=== PATIENT | male | born 1955 | race Caucasian/White ===

== ENCOUNTER 2019-09-09 10:23 | Outpatient (CLI) | payer MEDICARE, SELFPAY ==
[2019-09-09 10:41] LABS: Basophils Absolute Auto 0.05 K/mm3 (0.00-0.10); Basophils Percent Auto 0.9 % (0.0-1.0); Eosinophils Absolute Auto 0.21 K/mm3 (0.02-0.50); Eosinophils Percent Auto 3.8 % (1.0-6.0); Hematocrit 33.2 % (40.0-54.0); Hemoglobin 10.7 g/dL (14.0-18.0); Immature Granulocyte Absolute 0.02 K/mm3 (0.00-0.00); Immature Granulocyte Percent A 0.4 % (0.0-0.0); Immature Platelet Fraction Pct 6.9 % (1.0-7.0); Lymphocytes Absolute Auto 0.81 K/mm3 (1.10-4.50); Lymphocytes Percent Auto 14.7 % (18.0-42.0); Mean Corpuscular HGB Conc 32.2 g/dL (32.0-36.0); Mean Corpuscular Hemoglobin 29.6 pg (27.0-31.0); Mean Corpuscular Volume 91.7 fL (78.0-102.0); Mean Platelet Volume 11.5 fl (8.7-11.0); Monocytes Absolute Auto 0.54 K/mm3 (0.10-0.90); Monocytes Percent Auto 9.8 % (2.0-11.0); Neutrophils Absolute Auto 3.9 K/mm3 (1.7-7.2); Neutrophils Percent Auto 70.4 % (50.0-70.0); Platelet Count Result 120 K/mm3 (150-420); Red Blood Count 3.62 M/mm3 (4.70-6.10); Red Cell Distribution Width 14.1 % (11.6-14.4); White Blood Count 5.5 K/mm3 (4.8-10.8)
[2019-09-09 11:18] LABS: Alanine Aminotransferase 13 U/L (16-63); Albumin Level 4.2 g/dL (3.4-5.0); Alkaline Phosphatase 148 U/L (46-116); Anion Gap 16.8 mmol/L (7-16); Aspartate Amino Transferase 12 U/L (15-37); Bilirubin,Total 0.3 mg/dL (0.00-1.00); Blood Urea Nitrogen 14 mg/dL (7-18); Calcium 9.8 mg/dL (8.5-10.1); Carbon Dioxide 27 mmol/L (21-32); Chloride 103 mmol/L (98-108); Cholesterol 155 mg/dL (0-200); Estimated Glomerular Filt Rate 34; Glucose 95 mg/dL (70-99); HDL Direct 32 mg/dL (40-60); LDL Cholesterol Calculated 99 mg/dL (<130); Osmolality Calculated 296 mOsm/kg (285-295); Potassium 3.8 mmol/L (3.5-5.1); Sodium 143 mmol/L (136-145); Total Protein 8.2 g/dL (6.4-8.2); Triglycerides 121 mg/dL (0-150)
[2019-09-09 12:41] LABS: Thyroid Stimulating Hormone Reflex 7.29 u/IU/mL (0.36-3.74)
== END 2019-09-09 10:24 | disposition home or self-care (01) ==
LOC: CHSLAB 10:28
PROVIDERS: PCP Family Medicine; Visit Provider Family Medicine
DX: E20.9 Hypoparathyroidism, unspecified (principal); G40.909 Epilepsy, unspecified, not intractable, without status epilepticus; Z79.899 Other long term (current) drug therapy
CPT/HCPCS: 36415; 80053; 80061; 80184; 84439; 84443; 85025; 85055

== ENCOUNTER 2020-03-09 10:00 | Outpatient (CLI) | payer MEDICARE, SELFPAY ==
[2020-03-09 11:07] LABS: Alanine Aminotransferase 10 U/L (16-63); Albumin Level 3.6 g/dL (3.4-5.0); Alkaline Phosphatase 105 U/L (46-116); Anion Gap 12 mmol/L (8-16); Aspartate Amino Transferase 13 U/L (15-37); Bilirubin,Total 0.5 mg/dL (0.00-1.00); Blood Urea Nitrogen 23 mg/dL (7-18); Carbon Dioxide 26 mmol/L (21-32); Chloride 102 mmol/L (98-108); Estimated Glomerular Filt Rate 20; Glucose 93 mg/dL (70-99); Osmolality Calculated 293 mOsm/kg (285-295); Potassium 3.9 mmol/L (3.5-5.1); Sodium 140 mmol/L (136-145); Total Protein 7.7 g/dL (6.4-8.2)
[2020-03-09 11:29] LABS: Thyroid Stimulating Hormone Reflex 7.19 u/IU/mL (0.36-3.74)
[2020-03-09 12:03] LABS: Free T4 Free Thyroxine Reflex 0.99 ng/dL (0.76-1.46)
[2020-03-13 05:04] LABS: T4 Thyroxine 7.3 mcg/dL (4.9-10.5)
[2020-03-13 10:20] LABS: Total Triiodothyronine (T3) 86 ng/dL (76-181)
== END 2020-03-09 10:01 | disposition home or self-care (01) ==
PROVIDERS: PCP Family Medicine; Visit Provider Family Medicine
DX: R79.89 Other specified abnormal findings of blood chemistry (principal); E03.9 Hypothyroidism, unspecified; G40.909 Epilepsy, unspecified, not intractable, without status epilepticus
CPT/HCPCS: 36415; 80053; 80184; 84436; 84439; 84443; 84480

== ENCOUNTER 2020-04-04 14:45 | Emergency (ER) | payer MEDICARE, MEDICAID, SELFPAY ==
[2020-04-04] VITALS (11 sets, daily range): BP systolic 100–136; BP diastolic 51–68; PULSE 64–88; RESP 12–16; TEMP 35.9–36.9; O2SAT 96–100
--- NOTE | ~2020-04-04 | XR_ITS ---
EXAMINATION: XR chest 1V portable DATE: 04/04/2020 15:34 INDICATION: Syncope. TECHNIQUE: A single frontal view of the chest was obtained. COMPARISON: None. FINDINGS: The patient is rotated slightly to his right. There is mild atelectasis at left lung base. No pleural effusion or pneumothorax. The heart size is normal. There is enlargement of the superior m ediastinum. IMPRESSION: 1. Mild atelectasis at left lung base. 2. Enlargement of the superior mediastinum, which may be lymphadenopathy or a variant of vascularity. Chest CT with contrast is recommended. Reviewed, dictated and finalized at location A. IMPRESSION: 1. Mild atelectasis at left lung base. 2. Enlargement of the superior mediastinum, which may be lymphadenopathy or a v ariant of vascularity. Chest CT with contrast is recommended.
--- NOTE | ~2020-04-04 | CT_ITS ---
EXAMINATION: CT brain wo con DATE: 04/04/2020 15:33 INDICATION: Altered mental status TECHNIQUE: Computed tomography (CT) of the head was performed without intravenous contrast. Sagittal and coronal reconstructions were performed. The mA was adjusted according to patient size. Iterative reconstruction technique was employed. The dose-length product was 756.67 mGy-cm. COMPARISON: None FINDINGS: No acute intracranial hemorrhage, acute infarction or abnormal extra axial fluid collection. There is mild to moderate scattered white matter hypoattenuation consistent with chronic small vessel ischemi c disease. Dystrophic parenchymal calcifications at the bilateral basal ganglia including the lentifo rm nuclei and caudate nuclei, thalami in the bilateral frontal ring radiata and at the bilateral ce rebellar hemispheres, left greater than right. Symmetric prominence of the sulci consistent with mild age-appropriate diffuse cerebral volume loss. Ventricles are normal and symmetric. No mass/mass eff ect. Changes of bilateral intraocular lens replacement. The orbits, paranasal sinuses and mastoid air cells are normal. IMPRESSION: 1. No acute intracranial process. 2. Calcifications at the bilateral basal ganglia, thalami, ring radiata white matter and cerebellum consistent with Fahr syndrome. Differential would include primary Fahr disease or secondary calcific ation related to parathyroid hormone endocrinopathy, vasculitis, mitochondrial disorder, chronic infe ction or prior toxic insult. 3. Mild to moderate scattered white matter hypoattenuation which could be related to chronic small ve ssel ischemic disease or in etiology as the calcifications. Reviewed, dictated and finalized at location A. IMPRESSION: 1. No acute intracranial process. 2. Calcifications at the bilateral basal ganglia, thalami, ring radiata white matter and cerebellum consistent with Fahr syndrome. Differential would includ e primary Fahr disease or secondary calcification related to parathyroid hormon e endocrinopathy, vasculitis, mitochondrial disorder, chronic infection or prio r toxic insult. 3. Mild to moderate scattered white matter hypoattenuation which could be relat ed to chronic small vessel ischemic disease or in etiology as the calcification s.
--- NOTE | 2020-04-04 14:49 | ECG_ITS ---
Measurements Intervals [place] Rate: 63 P: 75 WY: 203 QRS: 60 QRSD: 119 T: 25 QT: 418 QTc: 431 Interpretive Statements SINUS RHYTHM BORDERLINE AV CONDUCTION DELAY INCOMPLETE RIGHT BUNDLE BRANCH BLOCK NONSPECIFIC ST & T-WAVE ABNORMALITY- DIFFUSE LEADS BASELINE ARTIFACT- I, II, III, AVR, AVL, AVF, V1 BORDERLINE ECG Electronically Signed On 04-04-2020 16:46:50 CDT by Mitlu May D.O.
--- NOTE | 2020-04-04 14:51 | ED.AMS ---
HPI - Altered Mental Status General Chief Complaint: Altered Mental Status Stated Complaint: AMB Time Seen by Provider: 04/04/20 14:51 Source: EMS Mode of arrival: EMS Limitations: altered mental status History of Present Illness HPI narrative: 65-year-old man brought to the emergency department by EMS after his neighbor saw him slumped over in his chair for at least a 20 minute period. EMS found him he will hemodynamically stable but nonresponsive. Blood glucose in the ambulance was 160. No seizure activity was witnessed by the bystander or EMS. Further questioning has the patient denying hematuria, black or bloody stools, vomiting and blood in vomitus. complaint: altered mental status Onset (ago): unknown Severity: severe Consistency of symptoms: constant Context: seizure disorder Treatments prior to arrival: IV fluid Related Data Home Medications Medication Instructions Recorded Confirmed ergocalciferol (vitamin D2) 1,250 mcg PO WEEKLY 04/04/20 04/04/20 [Vitamin D2] Allergies Allergy/AdvReac Type Severity Reaction Status Date / Time ciprofloxacin Allergy Intermediate Rash Verified 03/09/20 09:31 clavulanic acid [Augmentin] Allergy Intermediate Rash Verified 03/09/20 09:31 doxorubicin Allergy Intermediate Rash Verified 03/09/20 09:31 amoxicillin [Augmentin] Allergy Mild Rash Verified 03/09/20 09:31 minocycline Allergy Mild Rash Verified 03/09/20 09:31 Sulfonamides Allergy Intermediate Rash Uncoded 12/29/19 10:28 Dilantin-125 Allergy Mild Rash Uncoded 12/29/19 10:28 Review of Systems Review of Systems: ROS unobtainable: Yes unobtainable due to mental status PMFSH Past Medical History Medical History Elevated TSH GERD (gastroesophageal reflux disease) Hypoparathyroidism Seizure disorder Surgical History Surgical History History of appendectomy 2009 History of hernia repair 1977 & 1961 Social History Social History Smoking status: Former smoker Additional smoking assessment comments: 15 pack year history Gender identity (if verbalized by the patient): Male Exam Const: General: no acute distress and ill appearing Limitations: altered mental status (GCS 13) Other: oriented to self, date of HENMT: Head: normal to inspection Ears: external ears normal, TM's normal bilaterally and EAC's normal Face and sinus: normal facial exam Mouth: Yes moist mucous membranes Throat: posterior oropharynx normal Eyes: Conjunctivae: conjunctivae normal Pupils: Equal, round and reactive pupils present EOM: EOMs intact bilaterally Other: Right pupil irregularly shaped. Neck: Neck: normal visual inspection and no lymphadenopathy Resp: Effort & Inspection: normal respiratory effort and not labored Auscultation: clear to auscultation bilaterally, no rales, no rhonchi and no wheezes Cardio: Rate: regular rate Rhythm: regular rhythm Heart sounds: no murmurs GI: GI Palp: Yes Soft to palpation, No Tenderness to palpation present (GI), No Guarding due to palpation present (GI), No Rigid due to palpation and No Palpable mass present Skin: General skin exam: no jaundice and pallor Rashes: no rashes Neuro: General: moves all extremities and no focal motor deficits Cranial nerves: Yes Nystagmus not present Speech: Abnormal speech present slurred Extrem: General: normal to inspection and no clubbing, cyanosis or edema Psych: Appearance: grossly normal and well kempt Affect: normal affect Attitude: cooperative Course Course Emergency Course: 1625: patient is gradually becoming more responsive however he is still quite disoriented. Patient states that he wants to go home. I explained to the patient that he has severe renal failure as well as severe anemia and needs hospitalization for treatment. Patient reiterated that he want
[2020-04-04 14:58] LABS: Glucose Point of Care 120 (65-105)
[2020-04-04] MEDS: SODIUM CHLORIDE 0.9% IV 1,000 ML 999 ML IV CONT (15:00)
[2020-04-04 15:09] LABS: Occult Blood Negative (Negative)
[2020-04-04 15:11] LABS: Add Urine Microscopic? YES; Appearance Urine Clear (Clear); Bilirubin Urine Negative (Negative); Blood Urine 1+ (Negative); Color Urine Yellow (Yellow); Glucose Urine UA Negative (Negative); Ketones Urine Negative (Negative); Leukocyte Esterase Ur Negative (Negative); Nitrate Urine Negative (Negative); Protein Urine Negative (Negative); Specific Grav Ur 1.015 (1.010-1.020); Urobilinogen Urine 0.2 mg/dL (0.2-1.0)
[2020-04-04 15:17] LABS: Base Excess ABG -1.2 mmol/L (0-2); HCO3 ABG 22.6 mmol/L (23-29); Oxygen Content ABG 9.9 %vol (16.0-22.0); Oxygen Saturation ABG 99.1 % (95-97); Oxyhemoglobin 96.4 % (94-100); PCO2 ABG 33.7 mmHg (35-45); PO2 ABG 197.7 mmHg (80-90); Total Hemoglobin 6.9 g/dL; pH ABG 7.45 (7.35-7.45)
[2020-04-04 15:18] LABS: Basophils Absolute Auto 0.02 K/mm3 (0.00-0.10); Basophils Percent Auto 0.4 % (0.0-1.0); Eosinophils Absolute Auto 0.12 K/mm3 (0.02-0.50); Eosinophils Percent Auto 2.5 % (1.0-6.0); Immature Granulocyte Absolute 0.04 K/mm3 (0.00-0.00); Immature Granulocyte Percent A 0.8 % (0.0-0.0); Immature Platelet Fraction Pct 5.7 % (1.0-7.0); Lymphocytes Absolute Auto 0.33 K/mm3 (1.10-4.50); Lymphocytes Percent Auto 6.9 % (18.0-42.0); Mean Corpuscular HGB Conc 32.1 g/dL (32.0-36.0); Mean Corpuscular Hemoglobin 33.3 pg (27.0-31.0); Mean Corpuscular Volume 103.9 fL (78.0-102.0); Mean Platelet Volume 11.6 fl (8.7-11.0); Monocytes Absolute Auto 0.29 K/mm3 (0.10-0.90); Neutrophils Percent Auto 83.4 % (50.0-70.0); Platelet Count Result 81 K/mm3 (150-420); Red Cell Distribution Width 13.7 % (11.6-14.4); White Blood Count 4.8 K/mm3 (4.8-10.8)
[2020-04-04 15:19] LABS: WBC Urine 0-3 /hpf (0-3)
[2020-04-04 15:20] LABS: Bacteria Urine Trace /hpf; Squamous Epithelial Cell Urine Few /hpf (Few)
[2020-04-04 15:22] LABS: Hematocrit 18.7 % (40.0-54.0)
[2020-04-04 15:26] LABS: Device ROOM AIR; Modified Allen's Test Pass; Site Drawn RIGHT BRACHIAL
[2020-04-04 15:30] LABS: INR 1.2; Partial Thromboplastin Time 29.7 SEC (22.3-31.6)
[2020-04-04 15:33] LABS: Lactic Acid Reflex 1.3 mmol/L (0.4-2.0)
[2020-04-04 15:40] LABS: Acetaminophen 2 ug/mL (10-30); Alanine Aminotransferase 11 U/L (16-63); Albumin Level 3.2 g/dL (3.4-5.0); Alkaline Phosphatase 88 U/L (46-116); Ammonia 12 umol/L (11-32); Anion Gap 11 mmol/L (8-16); Aspartate Amino Transferase < 10 U/L (15-37); Bilirubin,Total 0.5 mg/dL (0.00-1.00); Blood Urea Nitrogen 29 mg/dL (7-18); Calcium 10.9 mg/dL (8.5-10.1); Carbon Dioxide 26 mmol/L (21-32); Chloride 103 mmol/L (98-108); Estimated CRCL calculation 17 ml/min; Estimated Glomerular Filt Rate 17; Ethanol 3 mg/dL (0-6); Glucose 120 mg/dL (70-99); Osmolality Calculated 296 mOsm/kg (285-295); Potassium 2.6 mmol/L (3.5-5.1); Salicylate 2.2 mg/dL (2.8-20.0); Sodium 140 mmol/L (136-145); Total Protein 6.6 g/dL (6.4-8.2)
[2020-04-04 15:41] LABS: Creatine Kinase < 7 U/L (39-308); Troponin I < 0.02 ng/mL (0.00-0.056)
[2020-04-04] MEDS: SODIUM CHLORIDE 0.9% IV 250 ML 30 ML IV CONT (16:40)
[2020-04-04 16:53] LABS: Creatine Kinase 9 U/L (39-308); Lactate Dehydrogenase 80 U/L (85-227); Phosphorus 3.7 mg/dL (2.6-4.7)
== END 2020-04-04 20:20 | disposition short-term general hospital (02) ==
PROVIDERS: Emergency Provider Emergency Medicine; PCP Family Medicine
DX: G40.909 Epilepsy, unspecified, not intractable, without status epilepticus (principal); E87.6 Hypokalemia; R41.0 Disorientation, unspecified; D64.9 Anemia, unspecified; N17.9 Acute kidney failure, unspecified; K21.9 Gastro-esophageal reflux disease without esophagitis; E20.9 Hypoparathyroidism, unspecified; Z87.891 Personal history of nicotine dependence
CPT/HCPCS: 36415; 36430; 36600; 70450; 71045; 80053; 80184; 80307; 81001; 82140; 82272; 82550; 82805; 83605; 83615; 84100; 84443; 84484; 85025; 85055; 85610; 85730; 86850; 86900; 86901; 86920; 87040; 93005; 96360; 96361; 99285; J7030; J7050; P9016

== ENCOUNTER 2020-04-04 21:16 | Inpatient (IN) | payer MEDICARE, MEDICAID, SELFPAY ==
--- NOTE | ~2020-04-04 | US_ITS ---
EXAMINATION: US renal BI DATE: 04/05/2020 15:47 INDICATION: Chronic renal failure TECHNIQUE: Multiple ultrasound grayscale images of the kidneys were obtained. COMPARISON: None. FINDINGS: The right kidney measures 9.2 x 4.3 x 5.1 cm. The left kidney measures 10.2 x 4.6 x 4.9 cm. The kidne ys demonstrate normal echogenicity. There is no hydronephrosis in either kidney. No stones identifie d. The bladder is decompressed around a Urias catheter which limits evaluation. IMPRESSION: 1. Normal kidneys without hydronephrosis. Reviewed, dictated and finalized at location A.
--- NOTE | 2020-04-04 21:42 | ADMGEN ---
This patient, Phong Lee, was admitted to Medical Room 249-01. Patient/family oriented to hospital policies and general routines including ID bracelet, bed and alarms, visiting hours, pain management, procedures, bathroom and other care routines, personal items, smoking policy, room service/diet, and visiting hours. Valuables list has been completed. Information on how to activate the Rapid Response Team has been discussed. Patient/Family are encouraged to report perceived risks to care and to ask questions if they do not understand what they are told or what they should do.
[2020-04-04 21:48] VITALS: BP 134/58; PULSE 73; RESP 16; TEMP 36.9; O2SAT 100
[2020-04-04 22:22] VITALS: BMI 25.7
[2020-04-04 22:31] LABS: Hematocrit 24.3 % (42.0-52.0); Hemoglobin 8.1 g/dL (14.0-18.0)
--- NOTE | 2020-04-04 22:42 | PM.IMHP ---
H&P: HPI History of Present Illness Date/Time: 04/04/20 22:42 Chief complaint: Severe anemia, confusion, disoriented Narrative: Phong Lee is a 65 year old male Who went to [facility] after his neighbor found him slumped over sitting along GI outside. The patient had been slumped over for at least 20 minutes. The patient had spent half the night with his mother in a skilled nursing who just recently this morning. The patient has a history of hypoparathyroidism and lives on his own. He does not have a power deputy county attorney and alexandr a his sister has been her biting some of the information. The patient is answering some questions but then the 1st me to his sister. She is not in the room with him she was not able to, because visiting hours are now over. However she said she will be here in the morning. He has a history of seizure activity and has not had any seizures in over 10 years that the sister is aware of. The patient tells me that he takes his seizure medicine and does not drink. Chest x-ray there was read as mild atelectasis at left lung base. Enlargement of the superior mediastinum which baby lymphadenopathy or very no vascularity. CT the chest is recommended. However his kidney functions are too poor to get the CT at this time. The patient was confused initially and a CT of the brain was performed at [facility]. It was read as nothing acute. 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 his H&H was noted to be 6.0 in 18.7. His BUN 29 creatinine 3.56. Potassium 2.6. I am not sure if the patient had a blood transfusion while at [facility]. The patient is alert and answering questions at this time. He is refusing most treatment. He told Dr. Jolley at [facility] that he wanted to go home. I called his sister alexandr marquez to get information and she will be calling him as well. The patient was refusing treatment and refusing consult when he got here but I explained to him that I spoke to alexandr on he is now agreeable to the consult. I am not sure that he received any supplement potassium replacement while he was at [place]. His TSH is 10.2 and is been known to have elevated TSH. Patient's potassium was found to be 2.6. Date of service 04/04/2020 Review of Systems Review of Systems: All systems reviewed & are unremarkable except as noted in HPI and below Constitutional: Constitutional: Reports as per HPI and Reports no additional constitutional complaints Eyes: Eyes: Reports as per HPI and Reports no additional eye complaints ENT: Reports system reviewed and no additional complaints, except as documented and Reports Normal hearing present Cardiovascular: Cardiovascular: Reports no additional cardiovascular complaints Respiratory: Respiratory: Reports no additional respiratory complaints and Reports no additional respiratory complaints Gastrointestinal: Gastrointestinal: Reports as per HPI and Reports no additional gastrointestinal complaints Musculoskeletal: Musculoskeletal: Reports no additional musculoskeletal complaints Integumentary/Breasts: Skin/Breast: Reports system reviewed and no additional complaints, except as docu and Reports as per HPI Neurologic: Reports system reviewed and no additional complaints, except as documented, Reports as per HPI and Reports Normal hearing present Psychiatric: Psychiatric: Reports no additional psychiatric complaints and Reports as per HPI Endocrine: Endocrine: Reports no additional endocrine complaints Hematologic/Lymphatic: Hematologic/Lymphatic: Reports no additional hematologic/lymphatic complaints Allergic/Immunologic: Allergic/Immunologic: Reports no additional allergic/immunologic complaints [facility] Past Medical History Medical History (Updated 04/04/20 @ 22:53 by Alyes Cosme NP) Chronic kidney disease the patient tells me he has not been seeing a s
[2020-04-04 22:53] LABS: Albumin Level 3.6 g/dL (3.5-5.1); Alkaline Phosphatase 87 U/L (38-126); Anion Gap 10 mmol/L (8-16); Aspartate Amino Transferase 11 U/L (17-59); Bilirubin,Total 0.9 mg/dL (0.2-1.3); Blood Urea Nitrogen 27 mg/dL (9-20); Calcium 10.9 mg/dL (8.4-10.2); Carbon Dioxide 26 mmol/L (22-30); Chloride 101 mmol/L (98-107); Estimated CRCL calculation 18 ml/min; Estimated Glomerular Filt Rate 18; Glucose 90 mg/dL (75-110); Sodium 137 mmol/L (137-145)
[2020-04-04 22:55] LABS: Alanine Aminotransferase < 6 U/L (4-50)
[2020-04-04] MEDS: SODIUM CHLORIDE 0.9% IV 1,000 ML 100 ML IV CONT (23:15)
[2020-04-05] VITALS (10 sets, daily range): BP systolic 106–147; BP diastolic 55–65; PULSE 73–83; RESP 16–21; TEMP 36.5–37; O2SAT 99–100
[2020-04-05 01:56] LABS: Add Urine Microscopic? YES; Appearance Urine Clear (Clear); Bacteria Urine Trace /hpf; Bilirubin Urine Negative (Negative); Blood Urine 2+ (Negative); Color Urine Straw (Yellow); Glucose Urine UA 1+ mg/dL (Negative); Ketones Urine Negative (Negative); Leukocyte Esterase Ur Trace LEU/UL (Negative); Nitrate Urine Negative (Negative); Protein Urine Negative (Negative); Specific Grav Ur 1.005 (1.001-1.035); Squamous Epithelial Cell Urine Rare /hpf (Few); Urobilinogen Urine Negative mg/dL (<2.0)
[2020-04-05 05:35] LABS: Hematocrit 21.5 % (42.0-52.0); Hemoglobin 7.1 g/dL (14.0-18.0)
[2020-04-05 06:41] LABS: Phenytoin Dilantin < 3 ug/mL (10-20)
--- NOTE | 2020-04-05 07:49 | PM.CNNEP ---
Assessment and Plan Assessment and plan (1) Chronic kidney disease: Code(s): N18.9 - Chronic kidney disease, unspecified Status: Chronic Assessment and Plan: the patient seems to have chronic kidney disease. It is not clear exactly what his baseline creatinine is it seems to have been slowly rising over the year. The patient does not have any signs or symptoms of any disorders that would affect the kidneys. He does not have any prostatic symptoms. No urinary symptoms. And no diseases that would affect his kidneys that we currently know about. he could have some sort of inflammatory disease like interstitial nephritis or glomerulonephritis. He also could have obstruction. He could also have an infiltrative disease such as multiple myeloma , especially with the high calcium, anemia, and low platelet count. TTP is a remote possibility as well. To evaluate this will get Her renal ultrasound, urine electrolytes and eosinophils, urine calcium, kappa lambda ratio, serum and urine immunofixation, serology, LDH, peripheral smear. Will continue IV fluids for now in case he is dehydrated. (2) Hypercalcemia: Code(s): E83.52 - Hypercalcemia Status: Acute Assessment and Plan: the patient has high calcium. This could be from dehydration. He is taking calcium, vitamin-D and also calcitriol. He could have some bony issue causing this hypercalcemia. Hyperparathyroidism can do this as well. Will check a PTH. doses reduced. (3) Seizure disorder: Code(s): G40.909 - Epilepsy, unspecified, not intractable, without status epilepticus Status: Acute Assessment and Plan: This is longstanding. It is not clear if this is what caused his chief complaint. (4) GERD (gastroesophageal reflux disease): Code(s): K21.9 - Gastro-esophageal reflux disease without esophagitis Status: Acute Assessment and Plan: The patient takes omeprazole as an outpatient (5) Anemia: Code(s): D64.9 - Anemia, unspecified Status: Acute Assessment and Plan: hemoglobin is quite low. This could be from several things. Chronic kidney disease can do this. GI blood loss. Hemolysis. TTP. Will look into these issues. We probably should get a heme consult considering his low platelets as well. History of Present Illness Reason for Consult Consult date: 04/06/20 Chief Complaint Chief complaint: Severe anemia, confusion, disoriented History of Present Illness Narrative: Phong is a very pleasant 65-year-old gentleman who has a seizur e disorder. This is been going on for many years and has not had a seizure for a long time. The patient says that he felt well over the weekend and Friday. He remembers everything from then. Friday was somewhat of a blur. according to the charts the patient was found by his neighbor slumped over sitting outside. He was tired at the time because he had spent a lot of time visiting with his recently passed mother. His neighbor called an ambulance and he was brought over to this [facility] evaluated there. He was found to have an elevated creatinine. He was transferred to [facility] for further care. He does not remember any fainting spell or seizure. He does not have any history of nausea vomiting or diarrhea. He does not take diuretics that he knows of. He has not been taken any [id number] medications. He denies bloody urine, foamy urine, kidney stones, or bladder infections. He has never been told he had kidney disease. Looking over the records, his creatinine was 3.17 in February and 1.99 in August. The patient has no history of hypertension diabetes heart attack or stroke. Review of Systems Constitutional: Constitutional: Reports no additional constitutional complaints Eyes: Eyes: Reports no additional eye complaints ENT: Reports system reviewed and no additional complaints, except as docu
[2020-04-05 07:52] LABS: Free T4 Free Thyroxine Reflex 0.97 ng/dL (0.78-2.19)
[2020-04-05] MEDS: POTASSIUM CHLORIDE 20 MEQ TABLET 40 MEQ PO ×2 (08:33→17:37)
[2020-04-05] MEDS: FOLIC ACID 1 MG TABLET PO (08:33)
[2020-04-05] MEDS: POTASSIUM CHLORIDE 10 MEQ TABLET.ER PO (08:33)
[2020-04-05] MEDS: calcitrioL 0.25 MCG CAPSULE 0.5 MCG PO ×3 (08:37→21:25)
[2020-04-05] MEDS: FERROUS SULFATE 324 MG TABLET PO (08:37)
[2020-04-05 08:39] LABS: Total Triiodothyronine (T3) 0.68 NG/ML (0.97-1.69)
[2020-04-05 11:19] LABS: IFOB Positive Control Positive; Immunochemical Fecal Occult Bl Positive (N)
[2020-04-05 11:53] LABS: Creatinine Urine 40.8 mg/dL; Total Protein Urine Random 53 mg/dL
[2020-04-05 11:55] LABS: Sodium Urine Random 67 meq/L
[2020-04-05] MEDS: SODIUM CHLORIDE 0.9% IV 1,000 ML 100 ML IV CONT (11:56)
--- NOTE | 2020-04-05 12:14 | WPDNEURCNPN ---
Assessment and Plan Assessment and plan (1) Anemia: Code(s): D64.9 - Anemia, unspecified Status: Acute (2) Hypercalcemia: Code(s): E83.52 - Hypercalcemia Status: Acute (3) Acute kidney injury: Code(s): N17.9 - Acute kidney failure, unspecified Status: Acute (4) Chronic kidney disease: Code(s): N18.9 - Chronic kidney disease, unspecified Status: Chronic (5) Elevated TSH: Code(s): R79.89 - Other specified abnormal findings of blood chemistry Status: Acute (6) Seizure disorder: Code(s): G40.909 - Epilepsy, unspecified, not intractable, without status epilepticus Status: Acute (7) GERD (gastroesophageal reflux disease): Code(s): K21.9 - Gastro-esophageal reflux disease without esophagitis Status: Acute (8) Hypoparathyroidism: Code(s): E20.9 - Hypoparathyroidism, unspecified Status: Acute Additional Plan the patient had a CT scan performed which shows calcification bilaterally suggestive of Fahr syndrome with multiple other etiologies this is likely has been present for quite some time and did not prop up recently however have recommended a brain MRI and looking into his parathyroid and thyroid status rest of the management as per the hospitalist's and the auto body worker Consult date: 04/05/20 Time Seen: 11:30 HPI: Phong Lee is a 65 year old male who is right-handed and was admitted because of significant anemia for which he received the blood transfusion at [facility] prior to coming here along with the elevation of the BUN and creatinine for for which consultation from the auto body worker has been sought patient is unable to give me any proper history and he does remember waking up in the ambulance who called the ambulance he does not even recall on the other hand he denies any headache nausea vomiting chest pain shortness of breath bodily injury chest pain he does tell me that he has had seizures but he does not feel that he had seizure this time The initial history and physical examination performed by the hospitalist has been reviewed and concurred Review of Systems Review of Systems: All systems reviewed & are unremarkable except as noted in HPI and below PMFSH Past Medical History Medical History Acute kidney injury Anemia Chronic kidney disease the patient tells me he has not been seeing a specialist. Elevated TSH GERD (gastroesophageal reflux disease) Hypercalcemia Hypoparathyroidism Seizure disorder Tongue abnormality the patient was tongue tied until his frenulum was clipped Surgical History Surgical History H/O cataract extraction History of appendectomy 2009 History of hernia repair 1977 & 1961 History of repair of congenital cleft palate Family History Family History Mother Diabetes mellitus Renal failure Father Alzheimer's dementia Other Family history of type 2 diabetes mellitus Hypertension Social History Social History Social History: the patient lives home alone. He is on disability. He told me that his sister is the power senior attorney but she tells me she is not power senior attorney in the patient does not have 1. The patient tells me that he wants to be a full code. He does not want a power senior attorney. He is single no children he is mentally challenged. No alcohol marijuana or illicit drugs. He said he does occasionally have cigarette. Years smoked: 40 Smoking status: Former smoker Tobacco type: cigarettes Additional smoking assessment comments: 15 pack year history Alcohol intake: never Substance use: never Gender identity (if verbalized by the patient): Male Spiritual care concerns: No Meds Home Medications and Allergies Home Medications Medication Instruct
--- NOTE | 2020-04-05 13:05 | PM.IMPN ---
Progress Note: A&P Assessment and Plan (1) Unresponsive episode: Code(s): R41.89 - Other symptoms and signs involving cognitive functions and awareness Status: Acute Assessment and Plan: Patient had unresponsive episode which is why EMS was called to his home while he was slumped over outside in a chair. Patient has a history of seizures in his been on medications which he states he has been taking as prescribed. He denies any seizures over the past 10 years. Differential includes orthostatic hypotension due to blood loss and dehydration, versus seizure activity versus underlying infection. The patient appears to be at baseline at this time and is A&O x4. Neurology was consulted due to his history of seizures and his confusion which resolved prior to being transferred to our facility Neurology ordered an MRI Will continue monitoring the patient's mental status and any signs and symptoms of a change in mental status. No acute signs of infection at this time. (2) Anemia: Qualifiers: Anemia type: unspecified type Qualified Code(s): D64.9 - Anemia, unspecified Code(s): D64.9 - Anemia, unspecified Status: Inactive Assessment and Plan: Severe acute anemia with a hemoglobin of 6 on arrival to the ER. He received 2 units of PRBCs at [facility] prior to arrival at our facility. Hemoglobin improved to 8.1 on his arrival here. Stool Hemoccult was positive. Differential includes possible GI bleed since he has a positive stool Hemoccult verses CKD verses underlying bone marrow disorder. Hematology was consulted and Dr. Morrell saw the patient and is completing further evaluation and workup which includes iron panel, vitamin B12, folic acid, and further workup to rule out TTP as a cause. Continue monitoring patient's H&H. Transfuse as needed. He is on ferrous sulfate and folic acid which will be continued. Appreciate hematology evaluation. (3) Chronic kidney disease: Code(s): N18.9 - Chronic kidney disease, unspecified Status: Chronic Assessment and Plan: Patient's creatinine back in August was 1.9 and repeat back in February was 3.2. On arrival to the ER his creatinine was 3.5. He was given IV fluid hydration for possible HIGINIO to see if his creatinine improves. He is stage IV almost 5. Nephrology was consulted who will further evaluate the patient's renal function with a renal ultrasound, urine electrolytes eosinophils, urine calcium, kappa lambda ratio, serum and urine immunofixation, serologies, LDH and peripheral smear. Will continue IV fluids for now to ensure he is not dehydrated Continue monitoring renal function and electrolytes. Appreciate Nephrology's input. (4) Seizure disorder: Code(s): G40.909 - Epilepsy, unspecified, not intractable, without status epilepticus Status: Inactive Assessment and Plan: Continue with his seizure medicine. Phenytoin level was less than 3. Phenobarbital level is pending. Neurology was consulted and wanted an MRI to be completed for further evaluation of the brain Appreciate neurology's input and any adjustments if necessary. (5) Acute hypokalemia: Code(s): E87.6 - Hypokalemia Status: Inactive Assessment and Plan: Potassium on arrival to ER was 2.6. It was supplemented and improved to 3. I gave him 50 mEq this morning and we will recheck his labs this afternoon. Continue monitoring potassium. Supplement is needed. Continue his potassium supplement from home. (6) Disease of mediastinum: Code(s): J98.59 - Other diseases of mediastinum, not elsewhere classified Status: Inactive Assessment and Plan: His chest x-ray shows some lymphadenopathy, enlar
[2020-04-05 13:44] LABS: Basophils Percent Auto 0.4 % (0.2-1.2); Eosinophils Absolute Auto 0.2 K/mm3 (0-0.3); Eosinophils Percent Auto 3.4 % (0-4.4); Hematocrit 23.4 % (42.0-52.0); Hemoglobin 7.8 g/dL (14.0-18.0); Immature Granulocyte Absolute 0.02 K/mm3 (0.00-0.031); Immature Granulocyte Percent A 0.4 % (0-0.5); Lymphocytes Absolute Auto 0.46 K/mm3 (0.9-3.2); Lymphocytes Percent Auto 9.9 % (18.3-44.2); Mean Corpuscular HGB Conc 33.3 g/dl (32-36); Mean Corpuscular Hemoglobin 32.5 pg (26-34); Mean Corpuscular Volume 97.5 fl (80-100); Mean Platelet Volume 12.1 fl (7.4-10.4); Monocytes Absolute Auto 0.3 K/mm3 (0.1-0.6); Neutrophils Absolute Auto 3.7 K/mm3 (1.3-6.7); Neutrophils Percent Auto 79.9 % (45.5-73.1); Platelet Count Result 81 k/mm3 (150-375); Red Cell Distribution Width 15.2 % (11.5-14.5); White Blood Count 4.6 K/mm3 (4.5-10.0)
[2020-04-05 13:54] LABS: Hemoglobin A1C 4.8 % (<5.7); Lactate Dehydrogenase 242 U/L (313-618)
[2020-04-05 13:56] LABS: Albumin Level 3.5 g/dL (3.5-5.1); Anion Gap 9 mmol/L (8-16); Blood Urea Nitrogen 25 mg/dL (9-20); Calcium 10.8 mg/dL (8.4-10.2); Carbon Dioxide 24 mmol/L (22-30); Chloride 104 mmol/L (98-107); Creatine Kinase 30 U/L (55-170); Estimated CRCL calculation 19 ml/min; Estimated Glomerular Filt Rate 20; Glucose 95 mg/dL (75-110); Magnesium 1.6 mg/dL (1.6-2.3); Phosphorus 2.4 mg/dL (2.5-4.5); Potassium 2.9 mmol/L (3.4-5.0); Sodium 137 mmol/L (137-145)
[2020-04-05 14:02] LABS: Complement C3 78 mg/dL (88-165)
[2020-04-05 14:04] LABS: Erythrocyte Sedimentation Rate 78 mm/hr (0-20); Transferrin 144 mg/dL (206-381)
[2020-04-05 14:10] LABS: Iron 86 ug/dL (49-181)
[2020-04-05 14:20] LABS: Percent Iron Saturation 36 % (20-50)
[2020-04-05 14:43] LABS: Hepatitis B Surface Antigen Negative (Negative)
[2020-04-05 15:01] LABS: Hepatitis B Surface Anti Res Positive; Hepatitis C Virus Antibody Negative (Negative)
[2020-04-05 15:02] LABS: Folic Acid 9.9 ng/mL (2.76->20); Vitamin B12 < 159.0 pg/mL (239-931)
[2020-04-05 16:35] LABS: Hematocrit 22.6 % (42.0-52.0); Hemoglobin 7.5 g/dL (14.0-18.0)
[2020-04-05] MEDS: CYANOCOBALAMIN INJ 1,000 MCG/ML VIAL 1000 MCG IM (17:36)
--- NOTE | 2020-04-05 17:36 | PDONCCN ---
HPI - Date of Consult Date/Time: 04/05/20 17:36 Requesting Physician: Gay Garay PA-C Primary Care Provider: Bonifacio Lawrence MD - Consult Narrative Reason for consult: Anemia and thrombocytopenia Narrative: Phong Lee is a 65 year old male This is a 65-year-old male was taken to the [facility] with mental status changes and confusion. Labs showed severe anemia and thrombocytopenia. CT scan of brain came back unremarkable. Chest x-ray showed enlarged superior mediastinum. The labs showed elevated creatinine of 3.56. Patient denies any previous history of kidney disorder. Patient lives by himself. He is quite slow and not able to answer many of the question. Most of the information was provided by the sister present in the room. He denies any fevers and chills. He denies any bleeding and bruising. Denies any recent weight changes. He has no previous history of malignancy. Review of Systems - Review of Systems All systems reviewed & are unremarkable except as noted in HPI and bel - Neurologic Reports system reviewed and no additional complaints, except as documented, Reports hearing normal [facility] Medical History: Medical History (Last Reviewed 04/05/20 @ 12:15 by Evaristo Lutz MD) Acute kidney injury Anemia Chronic kidney disease the patient tells me he has not been seeing a specialist. Elevated TSH GERD (gastroesophageal reflux disease) Hypercalcemia Hypoparathyroidism Seizure disorder Tongue abnormality the patient was tongue tied until his frenulum was clipped Surgical History: Surgical History (Last Reviewed 04/05/20 @ 12:15 by Evaristo Lutz MD) H/O cataract extraction History of appendectomy 2009 History of hernia repair 1977 & 1961 History of repair of congenital cleft palate Family History: Family History (Last Reviewed 04/05/20 @ 12:15 by Evaristo Lutz MD) Mother Diabetes mellitus Renal failure Father Alzheimer's dementia Other Family history of type 2 diabetes mellitus Hypertension - Social History Social History: Social History (Last Reviewed 04/05/20 @ 12:15 by Evaristo Lutz MD) Gender Identity: Gender identity (if verbalized by the patient): Male Alcohol Use: Alcohol intake: never Substance Use: Substance use: never Others: Spiritual care concerns: No Smoking Status: Smoking status: Former smoker Tobacco type: cigarettes Smoking Pack-years: Years smoked: 40 Comments: Additional smoking assessment comments: 15 pack year history Meds Home Medications Medication Instructions Recorded Confirmed Type calcitriol 0.5 mcg capsule 0.5 mcg PO TID 90 Days #270 cap 03/20/20 04/04/20 Rx calcium carbonate 600 mg (1,500 1 tablet PO DAILY #90 tablet 03/20/20 04/04/20 Rx mg)-vitamin D3 200 unit tablet ferrous sulfate 325 mg (65 mg 325 mg PO DAILY #90 tablet 03/20/20 04/04/20 Rx iron) tablet folic acid 1 mg tablet 1 mg PO DAILY #90 tablet 03/20/20 04/04/20 Rx omeprazole 20 mg capsule,delayed 20 mg PO DAILY #90 cap 03/20/20 04/04/20 Rx release potassium chloride 10 mEq 10 meq PO DAILY #90 tablet 03/20/20 04/04/20 Rx tablet,extended release phenobarbital 100 mg tablet 100 mg PO BID #60 tablet 03/22/20 04/04/20 Rx ergocalciferol (vitamin D2) 1,250 mcg PO WEEKLY 04/04/20 04/04/20 History [Vitamin D2] Allergies Allergy/AdvReac Type Severity Reaction Status Date / Time ciprofloxacin Allergy Intermediate Rash Verified 03/09/20 09:31 clavulanic acid [Augmentin] Allergy Intermediate Rash Verified 03/09/20 09:31 doxorubicin Allergy Intermediate Rash Verified 03/09/20 09:31 amoxicillin [Augmentin] Allergy Mild Rash Verified 03/09/20 09:31 erythromycin base Allergy Mild Rash Verified 04/05/20 15:37 minocycline Allergy Mild Rash Verified 03/09/20 09:31 tetracycline Allergy Mild Rash Verified 04/05/20 15:37 [From Achromycin] Sulfonamides Allergy Intermediate Rash Uncod
[2020-04-05] MEDS: MAGNESIUM SULF 2 GM/WATER 50ML 2 GM/50 ML BAG IVPB (17:37)
[2020-04-05] MEDS: POTASSIUM PHOS/SODIUM PHOS 250 MG TABLET PO (17:37)
[2020-04-05 22:59] LABS: Potassium 3.2 mmol/L (3.4-5.0)
[2020-04-06] VITALS (8 sets, daily range): BP systolic 123–148; BP diastolic 58–71; PULSE 73–84; RESP 16–21; TEMP 36.4–36.9; O2SAT 99–100
[2020-04-06] MEDS: SODIUM CHLORIDE 0.9% IV 1,000 ML 100 ML IV CONT (00:22)
[2020-04-06 05:50] LABS: Immature Platelet Fraction Pct 4.8 % (0.9-11.2); Mean Corpuscular HGB Conc 32.4 g/dl (32-36); Mean Corpuscular Hemoglobin 32.7 pg (26-34); Mean Platelet Volume 11.8 fl (7.4-10.4); Platelet Count Result 80 k/mm3 (150-375); Red Blood Count 2.08 M/mm3 (4.6-6.20); Red Cell Distribution Width 14.8 % (11.5-14.5); White Blood Count 4.1 K/mm3 (4.5-10.0)
[2020-04-06 05:53] LABS: Hemoglobin 6.8 g/dL (14.0-18.0)
[2020-04-06 06:03] LABS: Albumin Level 3.1 g/dL (3.5-5.1); Anion Gap 7 mmol/L (8-16); Blood Urea Nitrogen 21 mg/dL (9-20); Calcium 10.1 mg/dL (8.4-10.2); Carbon Dioxide 24 mmol/L (22-30); Chloride 106 mmol/L (98-107); Estimated CRCL calculation 21 ml/min; Estimated Glomerular Filt Rate 23; Glucose 83 mg/dL (75-110); Phosphorus 2.7 mg/dL (2.5-4.5); Sodium 137 mmol/L (137-145)
--- NOTE | 2020-04-06 06:58 | PM.PNNEP ---
Progress Note: A&P Assessment and Plan (1) Chronic kidney disease: Code(s): N18.9 - Chronic kidney disease, unspecified Status: Chronic Assessment and Plan: the patient seems to have chronic kidney disease. It is not clear exactly what his baseline creatinine is it seems to have been slowly rising over the year. Renal U/S shows smallish right kidney otherwise normal. U 'lytes nonprerenal, but the high calcium can effect this. ESR is 78 his creatinine today has dropped below Trupti's value. with improving creatinine, we can watch the labs come back while we hydrate. The patient has ckd but etiology is unclear. depending on how much better the creatinine gets and what the serology/immunofix show, we may consider biopsy at some point. (2) Hypercalcemia: Code(s): E83.52 - Hypercalcemia Status: Acute Assessment and Plan: calcium is better. calcitriol reduced. stop ergo. leave on ca supplements. history of hypoparathyroidism. await PTH and vit d levels. (3) Seizure disorder: Code(s): G40.909 - Epilepsy, unspecified, not intractable, without status epilepticus Status: Acute Assessment and Plan: This is longstanding. It is not clear if this is what caused his chief complaint. (4) GERD (gastroesophageal reflux disease): Code(s): K21.9 - Gastro-esophageal reflux disease without esophagitis Status: Acute Assessment and Plan: The patient takes omeprazole as an outpatient stool guaiac is positive. (5) Anemia: Code(s): D64.9 - Anemia, unspecified Status: Acute Assessment and Plan: hemoglobin is quite low. it dropped more today. hemoccult is positive. LDH is low. pathology doesn't mention schistocytes. more likely GI blood loss than hemolysis. consider a transfusion. GI consult? Subjective Date/time seen: 04/06/20 06:58 Interval history: awake. feels okay slept okay Review of Systems Cardiovascular: Cardiovascular: Reports no additional cardiovascular complaints Respiratory: Respiratory: Reports no additional respiratory complaints Gastrointestinal: Gastrointestinal: Reports no additional gastrointestinal complaints Genitourinary: Genitourinary: Reports no additional male genitourinary complaints Exam Narrative: Exam Narrative: wdwn male in nad lungs clear cor reg no rub abd BS+ nontender ext no edema skin no rash Objective Data Vital Signs Vital Signs: Vital Signs - 24 hr 04/05/20 08:00 04/05/20 10:00 04/05/20 12:00 Temperature 36.7 C Pulse Rate 77 77 80 Respiratory Rate 18 Blood Pressure 132/59 L Pulse Oximetry 99 04/05/20 14:00 04/05/20 16:00 04/05/20 17:30 Temperature 36.9 C 36.6 C Pulse Rate 77 83 81 Respiratory Rate 16 16 Blood Pressure 130/57 L 106/59 L Pulse Oximetry 100 99 04/05/20 20:00 04/05/20 22:00 04/06/20 00:00 Temperature 37.0 C Pulse Rate 73 76 80 Respiratory Rate 21 H Blood Pressure 147/65 H Pulse Oximetry 100 04/06/20 02:00 04/06/20 04:00 04/06/20 06:00 Temperature 36.9 C 36.4 C Pulse Rate 73 84 80 Respiratory Rate 21 H 20 Blood Pressure 137/71 123/58 L Pulse Oximetry 100 99 Intake/Output Intake/Output: Intake & Output 04/03/20 04/04/20 04/05/20 04/06/20 23:59 23:59 23:59 23:59 Intake Total 3435 950 Output Total 975 1675 Balance -975 1760 950 Meds/Results Medications: Active Medications Generic Name Dose Route Start Last Admin Trade Name Freq PRN Reason Stop Dose Admin Calcitriol 0.5 mcg 04/05/20 21:00 04/05/20 21:25 Rocaltrol PO 0.5 mcg Q12HR [facility] Administration Calcium Carbonate 500 mg 04/05/20 09:00 04/05/20 08:32 Os-Adams 500 +D Tablet PO 500 mg QAM [facility] Administration Cyanocobalamin 1,000 mcg 04/06/20 09:00 Vitamin B-12 Inj IM 04/08/20 09:01 DAILY [facility] Ferrous Sulfate 324 mg 04/05/20 08:00 04/05/20 08:37 Ferrous Sulfate PO 32
[2020-04-06 08:05] LABS: Magnesium 2.1 mg/dL (1.6-2.3)
--- NOTE | 2020-04-06 08:36 | PC.NURSE ---
Patient refused morning medications and refuses to allow me to do assessment. Notified LUIZA Kelly.
--- NOTE | 2020-04-06 10:04 | PC.NURSE ---
Patient refusing all medications for this morning, states I will take them at home. LUIZA Meeks notified.
--- NOTE | 2020-04-06 10:13 | PM.DS ---
DS: Admitting Diagnosis Admitting Diagnosis Admitting Diagnosis: Severe anemia, confusion, disoriented DS: Discharge Diagnosis Discharge Diagnosis (1) Unresponsive episode: Code(s): R41.89 - Other symptoms and signs involving cognitive functions and awareness Status: Acute Assessment and Plan: Patient had unresponsive episode which is why EMS was called to his home while he was slumped over outside in a chair. Patient has a history of seizures in his been on medications which he states he has been taking as prescribed. He denies any seizures over the past 10 years. Differential includes orthostatic hypotension due to blood loss and dehydration, versus seizure activity versus underlying infection. The patient appears to be at baseline at this time and is A&O x4. Neurology was consulted due to his history of seizures and his confusion which resolved prior to being transferred to our facility Neurology ordered an MRI for further work up and evaluation of unresponsive episode. The patient is refusing the MRI at this time and would like to be discharged Against medical advice. I explained to the patient that we cannot rule out an acute seizure activity in I recommend him not driving for at least 6 months or until he is cleared by a neurologist or primary care provider. I told him I would give him Dr. Lutz information so he can call the office and have further evaluation as an outpatient and treatment if necessary. * I explained to the patient's the risk of leaving against medical advice which include lightheadedness, dizziness, syncope, hypovolemia causing organ damage, heart attack, stroke, worsening kidney damage and even . the patient is A&O x4 and able to make decisions on his own. He understands that he could go home and but he does not want to receive further treatment here or evaluation. He says we are trying to take his money and leave him with large bills through his insurance. I have explained to him as well as the care coordination that he does have insurance and everything we are doing is an acute workup that should be covered by medical insurance. He states he has been at [facility] 1 other time in the past and he does not like his care here. I explained to him that I am willing to transfer him to another hospital if that means he will continue care and allow them to do further workup and evaluation. He states he does not want to be transferred anywhere else and he would like to go home at this time. the patient's sister Pam is his power of clinical support specialist. the patient allowed me to call and update her on everything that is going on. she was able to come in and convince him yesterday to have further lab work, renal ultrasound and testing completed. I explained to her About all of the changes, concerns of the patient leaving against medical advice with his severe anemia. I explain her we would like to give him a blood transfusion. She states he has called her 3 times today already and they have discussed staying in continuing treatment but he has refused. The patient is otherwise A&O x4 and able to make decisions on his own. She does not have any legal guardianship or legal authority to make him stay. The patient's sister Pam came up to the hospital at 3:30 p.m. and try to talk to the patient but cannot convince him to stay. She is leaving with him right now to take him back to his apartment because he is leaving against medical advice. (2) Anemia: Qualifiers: Anemia type: unspecified type Qualified Code(s): D64.9 - Anemia, unspecified Code(s): D64.9 - Anemia, unspecified Status: Inactive Assessment and Plan: Severe acute anemia with a hemoglobin of 6 on arrival to the ER. He received 2 units of PRBCs at [facility] prior to arrival at our facility. Hemoglobin improved t
--- NOTE | 2020-04-06 14:54 | PCOTNOTE ---
Received OT evaluation, but unable to complete at this time as patient's RN reported that patient is signing out AMA right now. OT evaluation was not completed this date.
[2020-04-08 05:01] LABS: Ionized Calcium 6.3 mg/dL (4.8-5.6)
[2020-04-08 10:38] LABS: Complement Total CH50 59 U/mL (31-60)
[2020-04-08 19:26] LABS: Kappa\\Lambda Light Chains 1.66 (0.26-1.65); Lambda Light Chain 51.3 mg/L (5.7-26.3)
[2020-04-09 22:30] LABS: Albumin 3.1 g/dL (3.8-4.8); Alpha 1 Globulin 0.4 g/dL (0.2-0.3); Alpha 2 Globulin 0.5 g/dL (0.5-0.9); Beta 1 Globulin 0.3 g/dL (0.4-0.6); Gamma Globulin 1.2 g/dL (0.8-1.7); Protein, Total 5.7 g/dL (6.1-8.1)
[2020-04-13 19:44] LABS: Urine Creatinine, Random 41 mg/dL (20-320)
[2020-04-18 15:39] LABS: Hepatitis B Core Ab Total Nonreactive
[2020-04-20 19:44] LABS: Calcium/Creatinine Ratio, Ur 364 mg/g creat (10-240); Urine Calcium, Random 14.9 mg/dL (***)
== END 2020-04-06 15:26 | disposition left against medical advice (07) | DRG 377 ==
PROVIDERS: Internal Medicine Hematology & Oncology; Internal Medicine Nephrology; Nurse Practitioner; Admitting Provider Internal Medicine; PCP Family Medicine; Visit Provider Physician Assistant
DX: K92.2 Gastrointestinal hemorrhage, unspecified (principal); J98.59 Other diseases of mediastinum, not elsewhere classified; D62 Acute posthemorrhagic anemia; N18.4 Chronic kidney disease, stage 4 (severe); N17.9 Acute kidney failure, unspecified; D63.1 Anemia in chronic kidney disease; I95.1 Orthostatic hypotension; E87.6 Hypokalemia; G40.909 Epilepsy, unspecified, not intractable, without status epilepticus; E20.9 Hypoparathyroidism, unspecified; R79.89 Other specified abnormal findings of blood chemistry; K21.9 Gastro-esophageal reflux disease without esophagitis; E83.52 Hypercalcemia; E86.0 Dehydration; E53.8 Deficiency of other specified B group vitamins; Z98.42 Cataract extraction status, left eye; Z98.41 Cataract extraction status, right eye; Z87.891 Personal history of nicotine dependence
CPT/HCPCS: 36415; 76775; 80053; 80069; 80185; 81001; 82274; 82306; 82310; 82330; 82550; 82570; 82607; 82728; 82746; 83036; 83519; 83540; 83550; 83615; 83735; 83883; 83970; 84132; 84155; 84156; 84165; 84300; 84439; 84443; 84466; 84480; 85014; 85018; 85025; 85027; 85055; 85652; 85999; 86038; 86160; 86162; 86334; 86335; 86704; 86706; 86803; 86850; 86900; 86901; 86923; 87340; A9270; J3420; J3475; J7030

== ENCOUNTER 2020-04-15 13:09 | Outpatient (CLI) | payer MEDICARE, MEDICAID, SELFPAY ==
[2020-04-15 13:31] LABS: Basophils Absolute Auto 0.04 K/mm3 (0.00-0.10); Basophils Percent Auto 0.7 % (0.0-1.0); Eosinophils Absolute Auto 0.22 K/mm3 (0.02-0.50); Eosinophils Percent Auto 3.7 % (1.0-6.0); Hematocrit 23.8 % (40.0-54.0); Hemoglobin 7.4 g/dL (14.0-18.0); Immature Granulocyte Absolute 0.01 K/mm3 (0.00-0.00); Immature Granulocyte Percent A 0.2 % (0.0-0.0); Immature Platelet Fraction Pct 6.3 % (1.0-7.0); Lymphocytes Percent Auto 11.9 % (18.0-42.0); Mean Corpuscular HGB Conc 31.1 g/dL (32.0-36.0); Mean Corpuscular Hemoglobin 31.9 pg (27.0-31.0); Mean Corpuscular Volume 102.6 fL (78.0-102.0); Mean Platelet Volume 11.4 fl (8.7-11.0); Monocytes Absolute Auto 0.45 K/mm3 (0.10-0.90); Monocytes Percent Auto 7.7 % (2.0-11.0); Neutrophils Absolute Auto 4.5 K/mm3 (1.7-7.2); Neutrophils Percent Auto 75.8 % (50.0-70.0); Platelet Count Result 101 K/mm3 (150-420); Red Blood Count 2.32 M/mm3 (4.70-6.10); White Blood Count 5.9 K/mm3 (4.8-10.8)
[2020-04-15 14:40] LABS: Anion Gap 9 mmol/L (8-16); Blood Urea Nitrogen 20 mg/dL (7-18); Calcium 11.3 mg/dL (8.5-10.1); Carbon Dioxide 29 mmol/L (21-32); Chloride 101 mmol/L (98-108); Estimated Glomerular Filt Rate 20; Glucose 87 mg/dL (70-99); Osmolality Calculated 289 mOsm/kg (285-295); Potassium 3.5 mmol/L (3.5-5.1); Sodium 139 mmol/L (136-145)
[2020-04-15 15:02] LABS: Thyroid Stimulating Hormone Reflex 5.14 u/IU/mL (0.36-3.74)
[2020-04-15 15:38] LABS: Free T4 Free Thyroxine Reflex 0.94 ng/dL (0.76-1.46)
[2020-04-20 12:32] LABS: T4 Thyroxine 6.4 mcg/dL (4.9-10.5)
== END 2020-04-15 13:10 | disposition home or self-care (01) ==
LOC: CHSLAB 13:11
PROVIDERS: PCP Family Medicine; Visit Provider Physician Assistant
DX: N17.9 Acute kidney failure, unspecified (principal); D64.9 Anemia, unspecified; E87.6 Hypokalemia; E83.52 Hypercalcemia
CPT/HCPCS: 36415; 80048; 84436; 84439; 84443; 85025; 85055

== ENCOUNTER 2020-05-06 09:20 | Outpatient (CLI) | payer MEDICARE, MEDICAID, SELFPAY ==
[2020-05-06 09:38] LABS: Basophils Absolute Auto 0.04 K/mm3 (0.00-0.10); Basophils Percent Auto 0.6 % (0.0-1.0); Eosinophils Absolute Auto 0.18 K/mm3 (0.02-0.50); Eosinophils Percent Auto 2.6 % (1.0-6.0); Hematocrit 23.1 % (40.0-54.0); Hemoglobin 7.2 g/dL (14.0-18.0); Immature Granulocyte Absolute 0.02 K/mm3 (0.00-0.00); Immature Granulocyte Percent A 0.3 % (0.0-0.0); Immature Platelet Fraction Pct 5.6 % (1.0-7.0); Lymphocytes Absolute Auto 0.88 K/mm3 (1.10-4.50); Lymphocytes Percent Auto 12.6 % (18.0-42.0); Mean Corpuscular HGB Conc 31.2 g/dL (32.0-36.0); Mean Corpuscular Hemoglobin 31.6 pg (27.0-31.0); Mean Corpuscular Volume 101.3 fL (78.0-102.0); Mean Platelet Volume 11.3 fl (8.7-11.0); Monocytes Absolute Auto 0.45 K/mm3 (0.10-0.90); Monocytes Percent Auto 6.4 % (2.0-11.0); Neutrophils Absolute Auto 5.4 K/mm3 (1.7-7.2); Neutrophils Percent Auto 77.5 % (50.0-70.0); Platelet Count Result 98 K/mm3 (150-420); Red Blood Count 2.28 M/mm3 (4.70-6.10); Red Cell Distribution Width 13.3 % (11.6-14.4)
[2020-05-06 10:17] LABS: Anion Gap 9 mmol/L (8-16); Blood Urea Nitrogen 24 mg/dL (7-18); Calcium 10.1 mg/dL (8.5-10.1); Carbon Dioxide 27 mmol/L (21-32); Chloride 104 mmol/L (98-108); Estimated Glomerular Filt Rate 18; Glucose 99 mg/dL (70-99); Osmolality Calculated 294 mOsm/kg (285-295); Sodium 140 mmol/L (136-145)
[2020-05-08 20:37] LABS: T4 Thyroxine 5.3 mcg/dL (4.9-10.5)
== END 2020-05-06 09:21 | disposition home or self-care (01) ==
LOC: CHSLAB 09:24
PROVIDERS: PCP Family Medicine; Visit Provider Family Medicine
DX: R79.89 Other specified abnormal findings of blood chemistry (principal); D64.9 Anemia, unspecified; N18.9 Chronic kidney disease, unspecified
CPT/HCPCS: 36415; 80048; 84436; 85025; 85055

== ENCOUNTER 2020-05-27 13:22 | Emergency (ER) | payer MEDICARE, MEDICAID, SELFPAY ==
--- NOTE | ~2020-05-27 | XR_ITS ---
EXAMINATION: XR chest 2V DATE: 05/27/2020 14:34 INDICATION: Weakness. TECHNIQUE: Frontal and lateral views of the chest were obtained. COMPARISON: Chest single view 04/04/2020, CT abdomen and pelvis 05/27/2020 FINDINGS: The chest demonstrates clear lungs without pneumonia, pleural effusion, or pneumothorax. Th e heart size is normal. There is a right-sided aortic arch. IMPRESSION: 1. No acute cardiopulmonary disease. 2. Right-sided aortic arch. Reviewed, dictated and finalized at location A. [employer]
--- NOTE | ~2020-05-27 | CT_ITS ---
EXAMINATION: CT abdomen pelvis wo con DATE: 05/27/2020 14:35 INDICATION: Generalized abdominal pain. TECHNIQUE: Computed tomography (CT) of the abdomen and pelvis was performed without intravenous contr ast. Automated exposure control and iterative reconstruction technique were employed. The dose-length product was 449.57 mGy-cm. COMPARISON: None. FINDINGS: The visualized portions of the lung bases demonstrate mild atelectasis. There are a few sca ttered pulmonary nodules measuring up to 6 mm. No pleural effusion. The heart size is normal. There a re coronary artery calcifications. No pericardial effusion. There is a small sliding hiatal hernia. T he liver and gallbladder are normal. There is moderate splenomegaly measuring 15.9 cm. The pancreas a nd adrenal glands are normal. There is a 2 mm stone in right kidney. Left kidney is normal. There is diffuse bladder wall thickening, likely secondary to chronic outlet obstruction from the mildly enlar ged prostate. There are multiple dilated loops of small bowel with transition point at the midline, c onsistent with small bowel obstruction. Anterior abdominal wall scarring is noted. There are no patho logically enlarged lymph nodes. There is no free intraperitoneal fluid. There is moderate lumbar spon dylosis. IMPRESSION: 1. Small bowel obstruction. 2. Pulmonary nodules measuring up to 6 mm, probably benign. Consider noncontrast chest CT in 6 months . 3. Moderate splenomegaly. Reviewed, dictated and finalized at location A. RPRETATIVE DANCER IMPRESSION: 1. Small bowel obstruction. 2. Pulmonary nodules measuring up to 6 mm, probably benign. Consider noncontras t chest CT in 6 months. 3. Moderate splenomegaly.
[2020-05-27 13:45] VITALS: BP 124/62; PULSE 71; RESP 14; TEMP 36.4; O2SAT 100
[2020-05-27] MEDS: SODIUM CHLORIDE 0.9% IV 500 ML 999 ML IV CONT (14:35)
[2020-05-27 14:48] LABS: Basophils Absolute Auto 0.05 K/mm3 (0.00-0.10); Basophils Percent Auto 0.7 % (0.0-1.0); Eosinophils Percent Auto 1.4 % (1.0-6.0); Hematocrit 21.4 % (40.0-54.0); Immature Granulocyte Absolute 0.04 K/mm3 (0.00-0.00); Immature Granulocyte Percent A 0.5 % (0.0-0.0); Immature Platelet Fraction Pct 6.8 % (1.0-7.0); Lymphocytes Percent Auto 6.8 % (18.0-42.0); Mean Corpuscular HGB Conc 32.2 g/dL (32.0-36.0); Mean Corpuscular Hemoglobin 31.7 pg (27.0-31.0); Mean Corpuscular Volume 98.2 fL (78.0-102.0); Mean Platelet Volume 11.5 fl (8.7-11.0); Monocytes Absolute Auto 0.33 K/mm3 (0.10-0.90); Monocytes Percent Auto 4.5 % (2.0-11.0); Neutrophils Absolute Auto 6.3 K/mm3 (1.7-7.2); Neutrophils Percent Auto 86.1 % (50.0-70.0); Platelet Count Result 103 K/mm3 (150-420); Red Blood Count 2.18 M/mm3 (4.70-6.10); Red Cell Distribution Width 13.1 % (11.6-14.4); White Blood Count 7.4 K/mm3 (4.8-10.8)
[2020-05-27 15:00] LABS: INR 1.1; Partial Thromboplastin Time 31.3 SEC (22.3-31.6); Prothrombin Time 11.7 Seconds (9.64-11.0)
[2020-05-27 15:05] LABS: Hemoglobin 6.9 g/dL (14.0-18.0)
[2020-05-27 15:06] LABS: Lactic Acid Reflex 1.4 mmol/L (0.4-2.0)
[2020-05-27 15:13] LABS: Alanine Aminotransferase 13 U/L (16-63); Albumin Level 3.7 g/dL (3.4-5.0); Alkaline Phosphatase 97 U/L (46-116); Anion Gap 13 mmol/L (8-16); Aspartate Amino Transferase < 10 U/L (15-37); Bilirubin,Total 0.3 mg/dL (0.00-1.00); Blood Urea Nitrogen 26 mg/dL (7-18); Carbon Dioxide 26 mmol/L (21-32); Chloride 101 mmol/L (98-108); Estimated CRCL calculation 19 ml/min; Estimated Glomerular Filt Rate 19; Glucose 113 mg/dL (70-99); Osmolality Calculated 295 mOsm/kg (285-295); Sodium 140 mmol/L (136-145); Total Protein 8.1 g/dL (6.4-8.2)
[2020-05-27 15:18] LABS: Add Urine Microscopic? YES; Appearance Urine Cloudy (Clear); Bilirubin Urine Negative (Negative); Blood Urine 1+ (Negative); Color Urine Yellow (Yellow); Glucose Urine UA Negative (Negative); Ketones Urine Negative (Negative); Leukocyte Esterase Ur 2+ (Negative); Nitrate Urine Negative (Negative); Protein Urine Trace (Negative); Specific Grav Ur 1.025 (1.010-1.020); Urobilinogen Urine 0.2 mg/dL (0.2-1.0); pH Urine 5.5 (5.0-8.0)
[2020-05-27 15:19] LABS: Occult Blood Negative (Negative)
[2020-05-27 15:20] LABS: Troponin I < 0.02 ng/mL (0.00-0.056)
[2020-05-27 15:21] LABS: Potassium 2.5 mmol/L (3.5-5.1)
[2020-05-27 15:23] LABS: WBC Urine >75 /hpf (0-3)
[2020-05-27 15:24] LABS: Bacteria Urine 4+ /hpf; Squamous Epithelial Cell Urine None seen /hpf (Few)
[2020-05-27 15:24] LABS: Thyroid Stimulating Hormone 11.73 uIU/mL (0.36-3.74)
--- NOTE | 2020-05-27 15:29 | ECG_ITS ---
Measurements Intervals [place] Rate: 67 P: [place]: 0 QRS: 61 QRSD: 97 T: 47 QT: 337 QTc: 357 Interpretive Statements SINUS RHYTHM BORDERLINE AV CONDUCTION DELAY LOW QRS VOLTAGE IN PRECORDIAL LEADS BORDERLINE ST-T WAVE ABNORMALITY- ANTEROLAT/INF LEADS BASELINE ARTIFACT- II, III, AVF BORDERLINE ECG Electronically Signed On 05-28-2020 18:07:59 [employer] APPRENTICE PASTR[employer] by Mitul May D.O.
[2020-05-27] MEDS: KCL 20 MEQ/SW 100 ML 100 ML 50 MEQ IVPB (15:40)
[2020-05-27] MEDS: SODIUM CHLORIDE 0.9% IV 250 ML 30 ML IV CONT (15:40)
--- NOTE | 2020-05-27 15:46 | PC.NURSE ---
VANNESA HOUSESUPERVISOR CONTACTED AT THIS TIME FOR TRANSFER. NO ANSWER, MESSAGE LEFT, AWAITING CALL BACK.
--- NOTE | 2020-05-27 16:26 | ED.ABDPAIN ---
HPI - Abdominal Pain General Chief Complaint: Abdominal Pain Stated Complaint: abd pain below ribs, weakness, loss of appetite Source: patient and family Mode of arrival: wheelchair History of Present Illness MD elicited complaint: abdominal pain Pertinent past history: none Onset (ago): hour(s) Pain Consistency: constant Location: diffuse Severity: moderate Pain scale (0-10): 6 Quality: aching, fullness and dull Radiation: other ( generalized) Exacerbating factors: nothing Relieving factors: nothing Associated symptoms: nausea and vomiting Related Data Home Medications Medication Instructions Recorded Confirmed calcitriol 0.5 mcg capsule 0.5 mcg PO DAILY cap 05/26/20 05/27/20 phenobarbital 100 mg PO BID 05/27/20 05/27/20 Allergies Allergy/AdvReac Type Severity Reaction Status Date / Time ciprofloxacin Allergy Intermediate Rash Verified 05/26/20 16:22 clavulanic acid [Augmentin] Allergy Intermediate Rash Verified 05/26/20 16:22 doxorubicin Allergy Intermediate Rash Verified 05/26/20 16:22 amoxicillin [Augmentin] Allergy Mild Rash Verified 05/26/20 16:22 erythromycin base Allergy Mild Rash Verified 05/26/20 16:22 minocycline Allergy Mild Rash Verified 05/26/20 16:22 tetracycline Allergy Mild Rash Verified 05/26/20 16:22 [From Achromycin] phenobarbital Allergy Fever Verified 05/27/20 14:19 Sulfonamides Allergy Intermediate Rash Uncoded 05/26/20 08:25 Dilantin-125 Allergy Mild Rash Uncoded 05/26/20 08:25 oramycin Allergy Mild Rash Uncoded 05/26/20 08:25 PMFSH Past Medical History Medical History (Updated 05/27/20 @ 17:30 by Paulino Vanegas MD) Acute kidney injury Anemia Chronic kidney disease the patient tells me he has not been seeing a specialist. Elevated TSH Epilepsy GERD (gastroesophageal reflux disease) Hypercalcemia Hypoparathyroidism Seizure disorder Tongue abnormality the patient was tongue tied until his frenulum was clipped Surgical History Surgical History H/O cataract extraction History of appendectomy 2009 History of hernia repair 1977 & 1961 History of repair of congenital cleft palate Family History Family History Mother Diabetes mellitus Renal failure Father Alzheimer's dementia Other Family history of type 2 diabetes mellitus Hypertension Social History Social History Social History: the patient lives home alone. He is on disability. He told me that his sister is the power county attorney but she tells me she is not power county attorney in the patient does not have 1. The patient tells me that he wants to be a full code. He does not want a power county attorney. He is single no children he is mentally challenged. No alcohol marijuana or illicit drugs. He said he does occasionally have cigarette. Years smoked: 40 Smoking status: Current every day smoker Tobacco type: cigarettes Additional smoking assessment comments: 15 pack year history Alcohol intake: never Substance use: never Gender identity (if verbalized by the patient): Male Spiritual care concerns: No Course Course Emergency Course: Patient currently stable continues to have abdominal discomfort with currently nausea with no vomiting discussed some findings with the patient's sister and in agreement with type and cross for transfusion of 1unit, ceftriaxone 1 g administered and replacement of his potassium levels. Spoke to DUSTIN Cosme, hospitalist at [facility] that accepted the patient and Dr. Choi will be the consulting surgeon. Vital Signs Vital signs: Vital Signs Temperature 36.4 C 05/27/20 13:45 Pulse Rate 71 05/27/20 13:45 Respiratory Rate 14 05/27/20 13:45 Blood Pressure 124/62 05/27/20 13:45 Pulse Oximetry 100 05/27/20 13:45 Temperature 36.4 C 05/27/20 13:45 Pulse Rate 71 05/27/20 13:45 Respirato
[2020-05-27 17:23] VITALS: BP 137/73; PULSE 82; RESP 14; TEMP 36.1; O2SAT 100
[2020-05-27 17:40] VITALS: BP 151/78; PULSE 80; RESP 14; TEMP 36.4; O2SAT 100
[2020-05-27] MEDS: SODIUM CHLORIDE 0.9% IV 250 ML 100 ML (17:42)
[2020-05-27] MEDS: ONDANSETRON INJ 4 MG/2 ML VIAL IV PUSH (17:50)
--- NOTE | 2020-05-27 18:15 | PC.NURSE ---
1716 LIZABETH SINGLE NEEDLE OPERATOR PROVIDED RN WITH ROOM ASSIGNMENT AND TELEPHONE REPORT NUMBER. ROOM [id number] ASSIGNED.
--- NOTE | 2020-05-27 18:15 | PC.NURSE ---
1255 TELEPHONE REPORT PROVIDED TO ELMER FREEMAN
--- NOTE | 2020-05-27 18:16 | PC.NURSE ---
1744 [facility] CONTACTED FOR TRANSFER ([facility] UNAVAILABLE FOR TRANSFERS). [facility] STATES IT WILL BE AT LEAST AN HOUR BEFORE TRANSPORT CAN ARRIVE AT [facility].
[2020-05-27 18:40] VITALS: BP 144/75; PULSE 77; RESP 14; TEMP 36.6; O2SAT 100
[2020-05-27 19:40] VITALS: BP 148/70; PULSE 80; RESP 21; TEMP 36.6; O2SAT 100
[2020-05-27 19:54] VITALS: BP 148/70; PULSE 80; RESP 21; TEMP 36.6; O2SAT 80
== END 2020-05-27 19:59 | disposition short-term general hospital (02) ==
PROVIDERS: Emergency Provider Emergency Medicine; PCP Family Medicine
DX: K56.691 Other complete intestinal obstruction (principal); E87.6 Hypokalemia; D64.89 Other specified anemias
CPT/HCPCS: 36415; 36430; 71046; 74176; 80053; 81001; 82272; 83605; 84443; 84484; 85025; 85055; 85610; 85730; 86850; 86900; 86901; 86923; 87040; 93005; 96361; 96365; 96366; 96368; 96375; 99285; J0696; J2405; J3480; J7040; J7050; P9016

== ENCOUNTER 2020-05-27 21:30 | Inpatient (IN) | payer MEDICARE, MEDICAID, SELFPAY ==
--- NOTE | ~2020-05-27 | XR_ITS ---
EXAMINATION: XR sm bowel follow through DATE: 05/28/2020 15:52 INDICATION: Small bowel obstruction TECHNIQUE: Disability Hearing Officer radiograph(s) of the abdomen was/were obtained. Oral contrast was administered, and sequential radiographs of the abdomen were obtained. Fluoroscopy was not performed. COMPARISON: CT from yesterday FINDINGS: Disability Hearing Officer image demonstrates dilated small bowel loops in the mid abdomen. No free intraperiton eal gas is identified. After contrast administration, multiple dilated small bowel loops opacify in t he mid and left mid abdomen. Contrast continues to a point in the mid abdomen and does not pass beyon d after four hours. At this point, the patient began to have emesis and the examination was ended. IMPRESSION: 1. Small bowel obstruction. Reviewed, dictated and finalized at location A. HET SETTER IMPRESSION: 1. Small bowel obstruction.
--- NOTE | 2020-05-27 21:36 | PM.IMHP ---
H&P: HPI History of Present Illness Date/Time: 05/27/20 21:36 Chief complaint: Small bowel obstruction Narrative: Phong Lee is a 65 year old male who is well-known to me. The patient stated that he will hold this morning having abdominal pain. The patient stated that he had a normal bowel movement last night and then 2 days ago he said he had a huge bowel movement. He did not notice any blood in his stool. He does have a B12 deficiency and was seen by Dr. garcia in the past. The patient denies any headache. No chest pain no nausea vomiting or diarrhea. His abdomen is soft. Patient's hemoglobin was 6.9. Patient typically is 7.2 and 7.4. The patient also has chronic renal failure which could be contributing to this as well. Patient's abdominal pelvis CT was read as small-bowel obstruction. Pulmonary nodules measuring up to 6 mm probably benign consider noncardiac chest CT in 6 months. Moderate splenomegaly. Patient refused NG tube at [facility]. The patient was discharged from here on 04/04/20. The patient signed out AMA the last admission. Patient does have a history of seizures and was told that he probably needs to change seizure medicine due to his chronic renal failure. In was told by his neurologist not to change his seizure medicine. Patient's creatinine is 3.33 at last month it was 3.47 in March was 3.22. So this probably is his baseline. Patient's potassium was 2.5 today previously was 3.2. Patient's potassium is typically low. The patient was started on ceftriaxone for possibility of UTI. Surgery had been consulted. The house is hatch supervisor at [facility] notified them and they agreed to the consult. Patient is admitted to inpatient date of service 05/27/2020 Review of Systems Review of Systems: All systems reviewed & are unremarkable except as noted in HPI and below Constitutional: Constitutional: Reports as per HPI and Reports no additional constitutional complaints Eyes: Eyes: Reports as per HPI and Reports no additional eye complaints ENT: Reports system reviewed and no additional complaints, except as documented and Reports Normal hearing present Cardiovascular: Cardiovascular: Reports no additional cardiovascular complaints Respiratory: Respiratory: Reports no additional respiratory complaints and Reports no additional respiratory complaints Gastrointestinal: Gastrointestinal: Reports as per HPI and Reports no additional gastrointestinal complaints Musculoskeletal: Musculoskeletal: Reports no additional musculoskeletal complaints Integumentary/Breasts: Skin/Breast: Reports system reviewed and no additional complaints, except as docu and Reports as per HPI Neurologic: Reports system reviewed and no additional complaints, except as documented, Reports as per HPI and Reports Normal hearing present Psychiatric: Psychiatric: Reports no additional psychiatric complaints and Reports as per HPI Endocrine: Endocrine: Reports no additional endocrine complaints Hematologic/Lymphatic: Hematologic/Lymphatic: Reports no additional hematologic/lymphatic complaints Allergic/Immunologic: Allergic/Immunologic: Reports no additional allergic/immunologic complaints [facility] Past Medical History Medical History (Updated 05/27/20 @ 22:06 by Alyse Cosme NP) Acute kidney injury Anemia Chronic kidney disease the patient tells me he has not been seeing a specialist. Elevated TSH Epilepsy GERD (gastroesophageal reflux disease) Hypercalcemia Hypoparathyroidism Seizure disorder Tongue abnormality the patient was tongue tied until his frenulum was clipped Surgical History Surgical History H/O cataract extraction History of appendectomy 2009 History of hernia repair 1977 & 1961 History of repair of congenital cleft palate Family History Family History Mother Diabetes mellitus Renal failu
[2020-05-27 21:48] VITALS: BP 137/62; PULSE 78; RESP 16; TEMP 36.1; O2SAT 100; BMI 21.7
[2020-05-27 22:08] VITALS: BP 137/62; PULSE 78; RESP 16; TEMP 36.1; O2SAT 100; BMI 21.7
[2020-05-27 23:40] LABS: Add Urine Microscopic? YES; Appearance Urine Cloudy (Clear); Bacteria Urine Trace /hpf; Bilirubin Urine Negative (Negative); Blood Urine 1+ (Negative); Color Urine Straw (Yellow); Glucose Urine UA Negative (Negative); Ketones Urine Negative (Negative); Leukocyte Esterase Ur 3+ LEU/UL (Negative); Mucus Urine Rare /lpf; Nitrate Urine Negative (Negative); Protein Urine Negative (Negative); Specific Grav Ur 1.008 (1.001-1.035); Urobilinogen Urine Negative mg/dL (<2.0); WBC Clumps Urine Present /HPF; WBC Urine >75 /hpf
[2020-05-27] MEDS: DEXTROSE 5%/0.45% SOD CHL 1,000 ML 100 ML IV CONT (23:49)
--- NOTE | 2020-05-28 01:26 | ADMGEN ---
Addendum entered by Ana Mart RN 05/28/20 01:28: 2034 Original Note: This patient, Phong Lee, was admitted to 2 Medical Room 248-01, 05/28/2020 at [id number]. Patient/family oriented to hospital policies and general routines including ID bracelet, bed and alarms, visiting hours, pain management, procedures, bathroom and other care routines, personal items, smoking policy, room service/diet, and visiting hours. Information on how to activate the Rapid Response Team has been discussed. Patient/Family are encouraged to report perceived risks to care and to ask questions if they do not understand what they are told or what they should do.
[2020-05-28 01:42] LABS: Basophils Percent Auto 0.5 % (0.2-1.2); Eosinophils Percent Auto 0.4 % (0-4.4); Hematocrit 24.4 % (42.0-52.0); Hemoglobin 8.2 g/dL (14.0-18.0); Immature Granulocyte Absolute 0.03 K/mm3 (0.00-0.031); Immature Granulocyte Percent A 0.4 % (0-0.5); Lymphocytes Absolute Auto 0.68 K/mm3 (0.9-3.2); Lymphocytes Percent Auto 8.8 % (18.3-44.2); Mean Corpuscular HGB Conc 33.6 g/dl (32-36); Mean Corpuscular Hemoglobin 31.8 pg (26-34); Mean Corpuscular Volume 94.6 fl (80-100); Mean Platelet Volume 11.6 fl (7.4-10.4); Monocytes Absolute Auto 0.5 K/mm3 (0.1-0.6); Monocytes Percent Auto 6.5 % (2.6-8.5); Neutrophils Absolute Auto 6.4 K/mm3 (1.3-6.7); Neutrophils Percent Auto 83.4 % (45.5-73.1); Platelet Count Result 94 k/mm3 (150-375); Red Blood Count 2.58 M/mm3 (4.6-6.20); Red Cell Distribution Width 13.4 % (11.5-14.5); White Blood Count 7.7 K/mm3 (4.5-10.0)
[2020-05-28 01:57] LABS: Anion Gap 9 mmol/L (8-16); Blood Urea Nitrogen 22 mg/dL (9-20); Carbon Dioxide 27 mmol/L (22-30); Chloride 103 mmol/L (98-107); Estimated CRCL calculation 22 ml/min; Estimated Glomerular Filt Rate 23; Glucose 109 mg/dL (75-110); Sodium 139 mmol/L (137-145)
[2020-05-28 01:58] LABS: Lactic Acid Reflex 1.1 mmol/L (0.7-2.1)
--- NOTE | 2020-05-28 03:08 | PC.NURSE ---
Pt has been uncooperative with lab. He refused the initial blood draws. Sash Finisher, Kym, attempted lab draws. Both times the pt refused to be stuck and would only allow for blood to be taken from his IV site. It was explained to him multiple times that that cannnot happen. Hospitalist Alyse called and was concerned the patients labs were not drawn especially with low potassium levels. I went back to the pt and explained the need and urgency of his blood draws. I was able to convince the pt to let phlebotomy come back and draw him. The pt's labs were late due to the repeated refusals. Pt stated he does not want to see anyone foreign . I explained to the patient that he has consults for several of our specialist with varying nationalities. Pt proceeded to state he does not want to see anyone except the house doctor . I stated to him he was transferred from [facility] for our specialized services here at [facility]. The pt said he does not want anyone to look at him because they will just take him off his phenobarbital and he will start having seizures again. I explained there are several medications that can be used to bridge him off his current anti-seizure med while helping his overall health state. Pt stated strongly that if the doctors took him off his medication he would leave tomorrow on his own. I contacted assisted living housekeeper, Kym, and explained the situation to her. She said to call Dr Hess and let him know and continue the consults unless I get an order to stop the consults.
--- NOTE | 2020-05-28 04:06 | PC.NURSE ---
Pt is hypokalemic with a level of 3.0. I called hospitalist for orders and received a 40meq K-ridder. After approximately 5 minutes the pt became very angry and wanted the medication stopped. He wanted all fluids stopped. Pt stated he was better and knows his body. I called Thomas Hess and notified him of the pt wishes. I also notified him that the pt doesn't want to see any of our specialist. I also told Jimena what the pt said about not wanting to see anyone foreign . Jimena said to document what the pt stated and said the pt can refuse his medications.
[2020-05-28 06:07] VITALS: BP 103/65; PULSE 103; RESP 16; TEMP 35.9; O2SAT 97
[2020-05-28 06:14] LABS: Basophils Percent Auto 0.6 % (0.2-1.2); Eosinophils Absolute Auto 0.1 K/mm3 (0-0.3); Eosinophils Percent Auto 1.2 % (0-4.4); Hematocrit 24.4 % (42.0-52.0); Hemoglobin 8.2 g/dL (14.0-18.0); Immature Granulocyte Absolute 0.03 K/mm3 (0.00-0.031); Immature Granulocyte Percent A 0.4 % (0-0.5); Lymphocytes Absolute Auto 0.72 K/mm3 (0.9-3.2); Lymphocytes Percent Auto 10.4 % (18.3-44.2); Mean Corpuscular HGB Conc 33.6 g/dl (32-36); Mean Corpuscular Hemoglobin 31.8 pg (26-34); Mean Corpuscular Volume 94.6 fl (80-100); Mean Platelet Volume 12.9 fl (7.4-10.4); Monocytes Absolute Auto 0.5 K/mm3 (0.1-0.6); Monocytes Percent Auto 7.5 % (2.6-8.5); Neutrophils Absolute Auto 5.5 K/mm3 (1.3-6.7); Neutrophils Percent Auto 79.9 % (45.5-73.1); Platelet Count Result 87 k/mm3 (150-375); Red Blood Count 2.58 M/mm3 (4.6-6.20); Red Cell Distribution Width 13.5 % (11.5-14.5); White Blood Count 6.9 K/mm3 (4.5-10.0)
[2020-05-28 06:21] LABS: Lactic Acid Reflex 0.9 mmol/L (0.7-2.1)
[2020-05-28 06:37] LABS: Alanine Aminotransferase 7 U/L (4-50); Albumin Level 3.3 g/dL (3.5-5.1); Alkaline Phosphatase 89 U/L (38-126); Anion Gap 10 mmol/L (8-16); Aspartate Amino Transferase 13 U/L (17-59); Bilirubin,Total 0.4 mg/dL (0.2-1.3); Blood Urea Nitrogen 22 mg/dL (9-20); CRP 2.7 mg/dL (<1.0); Carbon Dioxide 28 mmol/L (22-30); Chloride 102 mmol/L (98-107); Estimated CRCL calculation 22 ml/min; Estimated Glomerular Filt Rate 23; Glucose 92 mg/dL (75-110); Lipase 49 U/L (23-300); Magnesium 1.6 mg/dL (1.6-2.3); Potassium 2.8 mmol/L (3.4-5.0); Sodium 140 mmol/L (137-145)
[2020-05-28 07:06] LABS: Vitamin D 25 Hydroxy 45.5 ng/mL
--- NOTE | 2020-05-28 07:22 | PC.NURSE ---
pt decided to resume iv therapy this morning after informed of critical potassium. fluids and k ridder resumed
[2020-05-28 07:29] LABS: Folic Acid 3.6 ng/mL (2.76->20)
--- NOTE | 2020-05-28 08:44 | PM.IMPN ---
Progress Note: A&P Assessment and Plan (1) SBO (small bowel obstruction): Code(s): K56.609 - Unspecified intestinal obstruction, unspecified as to partial versus complete obstruction Status: Acute Assessment and Plan: Found on imaging performed at [facility]. Patient appears relatively comfortable this morning. General Surgery consulted from [facility] ED; appreciate recommendations. Initially refusing consultations, however he is agreeable to see the surgeon today. He is refusing his imaging this morning, however. He is refusing NG tube as well NPO diet for now Continue IVF Monitor closely Await further rec from General Surgery (2) Anemia: Qualifiers: Anemia type: other cause Other causes of anemia: other cause, not classified Qualified Code(s): D64.89 - Other specified anemias Code(s): D64.9 - Anemia, unspecified Status: Inactive Assessment and Plan: Patient has chronic anemia and has B12 injections weekly. He has seen Dr. Morrell in the past who has been consulted this hospital stay; appreciate recommendations. He was given 1 u pRBCs at [facility] with H&H stable this morning. Not reporting s/sx of blood loss at this moment. Full work up performed past admission. Stool occult ordered. He nevere followed up with GI as an outpatient. B12 and Folic acid low end of normal this hospital stay. Await further rec from Dr. Morrell Continue B12 supplementation and ferrous sulfate once off npo status; consider injections if Npo for extended period of time. Monitor Transfuse PRN (3) Acute hypokalemia: Code(s): E87.6 - Hypokalemia Status: Inactive Assessment and Plan: Patient appears to have chronically low potassium. He may need to be supplemented with potassium on a regular basis, but will monitor during stay. Initially refusing IV KCl, but agreeable this morning Monitor this afternoon with K level Replace as needed Will consider daily supplementation once off NPO status (4) Epilepsy: Code(s): G40.909 - Epilepsy, unspecified, not intractable, without status epilepticus Status: Chronic Assessment and Plan: No acute issues. Apparently his statistician applied instructed him to change his seizure medication however his neurologist was reluctant to change. He takes phenobarbital and does not appear to have any issues at this time. Does not appear this medication has definitive nephrotoxicity. Will have patient follow up with Neurologist as outpatient for further adjustments of anti-epileptics Continue phenobarbitol at IV dosing due to NPO status; switch to home PO dosing once off NPO status Monitor (5) Chronic kidney disease: Code(s): N18.9 - Chronic kidney disease, unspecified Status: Chronic Assessment and Plan: Possible acute on ckd on arrival to [facility], but appears to have improved and back at his baseline after IVF. Likely prerenal due to poor PO intake/n/v due to SBO Will monitor kidney function closely Continue IV fluids while NPO Will have patient follow up with Nephrology as outpatient (6) UTI (urinary tract infection): Code(s): N39.0 - Urinary tract infection, site not specified Status: Acute Assessment and Plan: UA suspicious of UTI; UCx pending. Patient vague if he has urinary symptoms or note Continue empiric therapy with Rocephin Tailor antibiotics to cultures (7) Hypoparathyroidism: Code(s): E20.9 - Hypoparathyroidism, unspecified Status: Acute Assessment and Plan: Patient on vitamin d/calcium; this is on hold due to NPO status Continue to monitor electrolytes Resume vitamin-D and calcium when appropriate
[2020-05-28 09:39] LABS: Free T4 Free Thyroxine Reflex 1.37 ng/dL (0.78-2.19)
[2020-05-28] MEDS: PANTOPRAZOLE SODIUM IV 40 MG VIAL IV PUSH ×2 (09:41→20:36)
[2020-05-28 10:27] LABS: Total Triiodothyronine (T3) 0.98 NG/ML (0.97-1.69)
[2020-05-28] MEDS: PHENobarbitaL sodium (*CRX) 130 MG/ML VIAL 100 MG IV PUSH (10:49)
--- NOTE | 2020-05-28 11:24 | PM.CNGS ---
Assessment and Plan Assessment and plan (1) SBO (small bowel obstruction): Code(s): K56.609 - Unspecified intestinal obstruction, unspecified as to partial versus complete obstruction Status: Acute Assessment and Plan: exam benign, pt refuses NG, will get SBS for further eval (2) Chronic kidney disease: Code(s): N18.9 - Chronic kidney disease, unspecified Status: Chronic Assessment and Plan: at baseline, mgmt per primary team (3) UTI (urinary tract infection): Code(s): N39.0 - Urinary tract infection, site not specified Status: Acute Assessment and Plan: stable, cont abx per primary team (4) Seizure disorder: Code(s): G40.909 - Epilepsy, unspecified, not intractable, without status epilepticus Status: Acute Assessment and Plan: stable, cont home meds History of Present Illness Consult details Consult date: 05/28/20 Reason for consult: abdominal pain Requesting physician: Dawn Menjivar MD Narrative: Pt is a 65 y/o M c multiple med issues presenting c/o crampy abd pain over last few days. Pt reports some mild distention and bloating gas well. Pt reports he has been having bowel movts although feels like he is not completely emptying. Pt denies any N/V. Review of Systems Constitutional: Constitutional: Denies anorexia, Denies body ache(s), Denies chills, Denies fatigue, Denies fever(s), Denies headache(s), Reports lethargy, Denies malaise, Reports weakness, Denies weight gain and Denies weight loss Eyes: Eyes: Reports no additional eye complaints ENT: Reports system reviewed and no additional complaints, except as documented Cardiovascular: Cardiovascular: Reports no additional cardiovascular complaints Respiratory: Respiratory: Reports no additional respiratory complaints Gastrointestinal: Gastrointestinal: Reports abdominal pain, Denies belching, Reports bloating, Denies change in bowel habits, Denies change in stool character, Reports constipation, Reports GI cramping, Denies heartburn, Denies diarrhea, Denies loose stools, Denies nausea and Denies vomiting Genitourinary: Genitourinary: Reports no additional male genitourinary complaints Musculoskeletal: Musculoskeletal: Reports no additional musculoskeletal complaints Integumentary/Breasts: Skin/Breast: Reports system reviewed and no additional complaints, except as docu Neurologic: Reports system reviewed and no additional complaints, except as documented Psychiatric: Psychiatric: Reports no additional psychiatric complaints Endocrine: Endocrine: Reports no additional endocrine complaints Hematologic/Lymphatic: Hematologic/Lymphatic: Reports no additional hematologic/lymphatic complaints Allergic/Immunologic: Allergic/Immunologic: Reports no additional allergic/immunologic complaints PMFSH Past Medical History Medical History Acute kidney injury Anemia Chronic kidney disease the patient tells me he has not been seeing a specialist. Elevated TSH Epilepsy GERD (gastroesophageal reflux disease) Hypercalcemia Hypoparathyroidism Seizure disorder Tongue abnormality the patient was tongue tied until his frenulum was clipped Surgical History Surgical History H/O cataract extraction History of appendectomy 2009 History of hernia repair 1977 & 1961 History of repair of congenital cleft palate Family History Family History Mother Diabetes mellitus Renal failure Father Alzheimer's dementia Other Family history of type 2 diabetes mellitus Hypertension Social History Social History Social History: the patient lives home alone. He is on disability. He told me that his sister is the power grape cutter but she tells me she is not power grape cutter in the patient d
[2020-05-28 12:00] VITALS: PULSE 69
[2020-05-28 13:35] LABS: Magnesium 1.6 mg/dL (1.6-2.3); Potassium 3.3 mmol/L (3.4-5.0)
[2020-05-28 14:00] VITALS: BP 137/66; PULSE 70; RESP 16; TEMP 36.1; O2SAT 100
[2020-05-28 16:00] VITALS: PULSE 64
[2020-05-28] MEDS: ONDANSETRON INJ 4 MG/2 ML VIAL IV PUSH (19:37)
[2020-05-28 20:00] VITALS: PULSE 78
[2020-05-28] MEDS: DEXTROSE 5%/0.45% SOD CHL 1,000 ML 100 ML IV CONT (20:35)
[2020-05-28 22:00] VITALS: BP 127/60; PULSE 75; RESP 16; TEMP 37; O2SAT 100
--- NOTE | 2020-05-28 23:08 | PC.NURSE ---
Pt upset after his last dose of rocephin and demanded to be unhooked from fluids. Tried to educate the pt about the need for continuous fluids especially since pt is NPO with a SBO. Pt is sitting in his bed and currently on telemetry. Will continue to monitor.
[2020-05-29] VITALS (8 sets, daily range): BP systolic 124–138; BP diastolic 59–64; PULSE 70–83; RESP 16–18; TEMP 36.6–36.9; O2SAT 100
--- NOTE | 2020-05-29 05:22 | PC.NURSE ---
Pt refusing all care including lab draws and treatment at this time. He states he will sign out AMA later. Dr. Hess has been notified and ordered to hold care at this time as requested by patient.
--- NOTE | 2020-05-29 09:36 | PC.NURSE ---
Patient continues to refuse all medications and interventions. I have discussed the need for labwork and testing and he has refused all of the above. Patient is vomiting and c/o continued abdominal tenderness and nausea. I offered pain medications and anti-nausea meds and patient refused both. Dr. Jalloh came in to assess patient and speak with him about care. He was told he needs an NGT for conservative treatment or surgery for the bowel obstruction. Patient told Dr. Jalloh he will not agree to either option. He adamantly refuses the NGT stating it won't help and he refuses surgery. When asked what does want done (by Dr. Jalloh) the patient states I just want to go home . Dr. Jalloh explained to patient that his situation is not likely to improve without intervention. Patient states he wants to go home regardless. I will call patient's sister (who is not his POA but is his support person and listed next-of-kin) and discuss plan with her further.
--- NOTE | 2020-05-29 09:49 | PC.NURSE ---
Called and discussed situation with patient's sister Pam. She has already talked with the patient this morning. The patient has told her that he will not agree to any care. She has explained the severity of the situation to him and he continues to refuse the NGT, IVFs, testing and surgery. Pam has even discussed hospice with the patient and he stated no hospice . At this point, the sister does not know what else to do. 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 She is hoping the patient will change his mind and agree to treatment but understands the situation.
--- NOTE | 2020-05-29 10:08 | PM.PNGS ---
Progress Note: A&P Assessment and Plan (1) SBO (small bowel obstruction): Code(s): K56.609 - Unspecified intestinal obstruction, unspecified as to partial versus complete obstruction Status: Acute Assessment and Plan: reviewed result of SBS c pt, pt refuses any further intervention at this time, will sign off at this point, please call c additional issues, questions Subjective Subjective Date/Time Seen: 05/29/20 10:08 Pt seen and examined this am. Pt does not want any intervention at this time. Pt had some N/V overnight but cont to refuse NG. Pt refuses any surgical intervention as well and states a desire to go home. Review of Systems Constitutional: Constitutional: Denies anorexia, Denies chills, Reports fatigue, Denies fever(s), Reports lethargy, Reports poor appetite and Reports weakness Cardiovascular: Cardiovascular: Reports no additional cardiovascular complaints Respiratory: Respiratory: Reports no additional respiratory complaints Gastrointestinal: Gastrointestinal: Reports abdominal pain, Reports belching, Reports bloating, Reports nausea and Reports vomiting Exam Const: General: no acute distress, alert, awake and Physically active Orientation/consciousness: patient oriented x3 Resp: Effort & Inspection: normal respiratory effort Auscultation: diminished lung sounds Cardio: Rate: regular rate Rhythm: regular rhythm GI: Inspection: normal to inspection and distended GI Palp: Yes Soft to palpation, No Tenderness to palpation present (GI), No Guarding due to palpation present (GI) and No Rigid due to palpation Other: soft, sl dist, NT Objective Data Vital Signs Vital Signs: Vital Signs - 24 hr 05/28/20 12:00 05/28/20 14:00 05/28/20 16:00 Temperature 36.1 C L Pulse Rate 69 70 64 Respiratory Rate 16 Blood Pressure 137/66 Pulse Oximetry 100 05/28/20 20:00 05/28/20 22:00 05/29/20 00:00 Temperature 37.0 C Pulse Rate 78 75 78 Respiratory Rate 16 Blood Pressure 127/60 Pulse Oximetry 100 05/29/20 04:00 05/29/20 06:00 05/29/20 08:50 Temperature 36.7 C Pulse Rate 80 75 79 Respiratory Rate 16 Blood Pressure 124/59 L Pulse Oximetry 100 Intake/Output Intake/Output: Intake & Output 05/26/20 05/27/20 05/28/20 05/29/20 23:59 23:59 23:59 23:59 Intake Total 1640 0 Output Total 1150 650 Balance 490 -650 Meds/Results Medications: Active Medications Generic Name Dose Route Start Last Admin Trade Name Frefilomena PRN Reason Stop Dose Admin Calcium Carbonate 500 mg 05/28/20 08:00 05/28/20 09:40 Calcium/Vitamin D 500 Mg Tablet PO Not Given BIDWM [facility] Ergocalciferol 50,000 unit 05/29/20 09:00 Ergocalciferol 50,000 Unit Capsule PO WEEKLY NEHEMIAS Dextrose/Sodium Chloride 1,000 mls @ 100 mls/hr 05/27/20 22:00 05/28/20 23:05 Dextrose 5% Sodium Chloride 0.45% IV CONT 0 mls/hr .Q10H NEHEMIAS Infusion Ceftriaxone Sodium/Dextrose 1 gm in 50 mls @ 100 mls/hr 05/27/20 23:00 05/28/20 22:56 Rocephin 1 Gm/D5w 50 Ml IVPB Infused Q24H NEHEMIAS Infusion Ondansetron HCl 4 mg 05/27/20 21:59 05/28/20 19:37 Ondansetron Inj 4 Mg/2 Ml Vial IV PUSH 4 mg Q6H PRN Administration Nausea And Vomiting Pantoprazole Sodium 40 mg 05/28/20 09:00 05/28/20 20:36 Pantoprazole Sodium Iv 40 Mg Vial IV PUSH 40 mg Q12HR NEHEMIAS Administration Phenobarbital 100 mg 05/28/20 09:00 Phenobarbital (*Crx) 100 Mg Tablet PO BID NEHEMIAS Phenobarbital Sodium 100 mg 05/29/20 09:00 Phenobarbital Sodium (*Crx) 130 Mg/Ml Vial IV PUSH DAILY [facility] Radiology Results: ITS Impressions Small Bowel X-Ray 05/28/20 16:04 IMPRESSION: 1. Small bowel obstruction. Labs Labs: Laboratory Results - last 24 hr 05/28/20 05/28/20 05:13 13:14 Potassium 3.3 L Magnesium 1.6 Total T3 0.98 Quality VTE Prophylaxis VTE prophylaxis: mechanical ordered
--- NOTE | 2020-05-29 11:00 | PC.NURSE ---
Discussed care with patient again. Patient continues to be nauseated - vomiting at times. Patient continues to refuse all care. I asked the patient what he would want me to do if his heart stopped beating or he stopped breathing and patient stated I do not want the hospital to intervene in any way. I do not want CPR or any interventions to save my life. I asked the patient if he was aware that he has a treatable condition. He states yes . I don't want anything done. I communicated the patient's wishes to Yair JARRETT and he is going to discuss this further with the patient.
--- NOTE | 2020-05-29 11:35 | PM.DS ---
DS: Admitting Diagnosis Admitting Diagnosis Admitting Diagnosis: Small bowel obstruction DS: Discharge Diagnosis Discharge Diagnosis (1) SBO (small bowel obstruction): Code(s): K56.609 - Unspecified intestinal obstruction, unspecified as to partial versus complete obstruction Status: Acute Assessment and Plan: Found on imaging performed at [place]. General Surgery consulted from [place] ED; appreciate recommendations. Patient now refusing any intervention. Surgery has met with patient and discussed possible outcomes if no intervention; this was reiterated by myself and he states he wants no intervention, wishes to be a full code, and has elected to proceed with comfort care/palliative care. CC discussed with patient the different options in terms of disposition; he will be arranged with palliative care with discharge home Comfort measures ordered Pain control with IV morphine prn, IV tylenol PRN discharge home today with palliative care via [facility] (2) Anemia: Qualifiers: Anemia type: other cause Other causes of anemia: other cause, not classified Qualified Code(s): D64.89 - Other specified anemias Code(s): D64.9 - Anemia, unspecified Status: Inactive Assessment and Plan: Patient has chronic anemia and has B12 injections weekly. He was given 1 u pRBCs at [place]; he is refusing blood draws. Not reporting s/sx of blood loss at this moment. Full work up performed past admission. Stool occult ordered. He never followed up with GI as an outpatient. B12 and Folic acid low end of normal this hospital stay. Will d/c consult to Dr. Morrell given discharge with palliative care. He is refusing consultaions at this time, as well Further care per [facility] (3) Acute hypokalemia: Code(s): E87.6 - Hypokalemia Status: Inactive Assessment and Plan: Patient appears to have chronically low potassium. He is refusing lab draws or potassium supplementation now. Now on comfort measures Further care per [facility] (4) Epilepsy: Code(s): G40.909 - Epilepsy, unspecified, not intractable, without status epilepticus Status: Chronic Assessment and Plan: No acute issues. Apparently his linoleum layer instructed him to change his seizure medication however his neurologist was reluctant to change. He takes phenobarbital and does not appear to have any issues at this time. Does not appear this medication has definitive nephrotoxicity. Discharge with home medications; patient understands complications from SBO and likelihood of recurring n/v and inability to take home medication. Wishes to proceed with comfort measures (5) Chronic kidney disease: Code(s): N18.9 - Chronic kidney disease, unspecified Status: Chronic Assessment and Plan: Possible acute on ckd on arrival to [place], but appeared to have improved and back at his baseline after IVF. Likely prerenal due to poor PO intake/n/v due to SBO. Refusing labs today Comfort measures/palliative care as stated above (6) UTI (urinary tract infection): Code(s): N39.0 - Urinary tract infection, site not specified Status: Acute Assessment and Plan: UA suspicious of UTI; UCx pending. Patient vague if he has urinary symptoms or not. Refusing antibiotics Comfort measures (7) Hypoparathyroidism: Code(s): E20.9 - Hypoparathyroidism, unspecified Status: Acute Assessment and Plan: Patient on vitamin d/calcium; this is on hold due to NPO status Comfort measures DS: Summary Time Spent with Patient Time attestation: Total time spent providing and/or coordinating discharge ser
--- NOTE | 2020-05-29 14:13 | PC.NURSE ---
Patient resting quietly in bed. Denies further abdominal pain. C/o slight nausea but denies further vomiting. Has decided to be a DNR and agrees to comfort measures only. Will call patient's sister to provide an update.
--- NOTE | 2020-05-29 16:24 | PM.IMPN ---
Progress Note: A&P Assessment and Plan (1) SBO (small bowel obstruction): Code(s): K56.609 - Unspecified intestinal obstruction, unspecified as to partial versus complete obstruction Status: Acute Assessment and Plan: Found on imaging performed at [place]. General Surgery consulted from [place] ED; appreciate recommendations. Patient now refusing any intervention. Surgery has met with patient and discussed possible outcomes if no intervention; this was reiterated by myself and he states he wants no intervention, wishes to be a DNR, and has elected to proceed with comfort care/palliative care. CC discussed with patient the different options in terms of disposition; he will be arranged with palliative care with discharge home Comfort measures ordered Pain control with IV morphine prn, IV tylenol PRN discharge tomorrow to [place] with [facility]; covid testing ordered (2) Anemia: Qualifiers: Anemia type: other cause Other causes of anemia: other cause, not classified Qualified Code(s): D64.89 - Other specified anemias Code(s): D64.9 - Anemia, unspecified Status: Inactive Assessment and Plan: Patient has chronic anemia and has B12 injections weekly. He was given 1 u pRBCs at [place]; he is refusing blood draws. Not reporting s/sx of blood loss at this moment. Full work up performed past admission. Stool occult ordered. He never followed up with GI as an outpatient. B12 and Folic acid low end of normal this hospital stay. Will d/c consult to Dr. Morrell given discharge with hospice. He is refusing consultations at this time, as well Further care per [facility] (3) Acute hypokalemia: Code(s): E87.6 - Hypokalemia Status: Inactive Assessment and Plan: Patient appears to have chronically low potassium. He is refusing lab draws or potassium supplementation now. Now on comfort measures Further care per [facility] (4) Epilepsy: Code(s): G40.909 - Epilepsy, unspecified, not intractable, without status epilepticus Status: Chronic Assessment and Plan: No acute issues. Apparently his dining room cashier instructed him to change his seizure medication however his neurologist was reluctant to change. He takes phenobarbital and does not appear to have any issues at this time. Does not appear this medication has definitive nephrotoxicity. Discharge with home medications; patient understands complications from SBO and likelihood of recurring n/v and inability to take home medication. Wishes to proceed with comfort measures (5) Chronic kidney disease: Code(s): N18.9 - Chronic kidney disease, unspecified Status: Chronic Assessment and Plan: Possible acute on ckd on arrival to [place], but appeared to have improved and back at his baseline after IVF. Likely prerenal due to poor PO intake/n/v due to SBO. Refusing labs today Comfort measures/hospice as stated above (6) UTI (urinary tract infection): Code(s): N39.0 - Urinary tract infection, site not specified Status: Acute Assessment and Plan: UA suspicious of UTI; UCx pending. Patient vague if he has urinary symptoms or not. Refusing antibiotics Comfort measures (7) Hypoparathyroidism: Code(s): E20.9 - Hypoparathyroidism, unspecified Status: Acute Assessment and Plan: Patient on vitamin d/calcium; this is on hold due to NPO status Comfort measures Subjective Date/time seen: 05/29/20 16:25 Interval history: Patient is a 65 yo M with history of CKD, epilepsy, hypoparathyroidism, and chronic anemia who is seen in follow up for SBO and Acute on CKD, and hypokalemia. [place]
[2020-05-30 05:05] VITALS: BP 143/70; PULSE 81; RESP 16; TEMP 36.8; O2SAT 98
[2020-05-30] MEDS: PHENobarbitaL sodium (*CRX) 130 MG/ML VIAL 100 MG IV PUSH (08:11)
[2020-05-30 08:15] VITALS: RESP 16; O2SAT 99
[2020-05-30 14:00] VITALS: BP 121/68; PULSE 75; RESP 16; TEMP 37.2; O2SAT 100
--- NOTE | 2020-05-30 16:53 | PM.IMPN ---
Progress Note: A&P Assessment and Plan (1) SBO (small bowel obstruction): Code(s): K56.609 - Unspecified intestinal obstruction, unspecified as to partial versus complete obstruction Status: Acute Assessment and Plan: Found on imaging performed at [facility]. General Surgery consulted from [facility] ED; appreciate recommendations. Patient now refusing any intervention. Surgery has met with patient and discussed possible outcomes if no intervention; this was reiterated by myself and he states he wants no intervention, wishes to be a DNR, and has elected to proceed with comfort care/palliative care. CC discussed with patient the different options in terms of disposition; he will be arranged with palliative care with discharge home Comfort measures ordered Pain control with IV morphine prn, IV tylenol PRN discharge tomorrow to [place] with [facility]; covid testing ordered 05/30/20 16:53 patient with dementia with small-bowel obstruction patient is refusing any medical treatment including NG tube, patient has decided to place himself under hospice care, will waiting for the COVID test before discharging patient to [facility], patient's speech is poor difficult to understand, he clinically stable (2) Anemia: Qualifiers: Anemia type: other cause Other causes of anemia: other cause, not classified Qualified Code(s): D64.89 - Other specified anemias Code(s): D64.9 - Anemia, unspecified Status: Inactive Assessment and Plan: Patient has chronic anemia and has B12 injections weekly. He was given 1 u pRBCs at [facility]; he is refusing blood draws. Not reporting s/sx of blood loss at this moment. Full work up performed past admission. Stool occult ordered. He never followed up with GI as an outpatient. B12 and Folic acid low end of normal this hospital stay. Will d/c consult to Dr. Morrell given discharge with hospice. He is refusing consultations at this time, as well Further care per [facility] (3) Acute hypokalemia: Code(s): E87.6 - Hypokalemia Status: Inactive Assessment and Plan: Patient appears to have chronically low potassium. He is refusing lab draws or potassium supplementation now. Now on comfort measures Further care per [facility] (4) Epilepsy: Code(s): G40.909 - Epilepsy, unspecified, not intractable, without status epilepticus Status: Chronic Assessment and Plan: No acute issues. Apparently his tube bender instructed him to change his seizure medication however his neurologist was reluctant to change. He takes phenobarbital and does not appear to have any issues at this time. Does not appear this medication has definitive nephrotoxicity. Discharge with home medications; patient understands complications from SBO and likelihood of recurring n/v and inability to take home medication. Wishes to proceed with comfort measures (5) Chronic kidney disease: Code(s): N18.9 - Chronic kidney disease, unspecified Status: Chronic Assessment and Plan: Possible acute on ckd on arrival to [place], but appeared to have improved and back at his baseline after IVF. Likely prerenal due to poor PO intake/n/v due to SBO. Refusing labs today Comfort measures/hospice as stated above (6) UTI (urinary tract infection): Code(s): N39.0 - Urinary tract infection, site not specified Status: Acute Assessment and Plan: UA suspicious of UTI; UCx pending. Patient vague if he has urinary symptoms or not. Refusing antibiotics Comfort measures (7) Hypoparathyroidism: Code(s): E20.9 - Hypoparathyroidism, unspecified Status: Acute Assessment and Plan: Patient on vitamin d
[2020-05-30 19:47] LABS: SARS-CoV-2 RNA PCR Negative
[2020-05-31] VITALS: BP 123/65; PULSE 85; RESP 20; TEMP 37.3; O2SAT 100
[2020-05-31 08:09] VITALS: PULSE 88; RESP 20; O2SAT 99
--- NOTE | 2020-05-31 11:12 | PM.DS ---
DS: Admitting Diagnosis Admitting Diagnosis Admitting Diagnosis: Small bowel obstruction DS: Discharge Diagnosis Discharge Diagnosis (1) SBO (small bowel obstruction): Code(s): K56.609 - Unspecified intestinal obstruction, unspecified as to partial versus complete obstruction Status: Acute Assessment and Plan: Found on imaging performed at [facility]. General Surgery consulted from [facility] ED; appreciate recommendations. Patient now refusing any intervention. Surgery has met with patient and discussed possible outcomes if no intervention; this was reiterated by myself and he states he wants no intervention, wishes to be a DNR, and has elected to proceed with comfort care/palliative care. CC discussed with patient the different options in terms of disposition; he will be arranged with palliative care with discharge home Comfort measures ordered Pain control with IV morphine prn, IV tylenol PRN discharge tomorrow to [place] with [facility]; covid testing ordered patient with dementia with small-bowel obstruction patient is refusing any medical treatment including NG tube, patient has decided to place himself under hospice care, will waiting for the COVID test before discharging patient to [facility], patient's speech is poor difficult to understand, he clinically stable today patient COVID test is negative he is clinically stable will discharge him to [facility] will he be admitted under hospice care (2) Anemia: Qualifiers: Anemia type: other cause Other causes of anemia: other cause, not classified Qualified Code(s): D64.89 - Other specified anemias Code(s): D64.9 - Anemia, unspecified Status: Inactive Assessment and Plan: Patient has chronic anemia and has B12 injections weekly. He was given 1 u pRBCs at [facility]; he is refusing blood draws. Not reporting s/sx of blood loss at this moment. Full work up performed past admission. Stool occult ordered. He never followed up with GI as an outpatient. B12 and Folic acid low end of normal this hospital stay. Will d/c consult to Dr. Morrell given discharge with hospice. He is refusing consultations at this time, as well Further care per [facility] (3) Acute hypokalemia: Code(s): E87.6 - Hypokalemia Status: Inactive Assessment and Plan: Patient appears to have chronically low potassium. He is refusing lab draws or potassium supplementation now. Now on comfort measures Further care per [facility] (4) Epilepsy: Code(s): G40.909 - Epilepsy, unspecified, not intractable, without status epilepticus Status: Chronic Assessment and Plan: No acute issues. Apparently his supervisor pipeline instructed him to change his seizure medication however his neurologist was reluctant to change. He takes phenobarbital and does not appear to have any issues at this time. Does not appear this medication has definitive nephrotoxicity. Discharge with home medications; patient understands complications from SBO and likelihood of recurring n/v and inability to take home medication. Wishes to proceed with comfort measures (5) Chronic kidney disease: Code(s): N18.9 - Chronic kidney disease, unspecified Status: Chronic Assessment and Plan: Possible acute on ckd on arrival to [facility], but appeared to have improved and back at his baseline after IVF. Likely prerenal due to poor PO intake/n/v due to SBO. Refusing labs today Comfort measures/hospice as stated above (6) UTI (urinary tract infection): Code(s): N39.0 - Urinary tract infection, site not specified Status: Acute Assessment and Plan: UA suspicious of UTI; UCx pending. Patient vague if he has urinary symptoms or not. Refusing ant
[2020-05-31 13:54] VITALS: BP 130/54; PULSE 80; RESP 18; TEMP 36.8; O2SAT 100
== END 2020-05-31 17:45 | disposition hospice, inpatient (51) | DRG 389 ==
PROVIDERS: Nurse Practitioner; Admitting Provider Internal Medicine; PCP Family Medicine; Visit Provider Physician Assistant
DX: K56.609 Unspecified intestinal obstruction, unspecified as to partial versus complete obstruction (principal); N39.0 Urinary tract infection, site not specified; F03.90 Unspecified dementia, unspecified severity, without behavioral disturbance, psychotic disturbance, mood disturbance, and anxiety; D64.89 Other specified anemias; Z20.828 Contact with and (suspected) exposure to other viral communicable diseases; N18.9 Chronic kidney disease, unspecified; E87.6 Hypokalemia; G40.909 Epilepsy, unspecified, not intractable, without status epilepticus; E20.9 Hypoparathyroidism, unspecified; F17.210 Nicotine dependence, cigarettes, uncomplicated; K21.9 Gastro-esophageal reflux disease without esophagitis; Z66 Do not resuscitate; Z51.5 Encounter for palliative care; Z79.899 Other long term (current) drug therapy
CPT/HCPCS: 36415; 74250; 80048; 80053; 81001; 82306; 82607; 82746; 83605; 83690; 83735; 84132; 84439; 84443; 84480; 85025; 85055; 86140; 87077; 87086; 87088; 87186; 87635; C9113; C9803; J0696; J2405; J2560; J3480; U0003

== ENCOUNTER 2020-12-13 09:51 | Outpatient (CLI) | payer MEDICARE, SELFPAY ==
[2020-12-13 10:03] LABS: Hematocrit 29.5 % (40.0-54.0); Hemoglobin 9.6 g/dL (14.0-18.0); Mean Corpuscular HGB Conc 32.5 g/dL (32.0-36.0); Mean Corpuscular Hemoglobin 30.6 pg (27.0-31.0); Mean Corpuscular Volume 93.9 fL (78.0-102.0); Mean Platelet Volume 10.4 fl (8.7-11.0); Platelet Count Result 100 K/mm3 (150-420); Red Blood Count 3.14 M/mm3 (4.70-6.10); Red Cell Distribution Width 13.1 % (11.6-14.4); White Blood Count 6.1 K/mm3 (4.8-10.8)
[2020-12-13 11:10] LABS: Alanine Aminotransferase 18 U/L (16-63); Albumin Level 4.1 g/dL (3.4-5.0); Alkaline Phosphatase 112 U/L (46-116); Anion Gap 12 mmol/L (8-16); Aspartate Amino Transferase < 10 U/L (15-37); Bilirubin,Total 0.3 mg/dL (0.00-1.00); Blood Urea Nitrogen 28 mg/dL (7-18); Calcium 7.5 mg/dL (8.5-10.1); Carbon Dioxide 26 mmol/L (21-32); Chloride 102 mmol/L (98-108); Estimated Glomerular Filt Rate 24; Free T4 Free Thyroxine 0.74 ng/dL (0.76-1.46); Glucose 78 mg/dL (70-99); Osmolality Calculated 294 mOsm/kg (285-295); Potassium 3.5 mmol/L (3.5-5.1); Sodium 140 mmol/L (136-145); Thyroid Stimulating Hormone 10.77 uIU/mL (0.36-3.74); Total Protein 7.8 g/dL (6.4-8.2)
== END 2020-12-13 09:52 | disposition home or self-care (01) ==
LOC: CHSLAB 09:54
PROVIDERS: PCP Family Medicine; Visit Provider Family Medicine
DX: D64.9 Anemia, unspecified (principal); E20.9 Hypoparathyroidism, unspecified
CPT/HCPCS: 36415; 80053; 84436; 84439; 84443; 85027

== ENCOUNTER 2021-12-21 12:44 | Outpatient (CLI) | payer MEDICARE, SELFPAY ==
[2021-12-21 13:00] LABS: Basophils Absolute Auto 0.04 K/mm3 (0.00-0.10); Basophils Percent Auto 0.7 % (0.0-1.0); Eosinophils Absolute Auto 0.16 K/mm3 (0.02-0.50); Eosinophils Percent Auto 2.8 % (1.0-6.0); Hematocrit 30.9 % (37.0-46.0); Hemoglobin 10.1 g/dL (12.4-15.3); Immature Granulocyte Absolute 0.03 K/mm3 (0.00-0.00); Immature Granulocyte Percent A 0.5 % (0.0-0.0); Immature Platelet Fraction Pct 5.9 % (1.0-7.0); Lymphocytes Absolute Auto 0.88 K/mm3 (1.10-4.50); Lymphocytes Percent Auto 15.1 % (18.0-42.0); Mean Corpuscular HGB Conc 32.7 g/dL (32.0-36.0); Mean Corpuscular Hemoglobin 30.5 pg (27.0-31.0); Mean Corpuscular Volume 93.4 fL (78.0-102.0); Mean Platelet Volume 11.1 fl (8.7-11.0); Monocytes Absolute Auto 0.51 K/mm3 (0.10-0.90); Monocytes Percent Auto 8.8 % (2.0-11.0); Neutrophils Absolute Auto 4.2 K/mm3 (1.7-7.2); Neutrophils Percent Auto 72.1 % (50.0-70.0); Platelet Count Result 99 K/mm3 (150-420); Red Blood Count 3.31 M/mm3 (4.70-6.10); Red Cell Distribution Width 13.5 % (11.6-14.4); White Blood Count 5.8 K/mm3 (4.8-10.8)
[2021-12-21 13:30] LABS: Alanine Aminotransferase 10 U/L (16-63); Albumin Level 3.8 g/dL (3.4-5.0); Alkaline Phosphatase 130 U/L (46-116); Anion Gap 9 mmol/L (8-16); Aspartate Amino Transferase 10 U/L (15-37); Bilirubin,Total 0.4 mg/dL (0.00-1.00); Blood Urea Nitrogen 21 mg/dL (7-18); Calcium 6.2 mg/dL (8.5-10.1); Carbon Dioxide 27 mmol/L (21-32); Chloride 100 mmol/L (98-108); Estimated Glomerular Filt Rate 29; Glucose 93 mg/dL (70-99); Osmolality Calculated 285 mOsm/kg (285-295); Sodium 136 mmol/L (136-145); Total Protein 7.8 g/dL (6.4-8.2)
[2021-12-24 13:12] LABS: Parathyroid Intact 2 pg/mL (14-64)
== END 2021-12-21 12:45 | disposition home or self-care (01) ==
LOC: CHSLAB 12:49
PROVIDERS: PCP Nurse Practitioner Family; Visit Provider Nurse Practitioner Family
DX: E20.9 Hypoparathyroidism, unspecified (principal); I10 Essential (primary) hypertension; G40.909 Epilepsy, unspecified, not intractable, without status epilepticus; R79.89 Other specified abnormal findings of blood chemistry
CPT/HCPCS: 36415; 80053; 80184; 83970; 84443; 85025; 85055

== ENCOUNTER 2022-01-25 15:27 | Outpatient (CLI) | payer MEDICARE, SELFPAY ==
[2022-01-25 16:05] LABS: Alanine Aminotransferase 12 U/L (16-63); Albumin Level 3.7 g/dL (3.4-5.0); Alkaline Phosphatase 122 U/L (46-116); Anion Gap 9 mmol/L (8-16); Aspartate Amino Transferase 11 U/L (15-37); Bilirubin,Total 0.4 mg/dL (0.00-1.00); Blood Urea Nitrogen 17 mg/dL (7-18); Calcium 6.1 mg/dL (8.5-10.1); Carbon Dioxide 28 mmol/L (21-32); Chloride 102 mmol/L (98-108); Estimated Glomerular Filt Rate 27; Glucose 103 mg/dL (70-99); Osmolality Calculated 289 mOsm/kg (285-295); Potassium 3.5 mmol/L (3.5-5.1); Sodium 139 mmol/L (136-145); Total Protein 7.2 g/dL (6.4-8.2)
== END 2022-01-25 15:28 | disposition home or self-care (01) ==
LOC: CHSLAB 15:30
PROVIDERS: PCP Nurse Practitioner Family; Visit Provider Nurse Practitioner Family
DX: E87.6 Hypokalemia (principal)
CPT/HCPCS: 36415; 80053

== ENCOUNTER 2022-07-19 10:08 | Outpatient (CLI) | payer MEDICARE, SELFPAY ==
[2022-07-19 10:25] LABS: Hematocrit 31.7 % (37.0-46.0); Hemoglobin 10.3 g/dL (12.4-15.3); Immature Platelet Fraction Pct 8.7 % (1.0-7.0); Mean Corpuscular HGB Conc 32.5 g/dL (32.0-36.0); Mean Corpuscular Hemoglobin 30.7 pg (27.0-31.0); Mean Corpuscular Volume 94.3 fL (78.0-102.0); Mean Platelet Volume 11.7 fl (8.7-11.0); Platelet Count Result 87 K/mm3 (150-420); Red Blood Count 3.36 M/mm3 (4.70-6.10); Red Cell Distribution Width 13.2 % (11.6-14.4)
[2022-07-19 10:58] LABS: Alanine Aminotransferase 23 U/L (16-63); Albumin Level 4.2 g/dL (3.4-5.0); Alkaline Phosphatase 126 U/L (46-116); Anion Gap 10 mmol/L (8-16); Aspartate Amino Transferase 21 U/L (15-37); Bilirubin,Total 0.3 mg/dL (0.00-1.00); Blood Urea Nitrogen 28 mg/dL (7-18); Carbon Dioxide 28 mmol/L (21-32); Chloride 102 mmol/L (98-108); Estimated Glomerular Filt Rate 26; Glucose 91 mg/dL (70-99); Osmolality Calculated 295 mOsm/kg (285-295); Potassium 3.5 mmol/L (3.5-5.1); Sodium 140 mmol/L (136-145); Total Protein 7.8 g/dL (6.4-8.2)
[2022-07-19 11:07] LABS: Calcium 5.2 mg/dL (8.5-10.1)
== END 2022-07-19 10:09 | disposition home or self-care (01) ==
LOC: CHSLAB 10:10
PROVIDERS: PCP Family Medicine; Visit Provider Family Medicine
DX: I10 Essential (primary) hypertension (principal)
CPT/HCPCS: 36415; 80053; 85027; 85055

== ENCOUNTER 2022-10-12 09:20 | Outpatient (CLI) | payer MEDICARE, SELFPAY ==
[2022-10-12 09:32] LABS: Hematocrit 31.3 % (37.0-46.0); Hemoglobin 10.3 g/dL (12.4-15.3); Mean Corpuscular HGB Conc 32.9 g/dL (32.0-36.0); Mean Corpuscular Volume 94.3 fL (78.0-102.0); Mean Platelet Volume 11.2 fl (8.7-11.0); Platelet Count Result 107 K/mm3 (150-420); Red Blood Count 3.32 M/mm3 (4.70-6.10); Red Cell Distribution Width 13.6 % (11.6-14.4); White Blood Count 6.7 K/mm3 (4.8-10.8)
[2022-10-12 10:16] LABS: Alanine Aminotransferase 20 U/L (16-63); Albumin Level 3.9 g/dL (3.4-5.0); Alkaline Phosphatase 132 U/L (46-116); Anion Gap 12 mmol/L (8-16); Aspartate Amino Transferase 29 U/L (15-37); Bilirubin,Total 0.3 mg/dL (0.00-1.00); Blood Urea Nitrogen 26 mg/dL (7-18); Carbon Dioxide 28 mmol/L (21-32); Chloride 102 mmol/L (98-108); Estimated Glomerular Filt Rate 30; Glucose 92 mg/dL (70-99); Osmolality Calculated 298 mOsm/kg (285-295); Potassium 3.8 mmol/L (3.5-5.1); Sodium 142 mmol/L (136-145); Thyroid Stimulating Hormone 8.16 uIU/mL (0.36-3.74); Total Protein 7.5 g/dL (6.4-8.2)
[2022-10-12 10:39] LABS: Calcium 5.4 mg/dL (8.5-10.1)
[2022-10-12 11:59] LABS: Magnesium 1.6 mg/dL (1.8-2.4)
[2022-10-15 20:34] LABS: Vitamin D 25 Hydroxy 26 ng/mL (30-100)
[2022-10-16 13:17] LABS: Parathyroid Intact 2 pg/mL (14-64)
== END 2022-10-12 09:21 | disposition home or self-care (01) ==
LOC: CHSLAB 09:21
PROVIDERS: PCP Family Medicine; Visit Provider Nurse Practitioner Family
DX: R79.89 Other specified abnormal findings of blood chemistry (principal); N18.9 Chronic kidney disease, unspecified; E20.9 Hypoparathyroidism, unspecified
CPT/HCPCS: 36415; 80053; 82306; 83735; 83970; 84439; 84443; 85027

== ENCOUNTER 2023-01-07 08:46 | Outpatient (CLI) | payer MEDICARE, SELFPAY ==
[2023-01-07 09:48] LABS: Alanine Aminotransferase 14 U/L (16-63); Albumin Level 3.8 g/dL (3.4-5.0); Alkaline Phosphatase 147 U/L (46-116); Anion Gap 13 mmol/L (8-16); Aspartate Amino Transferase < 10 U/L (15-37); Bilirubin,Total 0.4 mg/dL (0.00-1.00); Blood Urea Nitrogen 25 mg/dL (7-18); Carbon Dioxide 27 mmol/L (21-32); Chloride 101 mmol/L (98-108); Estimated Glomerular Filt Rate 29; Glucose 100 mg/dL (70-99); Osmolality Calculated 296 mOsm/kg (285-295); Potassium 3.1 mmol/L (3.5-5.1); Sodium 141 mmol/L (136-145); Total Protein 7.5 g/dL (6.4-8.2)
[2023-01-07 09:56] LABS: Calcium 5.5 mg/dL (8.5-10.1)
[2023-01-11 14:04] LABS: Vitamin D 25 Hydroxy 32 ng/mL (30-100)
== END 2023-01-07 08:47 | disposition home or self-care (01) ==
LOC: CHSLAB 08:48
PROVIDERS: PCP Family Medicine; Visit Provider Nurse Practitioner Family
DX: N18.9 Chronic kidney disease, unspecified (principal); E55.9 Vitamin D deficiency, unspecified; G40.909 Epilepsy, unspecified, not intractable, without status epilepticus; E83.51 Hypocalcemia
CPT/HCPCS: 36415; 80053; 80184; 82306

== ENCOUNTER 2023-04-04 10:10 | Outpatient (CLI) | payer MEDICARE, MEDICAID, SELFPAY ==
[2023-04-04 11:01] LABS: Calcium 5.5 mg/dL (8.5-10.1)
== END 2023-04-04 10:11 | disposition home or self-care (01) ==
LOC: CHSLAB 10:12
PROVIDERS: PCP Family Medicine; Visit Provider Nurse Practitioner Family
DX: G40.909 Epilepsy, unspecified, not intractable, without status epilepticus (principal); E83.51 Hypocalcemia
CPT/HCPCS: 36415; 80184; 82310

== ENCOUNTER 2023-04-15 13:34 | Emergency (ER) | payer MEDICARE, MEDICAID, SELFPAY ==
[2023-04-15] VITALS (7 sets, daily range): BP systolic 111–121; BP diastolic 60–65; PULSE 74–82; RESP 16–18; TEMP 36.7; O2SAT 97–100
--- NOTE | ~2023-04-15 | CT_ITS ---
EXAMINATION: CT brain wo con DATE: 04/15/2023 14:07 INDICATION: TECHNIQUE: Computed tomography (CT) of the head was performed without intravenous contrast. The dose- length product was 681.00 mGy-cm. Automated exposure control and iterative reconstruction technique w ere employed. COMPARISON: CT dated 04/04/2020 FINDINGS: Stable appearance to calcifications of the basal ganglia, thalami, ring radiata and cereb ellum. Brain parenchymal volume is normal for age. There are scattered mild periventricular and subco rtical white matter changes, most likely related to small vessel ischemic disease (microangiopathy). Paranasal sinuses and mastoids are pneumatized. No depressed skull fractures. No acute infarction, he morrhage, mass or mass effect. IMPRESSION: 1. No acute intracranial abnormality. No significant change from prior examination allowing for diffe rences of technique. Reviewed, dictated and finalized at location L. IMPRESSION: 1. No acute intracranial abnormality. No significant change from prior examinat ion allowing for differences of technique.
--- NOTE | ~2023-04-15 | XR_ITS ---
EXAMINATION: XR hip LT 2V w AP pelvis DATE: 04/15/2023 14:14 INDICATION: Left hip pain. Fall. TECHNIQUE: An anteroposterior view of the pelvis on 2 radiographs and 2 views of left hip were obtain ed. COMPARISON: None. FINDINGS: Lumbar levocurvature is noted. There is a comminuted intertrochanteric fracture of proximal left femur. The main distal fracture fragment demonstrates impaction, 16 degrees varus angulation, 1 2 mm posterior displacement, and posterior angulation. There is mild osteoarthritis of the hips. IMPRESSION: 1. Comminuted intertrochanteric fracture of proximal left femur. 2. Mild osteoarthritis of the hips. Reviewed, dictated and finalized at location A.
--- NOTE | 2023-04-15 13:43 | ED.LOWEXIN ---
HPI - Extremity Injury (Lower) General Chief Complaint: Extremity Injury, Lower Stated Complaint: left hip pain Time Seen by Provider: 04/15/23 13:42 Source: patient Mode of arrival: ambulatory Limitations: no limitations History of Present Illness HPI Narrative: 68-year-old male smoker with a history of cognitive impairment, seizure disorder, CKD, hypercalcemia presented to the ER via EMS after a fall. -- Patient lost his balance and fell from standing position. No head injury. No neck or spine injury. No loss of consciousness. -- Left hip pain with left lower extremity shortening. No other obvious injuries noted. MD complaint: hip injury Onset (ago): minute(s) ( 40 minutes ago) Type of Injury: blunt Place: home Severity: severe Relieving factors: immobilization Exacerbating factors: movement Context: fall Other symptoms: none Related Data Home Medications Medication Instructions Recorded Confirmed mecobalamin (vitamin B12) 1,000 1,000 mcg sublingual DAILY 04/15/23 04/15/23 mcg disintegrating tablet,sublingual omeprazole 20 mg capsule,delayed 20 mg PO DAILY 04/15/23 04/15/23 release Allergies Allergy/AdvReac Type Severity Reaction Status Date / Time ciprofloxacin Allergy Intermediate Rash Verified 04/15/23 13:45 clavulanic acid [Augmentin] Allergy Intermediate Rash Verified 04/15/23 13:45 doxorubicin Allergy Intermediate Rash Verified 04/15/23 13:45 amoxicillin [Augmentin] Allergy Mild Rash Verified 04/15/23 13:45 erythromycin base Allergy Mild Rash Verified 04/15/23 13:45 minocycline Allergy Mild Rash Verified 04/15/23 13:45 tetracycline Allergy Mild Rash Verified 04/15/23 13:45 [From Achromycin] phenobarbital Allergy Fever Verified 04/15/23 13:45 Sulfonamides Allergy Intermediate Rash Uncoded 04/11/23 12:48 Dilantin-125 Allergy Mild Rash Uncoded 04/11/23 12:48 oramycin Allergy Mild Rash Uncoded 04/11/23 12:48 Review of Systems Review of Systems: All systems reviewed & are unremarkable except as noted in HPI and below Constitutional: Constitutional: Reports as per HPI and Reports no additional constitutional complaints Eyes: Eyes: Reports as per HPI and Reports no additional eye complaints ENT: Reports system reviewed and no additional complaints, except as documented and Reports as per HPI Comments: hard of hearing Cardiovascular: Cardiovascular: Reports as per HPI and Reports no additional cardiovascular complaints Respiratory: Respiratory: Reports as per HPI and Reports no additional respiratory complaints Gastrointestinal: Gastrointestinal: Reports as per HPI and Reports no additional gastrointestinal complaints Genitourinary: Genitourinary: Reports urinary incontinence Musculoskeletal: Musculoskeletal: Reports no additional musculoskeletal complaints and Reports as per HPI Comments: left hip pain Integumentary/Breasts: Skin/Breast: Reports system reviewed and no additional complaints, except as docu and Reports as per HPI Neurologic: Reports system reviewed and no additional complaints, except as documented and Reports as per HPI Psychiatric: Psychiatric: Reports as per HPI Endocrine: Endocrine: Reports no additional endocrine complaints and Reports as per HPI Hematologic/Lymphatic: Hematologic/Lymphatic: Reports no additional hematologic/lymphatic complaints and Reports as per HPI Allergic/Immunologic: Allergic/Immunologic: Reports no additional allergic/immunologic complaints and Reports as per HPI PMFSH Past Medical History Medical History Chronic kidney disease the patient tells me he has not been seeing a specialist. Elevated TSH Epilepsy GERD (gastroesophageal reflux disease) Hypercalcemia Hypoparathyroidism Seizure disorder Tongue abnormality the patient was tongue tied until his frenulum was clipped Surgical History Surgical History
[2023-04-15] MEDS: HYDROmorphone HCL INJ (*CRX) 2 MG/ML VIAL 0.5 MG IM (14:15)
[2023-04-15] MEDS: ONDANSETRON HCL ODT 4 MG TABLET PO (14:15)
--- NOTE | 2023-04-15 14:16 | ECG_ITS ---
Measurements Intervals [place] Rate: 74 P: 47 OR: 217 QRS: 14 QRSD: 94 T: 27 QT: 381 QTc: 424 Interpretive Statements SINUS RHYTHM WITH FIRST DEGREE AV BLOCK INCOMPLETE RIGHT BUNDLE BRANCH BLOCK BORDERLINE ST-T WAVE ABNORMALITY- INF/LAT LEADS BASELINE ARTIFACT- I, II, III, AVR, AVL, AVF, V4-V6 BORDERLINE ECG COMPARED TO ECG 05/27/2020 15:43:47 FIRST DEGREE AV BLOCK NOW PRESENT Electronically Signed On 04-15-2023 16:54:17 CDT by Mitul May D.O.
[2023-04-15 14:48] LABS: Basophils Absolute Auto 0.04 K/mm3 (0.00-0.10); Basophils Percent Auto 0.3 % (0.0-1.0); Eosinophils Absolute Auto 0.02 K/mm3 (0.02-0.50); Eosinophils Percent Auto 0.2 % (1.0-6.0); Hemoglobin 9.2 g/dL (12.4-15.3); Immature Granulocyte Absolute 0.07 K/mm3 (0.00-0.00); Immature Granulocyte Percent A 0.6 % (0.0-0.0); Immature Platelet Fraction Pct 9.3 % (1.0-7.0); Lymphocytes Absolute Auto 0.38 K/mm3 (1.10-4.50); Lymphocytes Percent Auto 3.2 % (18.0-42.0); Mean Corpuscular HGB Conc 32.9 g/dL (32.0-36.0); Mean Corpuscular Volume 94.3 fL (78.0-102.0); Mean Platelet Volume 12.5 fl (8.7-11.0); Monocytes Absolute Auto 0.55 K/mm3 (0.10-0.90); Monocytes Percent Auto 4.6 % (2.0-11.0); Neutrophils Percent Auto 91.1 % (50.0-70.0); Platelet Count Result 84 K/mm3 (150-420); Red Blood Count 2.97 M/mm3 (4.70-6.10); Red Cell Distribution Width 13.2 % (11.6-14.4)
[2023-04-15] MEDS: LACTATED RINGERS 1,000 ML 150 ML IV CONT (14:51)
[2023-04-15 15:01] LABS: Alanine Aminotransferase 10 U/L (16-63); Albumin Level 3.4 g/dL (3.4-5.0); Alkaline Phosphatase 116 U/L (46-116); Anion Gap 13 mmol/L (8-16); Aspartate Amino Transferase 13 U/L (15-37); Bilirubin,Total 0.4 mg/dL (0.00-1.00); Blood Urea Nitrogen 22 mg/dL (7-18); Carbon Dioxide 24 mmol/L (21-32); Chloride 105 mmol/L (98-108); Estimated CRCL calculation 29 ml/min; Estimated Glomerular Filt Rate 30; Glucose 116 mg/dL (70-99); Osmolality Calculated 298 mOsm/kg (285-295); Potassium 2.9 mmol/L (3.5-5.1); Sodium 142 mmol/L (136-145)
[2023-04-15 15:04] LABS: INR 1.1; Partial Thromboplastin Time 32.9 SEC (23.90-30.70); Prothrombin Time 11.8 Seconds (9.50-12.10)
[2023-04-15 15:24] LABS: Troponin I 5.5 ng/L (0.00-60.4)
--- NOTE | 2023-04-15 15:28 | PC.NURSE ---
PT AND SISTER ARE UPDATED AT THIS TIME. PT DENIES ANY NEEDS OR COMPLAINTS AT THIS TIME. NAD NOTED. PT IS AWAITING RETURN CALL FROM DR SMITH AT THIS TIME. WILL CONTINUE TO MONITOR. ERP UPDATED SISTER.
--- NOTE | 2023-04-15 16:54 | PC.NURSE ---
PT AND SISTER ARE UPDATED AT THIS TIME. NO NEEDS OR COMPLAINTS. PT IS CALM AND RESTING. WILL CONTINUE TO MONITOR.
[2023-04-15 17:00] LABS: SARS-CoV-2 Ag Negative (Negative)
--- NOTE | 2023-04-15 17:00 | PC.NURSE ---
PT LAST ATE BREAKFAST AT 0700 THIS AM AND HAD CEREAL. NOTHING TO EAT SINCE.
--- NOTE | 2023-04-15 17:30 | PC.NURSE ---
1715 QUOTE CLERK ASSIGNS ROOM [id number] ATTEMPTED TO CALL REPORT, STAFF UNAWARE OF PT, AWAITING RETURN CALL.
--- NOTE | 2023-04-15 17:48 | PC.NURSE ---
SISTER SEVERO REPORTS PT IS A DNR, SHE WILL BRING PAPERWORK TO [facility]. [phone].
== END 2023-04-15 18:36 | disposition short-term general hospital (02) ==
PROVIDERS: Emergency Provider Internal Medicine Critical Care Medicine; PCP Nurse Practitioner Family
DX: S72.092A Other fracture of head and neck of left femur, initial encounter for closed fracture (principal); N18.9 Chronic kidney disease, unspecified; F17.210 Nicotine dependence, cigarettes, uncomplicated; Z79.899 Other long term (current) drug therapy; Z20.822 Contact with and (suspected) exposure to COVID-19; W18.30XA Fall on same level, unspecified, initial encounter; Y92.009 Unspecified place in unspecified non-institutional (private) residence as the place of occurrence of the external cause
CPT/HCPCS: 36415; 70450; 73502; 80053; 84484; 85025; 85055; 85610; 85730; 87426; 93005; 96360; 96361; 96372; 99285; A9270; C9803; J1170; J7120

== ENCOUNTER 2023-04-15 19:16 | Inpatient (IN) | payer MEDICARE, MEDICAID, SELFPAY ==
--- NOTE | ~2023-04-15 | XR_ITS ---
XR surgery orthopedic Left hip gamma nail placement TECHNIQUE: Fluoroscopy used during Left hip gamma nail placement performed by [Venkata justice MD] on 04/16/2023. 1 minute 34 seconds fluoroscopy with 4 images captured. FINDINGS: Correlate with procedure note. IMPRESSION: Fluoroscopy used during Left hip gamma nail placement. Reviewed, dictated and finalized at location L.
--- NOTE | 2023-04-15 20:17 | ADMGEN ---
This patient, Phong Lee, was admitted to Medical Room 342-01. Patient/family oriented to hospital policies and general routines including ID bracelet, bed and alarms, visiting hours, pain management, procedures, bathroom and other care routines, personal items, smoking policy, room service/diet, and visiting hours. Information on how to activate the Rapid Response Team has been discussed. Patient/Family are encouraged to report perceived risks to care and to ask questions if they do not understand what they are told or what they should do.
[2023-04-15 20:41] VITALS: BP 121/60; PULSE 86; RESP 16; TEMP 37; O2SAT 99
--- NOTE | 2023-04-15 21:23 | PM.IMHP ---
H&P: HPI History of Present Illness Date/Time: 04/15/23 21:30 Chief Complaint: Left hip fracture. Narrative: This is a pleasant 68-year-old male with intellectual disability, history of seizures, chronic kidney disease, and hypoparathyroidism who is being directly admitted to the medical floor from the emergency department at [facility] where he was found to have a left hip fracture. The patient provides the following history; sister Pam provides additional information with the patient's permission. The patient does have balance issues and has had falls in the past but not for quite some time. He does not use any assistive devices while walking. Today he went for a walk around his apartment building when he got tripped up in his feet and fell forward and towards the left, landing on his left side before his glasses hit the cement. Malu saw him fall and called 911. He was brought to the ED where he was found to have an inter trochanteric fracture and he was transferred to [facility] for orthopedic consultation. He denies loss of consciousness and sustained no other injuries in the fall. His pain is pretty well controlled as long as he does not move. At the time my evaluation he is in good spirits and has no complaints. Review of Systems Review of Systems: Twelve systems were reviewed. No fever, chills, or sweats. No recent cold or flu symptoms. He has not had a seizure in over 10 years. No syncope or near syncope. He denies exertional chest pain shortness a breath. No orthopnea, paroxysmal nocturnal dyspnea, or lower extremity edema. Appetite is good. No nausea, vomiting, or diarrhea. Except as documented, all other systems were reviewed and are negative. [facility] Past Medical History Medical History (Updated 04/16/23 @ 15:53 by Jeanine Mosher PA-C) Chronic anemia Chronic kidney disease, stage 4 (severe) Epilepsy GERD (gastroesophageal reflux disease) Hypercalcemia Hypoparathyroidism Seizure disorder Tongue abnormality the patient was tongue tied until his frenulum was clipped Surgical History Surgical History (Updated 04/16/23 @ 15:53 by Jeanine Mosher PA-C) History of appendectomy (2009) History of bilateral cataract extraction History of hernia repair 1977 & 1961 History of repair of congenital cleft palate Family History Family History Mother Diabetes mellitus Renal failure Hypertension Father Alzheimer's dementia Other Family history of type 2 diabetes mellitus Social History Social History (Updated 04/16/23 @ 15:54 by Jeanine Mosher PA-C) Social History: Surrogate medical decision maker: Pam Perez, sister. Code status: Full code. Smoking packs per day: 0.25 Smoking cigarettes per day: 5.0 Years smoked: 40 Smoking pack-years: 10.00 Smoking status: Current every day smoker Tobacco type: cigarettes Alcohol intake: never Substance use: never Lack of Transportation: No Lack of Food: Never True Current Housing: I Have Housing Concerned About Future Housing: No Difficulty Paying Gas/Electric Bills: No Difficulty Paying for Meds: No Currently Unemployed: No Education: High School Diploma/GED Difficulty w/ Childcare or Family Care: No Living arrangements: alone Additional living arrangements comments: The patient lives alone in his own apartment. Occupation/Education: unemployed Spiritual care concerns: No Meds Home Medications and Allergies Home Medications Medication Instructions Recorded Confirmed Type calcium carbonate 600 mg-vitamin 1,200 tablet PO DAILY 04/15/23 04/15/23 History D3 5 mcg (200 unit) tablet mecobalamin (vitamin B12) 1,000 1,000 mcg sublingual DAILY 04/15/23 04/15/23 History mcg disintegrating tablet,sublingual mv-mn-folic 200 mcg-vit K 15 1 cap PO DAILY 04/15/23 04/15/23 History mcg-lutein 5 mg-zeaxanthin 1 mg cap
[2023-04-16] VITALS (11 sets, daily range): BP systolic 130–157; BP diastolic 59–75; PULSE 76–97; RESP 12–18; TEMP 36.4–38.8; O2SAT 97–100
[2023-04-16] MEDS: CALCIUM GLUC 1,000 MG/NS 50 ML 1,000 MG/50 ML BAG 100 MG IVPB (00:47)
[2023-04-16] MEDS: PHENobarbital (*CRX) 100 MG TABLET PO ×2 (00:50→20:08)
[2023-04-16 00:59] LABS: Hemoglobin 8.2 g/dL (14.0-18.0); Immature Platelet Fraction Pct 12.1 % (0.9-11.2); Mean Corpuscular HGB Conc 32.8 g/dl (32-36); Mean Corpuscular Hemoglobin 31.3 pg (26-34); Mean Corpuscular Volume 95.4 fl (80-100); Mean Platelet Volume 12.1 fl (7.4-10.4); Platelet Count Result 70 k/mm3 (150-375); Red Blood Count 2.62 M/mm3 (4.6-6.20); Red Cell Distribution Width 13.3 % (11.5-14.5); White Blood Count 6.4 K/mm3 (4.5-10.0)
[2023-04-16 01:10] LABS: Anion Gap 4 mmol/L (8-16); Blood Urea Nitrogen 22 mg/dL (9-20); Carbon Dioxide 28 mmol/L (22-30); Chloride 105 mmol/L (98-107); Estimated Glomerular Filt Rate 36; Glucose 106 mg/dL (65-110); Magnesium 1.6 mg/dL (1.6-2.3); Sodium 137 mmol/L (137-145)
--- NOTE | 2023-04-16 09:47 | PC.NURSE ---
Sister at bedside having questions for Dr Zavala. Band Lining Bander called his office and spoke with clinic receptionist. She stated he will be up within the next hour to speak with patient and sister to answer questions.
--- NOTE | 2023-04-16 10:51 | PM.CNOR ---
Assessment and Plan Assessment and plan (1) Intertrochanteric fracture of left femur: Code(s): S72.142A - Displaced intertrochanteric fracture of left femur, initial encounter for closed fracture Status: Acute (2) Vitamin D deficiency due to chronic kidney disease: Code(s): E55.9 - Vitamin D deficiency, unspecified; N18.9 - Chronic kidney disease, unspecified Status: Acute (3) Chronic kidney disease, stage 4 (severe): Code(s): N18.4 - Chronic kidney disease, stage 4 (severe) Status: Acute (4) Fall from ground level: Code(s): W18.30XA - Fall on same level, unspecified, initial encounter Status: Acute (5) Chronic anemia: Code(s): D64.9 - Anemia, unspecified Status: Acute (6) Seizure disorder: Code(s): G40.909 - Epilepsy, unspecified, not intractable, without status epilepticus Status: Acute Plan Displaced intertrochanteric fracture of the left hip. Unstable injury will benefit from internal fixation. I reviewed the history and treatment plan with the patient's power of trademark attorney, his sister. Some increased risk due to his kidney disease, as well as bone mineral deficiency. He has intellectual disability but shows reasonable insight. Anticipate requiring a walker or cane in the future as he is reportedly unstable in his gait pattern. Acute rehab stay or swing bed anticipated. Proceed with ORIF with cephalomedullary nail left hip (gamma nail). We discussed the risks, benefits, and alternatives to surgery. History of Present Illness HPI Consult date: 04/16/23 Chief complaint: Lt. Hip Fracture Narrative: Patient complains of acute hip pain. Fell from standing height. No previous hip pain. Comfortable at rest. No numbness, tingling, or other associated symptoms. Patient has intellectual disability; history obtained from the sister. No previous fractures. He does have a history of parathyroid disease and low calcium. Review of Systems Review of Systems: Denies loss of consciousness. All systems reviewed & are unremarkable except as noted in HPI and below [facility] Past Medical History Medical History (Updated 04/16/23 @ 00:01 by Jeanine Mosher PA-C) Chronic anemia Chronic kidney disease the patient tells me he has not been seeing a specialist. Chronic kidney disease, stage 4 (severe) Elevated TSH Epilepsy GERD (gastroesophageal reflux disease) Hypercalcemia Hypoparathyroidism Hypoparathyroidism Seizure disorder Seizure disorder Tongue abnormality the patient was tongue tied until his frenulum was clipped Surgical History Surgical History H/O cataract extraction History of appendectomy 2009 History of hernia repair 1977 & 1961 History of repair of congenital cleft palate Family History Family History (Updated 04/15/23 @ 20:08 by Pam Ventura RN) Mother Diabetes mellitus Renal failure Hypertension Father Alzheimer's dementia Other Family history of type 2 diabetes mellitus Social History Social History Social History: the patient lives home alone. He is on disability. He told me that his sister is the power trademark attorney but she tells me she is not power trademark attorney in the patient does not have 1. The patient tells me that he wants to be a full code. He does not want a power trademark attorney. He is single no children he is mentally challenged. No alcohol marijuana or illicit drugs. He said he does occasionally have cigarette. Smoking packs per day: 6 Smoking cigarettes per day: 120.0 Years smoked: 40 Smoking pack-years: 240.00 Smoking status: Current every day smoker Tobacco type: cigarettes Additional smoking assessment comments: 15 pack year history Alcohol intake: never Substance use: never Lack of Transportation: No Lack of Food: Never True Current Housing: [facility] [place]
--- NOTE | 2023-04-16 12:46 | PM.IMPN ---
Progress Note: A&P Assessment and Plan (1) Intertrochanteric fracture of left femur: Code(s): S72.142A - Displaced intertrochanteric fracture of left femur, initial encounter for closed fracture Status: Acute Assessment and Plan: Patient going to the operating room at 3:30 a.m. this afternoon for enter operative repair with gamma nail. Defer PT OT to orthopedics (2) Fall from ground level: Code(s): W18.30XA - Fall on same level, unspecified, initial encounter Status: Acute (3) Chronic kidney disease, stage 4 (severe): Code(s): N18.4 - Chronic kidney disease, stage 4 (severe) Status: Acute Assessment and Plan: GFR upon admission was 36 which is better than patient's usual 18-30 (4) Chronic anemia: Code(s): D64.9 - Anemia, unspecified Status: Acute Assessment and Plan: Related to CKD stage 4, no signs of bleeding. 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 He was seen by Orthopedics today with plan for operative repair with gamma nail and hopeful placement at [place] swing bed when cleared by Orthopedics. Besides pain in the left hip patient has no other complaints. Review of Systems Review of Systems: All systems reviewed & are unremarkable except as noted in HPI and below Exam Narrative: General: Well-developed male in the semi-Sweeney position in bed in no acute distress. HEENT: Small abrasion on the bridge of the left side of the nose where his glasses hit the ground. Mild periorbital edema. pERRL, EOMI. Sclera anicteric. Oral mucosa moist. Neck: Supple. No JVD Respiratory: Lungs are clear to auscultation bilaterally. Cardiovascular: Regular rate and rhythm with S1-S2. Gastrointestinal: Abdomen is soft, nontender, and nondistended with positive bowel sounds. Skin: Warm and dry. Small abrasion on the heel of the right palm. Extremities: No cyanosis, clubbing, or edema. Radial and pedal pulses intact. Left hip painful to touch or painful to movement of the left leg, partially inwardly turn. Neurological: Alert. Cranial nerves 2-12 are grossly intact. No gross focal deficits to casual conversation. Psychiatric: Pleasant and cooperative. Appropriate mood. Objective Data Vital Signs Vital Signs: Vital Signs - 24 hr 04/15/23 20:26 04/15/23 20:41 04/16/23 04:52 Temperature 37.0 C 36.9 C Pulse Rate 86 76 Respiratory Rate 16 16 Blood Pressure 121/60 130/59 L Pulse Oximetry 99 98 Oxygen Delivery Room Air 04/16/23 08:00 Temperature Pulse Rate Respiratory Rate Blood Pressure Pulse Oximetry Oxygen Delivery Room Air Intake/Output Intake/Output: Intake & Output 04/13/23 04/14/23 04/15/23 04/16/23 23:59 23:59 23:59 23:59 Output Total 575 Balance -575 Meds/Results Medications: Active Medications Generic Name Dose Route Start Last Admin Trade Name Freq PRN Reason Stop Dose Admin Acetaminophen 650 mg 04/15/23 20:47 Acetaminophen 325 Mg Tablet PO Q4H PRN Mild Pain (1-3) or Fever Hydrocodone Bitart/Acetaminophen 1 tab 04/15/23 20:47 Hydrocodone/Acetaminophen (*Crx) 5-325 Mg Tablet PO Q4H PRN Moderate Pain (4-6) Calcium Carbonate 1,000 mg 04/16/23 09:00 04/16/23 09:58 Calcium/Vitamin D 500 Mg Tablet PO 05/16/23 08:59 Not Given DAILY NEHEMIAS Cyanocobalamin 1,000 mcg 04/16/23 09:00 04/16/23 09:58
--- NOTE | 2023-04-16 15:00 | PC.NURSE ---
Patient off the unit to surgery
[2023-04-16] MEDS: TRANEXAMIC ACID 1,000MG/ISO100 1,000 MG/100 ML BAG 200 MG IVPB (15:20)
[2023-04-16] MEDS: LACTATED RINGERS 1,000 ML 30 ML IV CONT (15:20)
--- NOTE | 2023-04-16 15:22 | WPDANESEPPF ---
Anes - Initial Pre Proc Eval Procedure: Operation Date: 04/16/23 15:30 Proposed Procedures p Left Hip Gamma Nail - Venkata Zavala MD Date/Time: 04/16/23 15:22 Surgeon: Jeny Montes DO Pre Op Diagnosis: Lt. Hip Fracture Patient Data Age: 68 Gender: M Height: Weight: 69.6 kg Last Vital Signs Temp 38.8 C H 04/16/23 15:15 Pulse 90 04/16/23 15:15 Resp 16 04/16/23 15:15 BP 135/62 04/16/23 15:15 Pulse Ox 99 04/16/23 15:15 O2 Del Method Room Air 04/16/23 15:15 Allergies Allergy/AdvReac Type Severity Reaction Status Date / Time ciprofloxacin Allergy Intermediate Rash Verified 04/15/23 13:45 clavulanic acid [Augmentin] Allergy Intermediate Rash Verified 04/15/23 20:07 doxorubicin Allergy Intermediate Rash Verified 04/15/23 20:07 Sulfa (Sulfonamide Allergy Intermediate Rash Verified 04/16/23 11:21 Antibiotics) amoxicillin [Augmentin] Allergy Mild Rash Verified 04/15/23 20:07 erythromycin base Allergy Mild Rash Verified 04/15/23 20:07 minocycline Allergy Mild Rash Verified 04/15/23 20:07 phenytoin [From Dilantin] Allergy Mild Rash Verified 04/16/23 11:21 tetracycline Allergy Mild Rash Verified 04/15/23 20:07 [From Achromycin] phenobarbital AdvReac Nausea/vomi Verified 04/16/23 11:23 ting oramycin Allergy Mild Rash Uncoded 04/15/23 20:07 Home Medications Medication Instructions Recorded Confirmed Type calcium carbonate 600 mg-vitamin 1,200 tablet PO DAILY 04/15/23 04/15/23 History D3 5 mcg (200 unit) tablet mecobalamin (vitamin B12) 1,000 1,000 mcg sublingual DAILY 04/15/23 04/15/23 History mcg disintegrating tablet,sublingual mv-mn-folic 200 mcg-vit K 15 1 cap PO DAILY 04/15/23 04/15/23 History mcg-lutein 5 mg-zeaxanthin 1 mg capsule (PreserVision AREDS 2 Plus Multivit) omeprazole 20 mg capsule,delayed 20 mg PO DAILY 04/15/23 04/15/23 History release phenobarbital 100 mg tablet 100 mg PO HS 04/15/23 04/15/23 History potassium chloride 20 mEq 20 meq PO DAILY 04/15/23 04/15/23 History tablet,extended release(part/cryst) Laboratory Tests 04/16/23 04/16/23 00:45 11:34 WBC 6.4 K/mm3 (4.5-10.0) RBC 2.62 L M/mm3 (4.6-6.20) Hgb 8.2 L g/dL (14.0-18.0) Hct 25.0 L % (42.0-52.0) MCV 95.4 fl (80-100) MCH 31.3 pg (26-34) MCHC 32.8 g/dl (32-36) RDW 13.3 % (11.5-14.5) Plt Count 70 L k/mm3 (150-375) MPV 12.1 H fl (7.4-10.4) % Immature Plt Fraction 12.1 H % (0.9-11.2) Sodium 137 mmol/L (137-145) Potassium 3.0 L mmol/L (3.4-5.0) Chloride 105 mmol/L (98-107) Carbon Dioxide 28 mmol/L (22-30) Anion Gap 4 L mmol/L (8-16) BUN 22 H mg/dL (9-20) Creatinine 1.90 H mg/dL (0.7-1.3) Estim Creat Clear Calc Not Reportable Estimated GFR 36 L (59 - ) Glucose 106 mg/dL (65-110) Calcium 5.0 L mg/dL (8.4-10.2) Magnesium 1.6 mg/dL (1.6-2.3) Blood Type O Positive Antibody Screen Negative Patient hx anesthesia problems: none Family hx anesthesia problems: none Results Review: All pre-operative results and documents have been reviewed as part of the pre-operative evaluation. [facility] Past Medical History Medical History Chronic anemia Chronic kidney disease the patient tells me he has not been seeing a specialist. Chronic kidney disease, stage 4 (severe) Elevated TSH Epilepsy GERD (gastroesophageal reflux disease) Hypercalcemia Hypoparathyroidism Hypoparathyroidism Seizure disorder Seizure disorder Tongue abnormality the patient was tongue tied until his frenulum was clipped Surgical History Surgical History H/O cataract extraction History of appendectomy 2009 History of hernia repair 1977 & 1961 History of repa
--- NOTE | 2023-04-16 16:06 | P.PNAN_ITS ---
Anes - Eval Final PreProcedure Day of Procedure 04/16/23 16:06 Patient weight: overweight Heart: regular rate and rhythm Lungs: clear to auscultation Airway: Mallampati scale class II Neurological: alert and oriented Last oral intake: >/= 8 hours ASA classification: III Emergent: no Anesthetic plan: proceed Anesthesia type and monitoring: general LMA and standard monitoring Results Review: All pre-operative results and documents have been reviewed as part of the pre- operative evaluation. Informed Consent: The patient's anesthetic plan and its attendant risks and benefits were discussed with the patient/family/POA. Questions were solicited and answers provided to the satisfaction of the patient/family/POA.
--- NOTE | 2023-04-16 16:07 | WPDHPUPDATE1 ---
History and Physical Update Update Date/Time: 04/16/23 16:07 History and Physical has been reviewed, including an updated exam of the patient. There are NO changes in the patient's condition. Risks, benefits, and alternatives have been discussed and questions answered. Patient agrees to proceed with procedure.
--- NOTE | 2023-04-16 16:38 | W.PM.PROC2 ---
Procedure Note - Detailed Date of Procedure 04/16/23 Pre-op Diagnosis Lt. Hip intertrochanteric Fracture Post-op Diagnosis Same Procedure Performed ORIF with cephalomedullary nail, left hip intertrochanteric fracture. Surgeon Venkata Zavala MD Anesthesia General Description of Procedure The patient was given a general anesthetic, then carefully placed in fracture table. Sterile prep and drape performed in the usual fashion. Sterile curtain was used. Gentle traction was utilized to reduce the fracture. Fluoroscopy was used to confirm anatomic reduction and a proper placement of the implants. A longitudinal incision was created at the tip of the trochanter. The deep fascia was incised. The cannulated awl was used to open the proximal femur. The guidewire was placed across the fracture. The reamer was used to open the canal. The gamma nail was placed across the fracture site. A separate incision was made for placement of the cannulated guide sleeve. The guide pin was placed in the center of the femoral head. Appropriate measurement was taken. The pin was over reamed. The screw was placed with excellent purchase. The set screw was placed proximally and backed out a quater turn. The distal locking screw was placed. The jig was removed. The wound was irrigated. The deep fascia was closed with #1 Vicryl suture followed by 2-0 Vicryl suture and felice. Sterile dressing was applied. The patient was transferred to the recovery room in stable condition. There were no complications. Implants Gamma nail 11 x 180 125 degree. Estimated Blood Loss 200 Urine Output 575 Drains No Complications None Condition Stable Disposition PACU [facility] Billing Surgery - Charge Forward: Surgery Billing
[2023-04-16] MEDS: fentaNYL CITRATE INJ (*CRX) 100 MCG/2 ML VIAL 25 MCG IV PUSH (18:37)
[2023-04-16] MEDS: ACETAMINOPHEN 500 MG TABLET 1000 MG PO (20:08)
[2023-04-16] MEDS: SENNA/DOCUSATE SODIUM TABLET 2 TAB PO (20:08)
[2023-04-16] MEDS: ceFAZolin 2 GM/D5W 50 ML 2 GM/50 ML BAG IVPB (20:09)
[2023-04-17] VITALS (7 sets, daily range): BP systolic 123–132; BP diastolic 58–63; PULSE 79–92; RESP 16–18; TEMP 36.3–36.6; O2SAT 97–99; BMI 10.0
[2023-04-17] MEDS: ACETAMINOPHEN 500 MG TABLET 1000 MG PO ×3 (00:20→17:26)
[2023-04-17] MEDS: ceFAZolin 2 GM/D5W 50 ML 2 GM/50 ML BAG IVPB ×2 (04:28→14:17)
[2023-04-17 05:49] LABS: Basophils Percent Auto 0.3 % (0.2-1.2); Eosinophils Percent Auto 0.3 % (0-4.4); Hematocrit 23.3 % (42.0-52.0); Hemoglobin 7.6 g/dL (14.0-18.0); Immature Granulocyte Absolute 0.05 K/mm3 (0.00-0.031); Immature Granulocyte Percent A 0.6 % (0-0.5); Immature Platelet Fraction Pct 12.3 % (0.9-11.2); Lymphocytes Absolute Auto 0.55 K/mm3 (0.9-3.2); Lymphocytes Percent Auto 6.9 % (18.3-44.2); Mean Corpuscular HGB Conc 32.6 g/dl (32-36); Mean Corpuscular Hemoglobin 31.3 pg (26-34); Mean Corpuscular Volume 95.9 fl (80-100); Mean Platelet Volume 12.5 fl (7.4-10.4); Monocytes Absolute Auto 0.5 K/mm3 (0.1-0.6); Monocytes Percent Auto 6.8 % (2.6-8.5); Neutrophils Absolute Auto 6.8 K/mm3 (1.3-6.7); Neutrophils Percent Auto 85.1 % (45.5-73.1); Platelet Count Result 62 k/mm3 (150-375); Red Blood Count 2.43 M/mm3 (4.6-6.20); Red Cell Distribution Width 13.4 % (11.5-14.5)
[2023-04-17 06:36] LABS: Anion Gap 7 mmol/L (8-16); Blood Urea Nitrogen 21 mg/dL (9-20); Carbon Dioxide 28 mmol/L (22-30); Chloride 101 mmol/L (98-107); Estimated CRCL calculation 37 ml/min; Estimated Glomerular Filt Rate 40; Glucose 111 mg/dL (65-110); Potassium 2.9 mmol/L (3.4-5.0); Sodium 136 mmol/L (137-145)
[2023-04-17] MEDS: POTASSIUM CHLORIDE INJ 40 MEQ in SODIUM CHLORIDE 0.9% IV 500 ML 130 MEQ IVPB (08:35)
[2023-04-17] MEDS: POTASSIUM CHLORIDE 20 MEQ ER TABLET 40 MEQ PO (08:45)
--- NOTE | 2023-04-17 10:01 | P.PNAN_ITS ---
Anes - Prog Note Post-Op Date/Time: 04/17/23 10:01 Cardiovascular status: normal Respiratory status: normal Airway patency: baseline Mental status: baseline Post-Op hydration status: normal Vital Signs: Last Vital Signs Temp 36.3 C L 04/17/23 08:32 Pulse 80 04/17/23 08:32 Resp 16 04/17/23 08:32 BP 123/61 04/17/23 08:32 Pulse Ox 98 04/17/23 08:32 O2 Del Method Room Air 04/16/23 20:00 O2 Flow Rate 10 04/16/23 18:08 Pain Score (VAS): Patient asleep, no nonverbal signs of pain present at this time I/O: Intake & Output 04/16/23 04/17/23 04/17/23 23:59 07:59 15:59 Intake Total 150 50 Output Total 975 Balance -825 50 Laboratory Tests 04/17/23 05:25 04/17/23 05:25 04/16/23 04/17/23 11:34 05:25 WBC 8.0 RBC 2.43 L Hgb 7.6 L Hct 23.3 L MCV 95.9 MCH 31.3 MCHC 32.6 RDW 13.4 Plt Count 62 L MPV 12.5 H Immature Gran % (Auto) 0.6 H Neut % (Auto) 85.1 H Lymph % (Auto) 6.9 L [place] % (Auto) 6.8 Eos % (Auto) 0.3 Baso % (Auto) 0.3 Lymph # (Auto) 0.55 L [place] # (Auto) 0.5 Eos # (Auto) 0.0 Baso # (Auto) 0.0 Abs Immat Gran (auto) 0.05 H Absolute Neuts (auto) 6.8 H Absolute Nucleated RBC 0.0 Nucleated RBC % 0.0 % Immature Plt Fraction 12.3 H Sodium 136 L Potassium 2.9 L Chloride 101 Carbon Dioxide 28 Anion Gap 7 L BUN 21 H Creatinine 1.70 H Estim Creat Clear Calc 37 Estimated GFR 40 L Glucose 111 H Calcium 5.0 L Blood Type O Positive Antibody Screen Negative Post-procedural complaints: none Patient Feedback: Patient satisfied with anesthetic care.
--- NOTE | 2023-04-17 11:08 | PM.PNORT ---
Progress Note: A&P Assessment and Plan (1) Intertrochanteric fracture of left femur: Code(s): S72.142A - Displaced intertrochanteric fracture of left femur, initial encounter for closed fracture Status: Acute Assessment and Plan: Postop day 1: ORIF with cephalomedullary nail, left hip intertrochanteric fracture. Patient tolerated procedure well. With therapy at the time of my visit. Patient having trouble ambulating. Episode of likely vasovagal syncope with physical therapy. Patient will need discharged to a rehab or SNF. Discharge planning in progress. Continue PT/OT. Will continue to follow. Subjective Subjective Date/Time Seen: 04/17/23 11:08 Interval history: Patient standing at bedside with PT at the time of my visit. He notes pain in the hip. The therapist stated that he was very fearful to walk. Review of Systems Review of Systems: All systems reviewed & are unremarkable except as noted in HPI and below Exam Narrative: Normal weight 68 y/o Male. Resting comfortably in bed. Wearing compression socks bilaterally. Dressing dry and intact with no drainage. Moderate swelling. No edema. No ecchymosis. No erythema. No hematoma. Range of motion limited due to pain. Calf nontender. Thigh nontender. No varicosities. Distal pulses palpable. Objective Data Vital Signs Vital Signs: Vital Signs - 24 hr 04/16/23 15:15 04/16/23 18:08 04/16/23 18:15 Temperature 101.9 F H 98.3 F Pulse Rate 90 96 95 Respiratory Rate 16 17 13 Blood Pressure 135/62 142/75 H 140/67 Pulse Oximetry 99 100 98 Oxygen Delivery Room Air Simple Face Mask Room Air Oxygen Flow Rate 10 04/16/23 18:30 04/16/23 18:45 04/16/23 19:05 Temperature 98.6 F Pulse Rate 92 91 93 Respiratory Rate 12 15 18 Blood Pressure 132/63 133/64 157/70 H Pulse Oximetry 97 100 98 Oxygen Delivery Room Air Room Air Oxygen Flow Rate 04/16/23 19:20 04/16/23 19:50 04/16/23 20:00 Temperature 97.7 F 97.5 F L Pulse Rate 90 91 91 Respiratory Rate 16 16 16 Blood Pressure 139/62 151/65 H Pulse Oximetry 99 100 100 Oxygen Delivery Room Air Oxygen Flow Rate 04/16/23 20:50 04/17/23 00:12 04/17/23 04:28 Temperature 97.7 F 97.5 F L 97.5 F L Pulse Rate 97 91 84 Respiratory Rate 16 16 16 Blood Pressure 140/64 125/63 125/59 L Pulse Oximetry 97 98 98 Oxygen Delivery Oxygen Flow Rate 04/17/23 08:32 04/17/23 08:00 Temperature 97.4 F L Pulse Rate 80 Respiratory Rate 16 Blood Pressure 123/61 Pulse Oximetry 98 Oxygen Delivery Room Air Oxygen Flow Rate Intake/Output Intake/Output: Intake & Output 04/14/23 04/15/23 04/16/23 04/17/23 23:59 23:59 23:59 23:59 Intake Total 150 50 Output Total 1550 Balance -1400 50 Meds/Results Medications: Active Medications Generic Name Dose Route Start Last Admin Trade Name Freq PRN Reason Stop Dose Admin Acetaminophen 650 mg 04/15/23 20:47 Acetaminophen 325 Mg Tablet PO Q4H PRN Mild Pain (1-3) or Fever Acetaminophen 1,000 mg 04/16/23 18:47 04/17/23 06:32 Acetaminophen 500 Mg Tablet PO 1,000 mg Q6H NEHEMIAS Administration Hydrocodone Bitart/Acetaminophen 1 tab 04/15/23 20:47 Hydrocodone/Acetaminophen (*Crx) 5-325 Mg Tablet PO Q4H PRN Moderate Pain (4-6) Calcium Carbonate 1,000 mg 04/16/23 09:00 04/17/23 08:40 Calcium/Vitamin D 500 Mg Tablet PO 05/16/23 08:59 1,000 mg DAILY NEHEMIAS Administration Cyanocobalamin 1,000 mcg 04/16/23 09:00 04/17/23 08:46 Cyanocobalamin 1,000 Mcg Tablet BY MOUTH 05/16/23 08:59 1,000 mcg DAILY NEHEMIAS Administration Cyclobenzaprine HCl 10 mg 04/16/23 18:47 Cyclobenzaprine Hcl 10 Mg Tablet PO Q8H PRN Muscle Spasm Enoxaparin Sodium 30 mg 04/17/23 09:00 04/17/23 08:51 Enoxaparin 30 Mg/0.3 Ml Syringe SUB-Q Not Given DAILY NEHEMIAS Cefazolin Sodium 2 gm in 50 mls @ 100 mls/hr 04/16/23 20:00 04/17/23 04:58 Ancef 2 Gm/D5w 50 Ml IVPB 04/17/23 12:
--- NOTE | 2023-04-17 12:27 | PC.NURSE ---
Pt refused AM meds including PO potassium. Provider notified. No orders received.
--- NOTE | 2023-04-17 12:44 | PM.IMPN ---
Progress Note: A&P Assessment and Plan (1) Intertrochanteric fracture of left femur: Code(s): S72.142A - Displaced intertrochanteric fracture of left femur, initial encounter for closed fracture Status: Acute Assessment and Plan: Status post left gamma nail fixation (2) Chronic kidney disease, stage 4 (severe): Code(s): N18.4 - Chronic kidney disease, stage 4 (severe) Status: Acute Assessment and Plan: 04/17: Renal function improved today BUN 21 serum creatinine 1.7 estimated GFR 40 estimated creatinine clearance 37 (3) Chronic anemia: Code(s): D64.9 - Anemia, unspecified Status: Acute Assessment and Plan: Stable, hemoglobin went from 8.2 preoperative to 7.6 this morning. Check with daily labs. (4) Seizure disorder: Code(s): G40.909 - Epilepsy, unspecified, not intractable, without status epilepticus Status: Acute Assessment and Plan: Stable, continue home medications (5) Hypokalemia: Code(s): E87.6 - Hypokalemia Status: Acute Assessment and Plan: Potassium 2.9 this morning, patient took his 20 mEq daily dose of potassium but refused additional oral potassium. He did receive 40 mEq IV. (6) Hypocalcemia: Code(s): E83.51 - Hypocalcemia Status: Acute Assessment and Plan: Calcium level 5.0 this morning, 1 g calcium chloride infusion ordered over 1 hour Plan Replace electrolytes and monitor renal function Monitor hemoglobin and hematocrit, transfuse if less /20 Work with therapy, discharge plan SNF or swing bed Time Spent With Patient Time with patient: 25 - 35 minutes Subjective Date/time seen: 04/17/23 12:44 Interval history: Patient underwent left gamma nail for femur fracture yesterday. He states that he is doing well today except for some left hip pain. He has worked with therapy already today. Patient did refuse a lot oral medications this morning including additional potassium prescribed for his low potassium level. Patient also noted to have low calcium for which calcium chloride infusion was ordered. Review of Systems Review of Systems: All systems reviewed & are unremarkable except as noted in HPI and below Exam Narrative: General: Well-developed male in the semi-Sweeney position in bed in no acute distress. HEENT: Small abrasion on the bridge of the left side of the nose where his glasses hit the ground. Mild periorbital edema. pERRL, EOMI. Sclera anicteric. Oral mucosa moist. Neck: Supple. No JVD Respiratory: Lungs are clear to auscultation bilaterally. Cardiovascular: Regular rate and rhythm with S1-S2. Gastrointestinal: Abdomen is soft, nontender, and nondistended with positive bowel sounds. Skin: Warm and dry. Small abrasion on the heel of the right palm. Extremities: No cyanosis, clubbing, or edema. Radial and pedal pulses intact. Left hip painful to touch and active/passive range of motion. Surgical dressing clean dry and intact. Neurological: Alert. Cranial nerves 2-12 are grossly intact. No gross focal deficits to casual conversation. Psychiatric: Pleasant and cooperative. Appropriate mood. Objective Data Vital Signs Vital Signs: Vital Signs - 24 hr 04/16/23 15:15 04/16/23 18:08 04/16/23 18:15 Temperature 38.8 C H 36.8 C Pulse Rate 90 96 95 Respiratory Rate 16 17 13 Blood Pressure 135/62 142/75 H 140/67 Pulse Oximetry 99 100 98 Oxygen Delivery Room Air Simple Face Mask Room Air Oxygen Flow Rate 10 04/16/23 18:30 04/16/23 18:45 04/16/23 19:05 Temperature 37.0 C Pulse Rate 92 91 93 Respiratory Rate 12 15 18 Blood Pressure 132/63 133/64 157/70 H Pulse Oximetry 97 100 98 Oxygen Delivery Room Air Room Air Oxygen Flow Rate 04/16/23 19:20 04/16/23 19:50 04/16/23 20:00 Temperature 36.5 C 36.4 C L Pulse Rate 90 91 91 Respiratory Rate 16 16 16 Blood Pressure 139/62 151/65 H Pulse Oximetry 99 100 100 Oxygen Delivery Room Air Oxygen Flow
[2023-04-17] MEDS: CALCIUM CHLOR 1,000MG/100ML NS 1,000 MG/100 ML BAG 100 MG IVPB (14:53)
[2023-04-17] MEDS: PHENobarbital (*CRX) 100 MG TABLET PO (20:08)
[2023-04-18 04:32] VITALS: BP 125/56; PULSE 85; RESP 18; TEMP 36.6; O2SAT 100
[2023-04-18] MEDS: ACETAMINOPHEN 500 MG TABLET 1000 MG PO ×2 (06:22→13:03)
[2023-04-18] MEDS: PANTOPRAZOLE 40 MG TABLET PO (09:16)
[2023-04-18] MEDS: POTASSIUM CHLORIDE 20 MEQ ER TABLET PO (09:17)
[2023-04-18] MEDS: OPTI-GEN TAB 1 TABLET PO (09:17)
[2023-04-18 12:20] LABS: Hematocrit 24.9 % (42.0-52.0); Immature Platelet Fraction Pct 14.6 % (0.9-11.2); Mean Corpuscular HGB Conc 32.1 g/dl (32-36); Mean Corpuscular Hemoglobin 30.8 pg (26-34); Mean Corpuscular Volume 95.8 fl (80-100); Mean Platelet Volume 12.5 fl (7.4-10.4); Platelet Count Result 93 k/mm3 (150-375); Red Cell Distribution Width 13.6 % (11.5-14.5); White Blood Count 11.4 K/mm3 (4.5-10.0)
[2023-04-18 12:31] LABS: Anion Gap 10 mmol/L (8-16); Blood Urea Nitrogen 23 mg/dL (9-20); Calcium 5.6 mg/dL (8.4-10.2); Carbon Dioxide 24 mmol/L (22-30); Chloride 102 mmol/L (98-107); Estimated CRCL calculation 37 ml/min; Estimated Glomerular Filt Rate 40; Glucose 110 mg/dL (65-110); Potassium 3.5 mmol/L (3.4-5.0); Sodium 136 mmol/L (137-145)
[2023-04-18 13:11] VITALS: O2SAT 97
--- NOTE | 2023-04-18 14:41 | PM.IMPN ---
Progress Note: A&P Assessment and Plan (1) Fall from ground level: Code(s): W18.30XA - Fall on same level, unspecified, initial encounter Status: Acute (2) Seizure disorder: Code(s): G40.909 - Epilepsy, unspecified, not intractable, without status epilepticus Status: Acute (3) Hypoparathyroidism: Code(s): E20.9 - Hypoparathyroidism, unspecified Status: Acute (4) Intertrochanteric fracture of left femur: Code(s): S72.142A - Displaced intertrochanteric fracture of left femur, initial encounter for closed fracture Status: Acute Plan # left femur intertrochanteric fracture -status post left gamma nail with Dr. Zavala -WBC up to 11.4, afebrile, will monitor -pain control: tylenol, norco, has flexeril for spasms -bowel regimen: miralax, senna, docusate # electrolyte disturbances -hypokalemia: Continue replacement, K 3.5, on KCL 20 mEq -hypocalcemia: on calcium/vit D, was given calcium chloride 1g # chronic conditions -CKD stage 4: avoid nephrotoxic agents, Cr 1.7 -epilepsy: phenobarbital -GERD: protonix Diet: Regular DVT prophylaxis: Will do Lovenox with thrombocytopenia Code status: DNR Disposition: SNF vs swing Subjective Date/time seen: 04/18/23 14:41 Interval history: Patient seen and examined. He is doing well with no new complaints. Nurse was concerned he had a short episode of being not responsive, however by the time they started getting vitals he was back to his normal self. We will continue to monitor. His surgical site is c/d/i. He denies fever, chills, N/V/D, chest pain, dyspnea. Review of Systems Review of Systems: 10 point ROS complete, negative other than what is specified in HPI. Exam Narrative: - GENERAL: Pleasant male in no acute distress. Well-nourished. - EYES: EOMI. Anicteric. - HENT: Moist mucous membranes. - LUNGS: Clear to auscultation bilaterally, no wheezing, rhonchi, or rales. - CARDIOVASCULAR: Regular rate and rhythm. No murmur. No JVD. - ABDOMEN: Soft, non-tender and non-distended. No palpable masses. - EXTREMITIES: No edema. Peripheral pulses 2+. Non-tender. LLE dressing C/D/I - NEUROLOGIC: No focal neurological deficits. CN II-XII grossly intact. - PSYCHIATRIC: Awake, Alert and oriented x 3. Appropriate mood and affect. - SKIN: No rashes or lesions. Warm. - LYMPH: No cervical lymphadenopathy. Objective Data Vital Signs Vital Signs: Vital Signs - 24 hr 04/17/23 16:32 04/17/23 19:39 04/17/23 20:00 Temperature 36.4 C 36.5 C Pulse Rate 79 92 92 Respiratory Rate 16 18 18 Blood Pressure 130/58 L 132/58 L Pulse Oximetry 99 99 99 Oxygen Delivery Room Air 04/18/23 04:32 04/18/23 09:20 04/18/23 13:11 Temperature 36.6 C Pulse Rate 85 Respiratory Rate 18 Blood Pressure 125/56 L Pulse Oximetry 100 97 Oxygen Delivery Room Air Room Air Intake/Output Intake/Output: Intake & Output 04/15/23 04/16/23 04/17/23 04/18/23 23:59 23:59 23:59 23:59 Intake Total 150 820 370 Output Total 1550 1200 700 Balance -1400 -380 -330 Meds/Results Medications: Active Medications Generic Name Dose Route Start Last Admin Trade Name Serafinq PRN Reason Stop Dose Admin Acetaminophen 650 mg 04/15/23 20:47 Acetaminophen 325 Mg Tablet PO Q4H PRN Mild Pain (1-3) or Fever Acetaminophen 1,000 mg 04/16/23 18:47 04/18/23 13:03 Acetaminophen 500 Mg Tablet PO 1,000 mg Q6H [facility] Administration Hydrocodone Bitart/Acetaminophen 1 tab 04/15/23 20:47 Hydrocodone/Acetaminophen (*Crx) 5-325 Mg Tablet PO Q4H PRN Moderate Pain (4-6) Calcium Carbonate 1,000 mg 04/16/23 09:00 04/18/23 09:26 Calcium/Vitamin D 500 Mg Tablet PO 05/16/23 08:59 Not Given DAILY [facility] Cyanocobalamin 1,000 mcg 04/16/23 09:00 04/18/23 09:26 Cyanocobalamin 1,000 Mcg Tablet BY MOUTH 05/16/23 08:59 Not Given DAILY [facility] Cyclobenzaprine HCl 10 mg 04/16/23 18:47 Cyclobenzaprine Hcl
--- NOTE | 2023-04-18 15:21 | PM.PNORT ---
Progress Note: A&P Assessment and Plan (1) Intertrochanteric fracture of left femur: Code(s): S72.142A - Displaced intertrochanteric fracture of left femur, initial encounter for closed fracture Status: Acute Assessment and Plan: Postop day 2: ORIF with cephalomedullary nail, left hip intertrochanteric fracture. Patient tolerated procedure well. Patient feeling better today. Pain controlled. He understand that he may weight bear as tolerated with a walker. It will take 6 weeks for initial bone healing. He shows understanding. Patient will need discharged to a rehab or SNF. Discharge planning in progress. Continue PT/OT. Okay for discharge from orthopedic standpoint. Dr. Zavala also saw the patient today. He agrees with the care plan. Ortho instructions: D/C to SNF/rehab follow up in office in 4-6 weeks with xrays. Wound Care: remove felice at 2 weeks post op. Daily dressing changes until healed. PT: Weightbearing as tolerated with a walker. DVT prophylaxis: continue Lovenox for 30 days total Subjective Subjective Date/Time Seen: 04/18/23 15:21 Interval history: Patient resting comfortably in bed. Pain with getting out of bed. No pain at rest. No other complaints. Review of Systems Review of Systems: All systems reviewed & are unremarkable except as noted in HPI and below Exam Narrative: Normal weight 68 y/o Male. Resting comfortably in bed. Wearing compression socks bilaterally. Dressing clean, dry and intact with no drainage. Moderate swelling. No edema. No ecchymosis. No erythema. No hematoma. Range of motion limited due to pain. Calf nontender. Thigh nontender. No varicosities. Distal pulses palpable. Objective Data Vital Signs Vital Signs: Vital Signs - 24 hr 04/17/23 16:32 04/17/23 19:39 04/17/23 20:00 Temperature 97.6 F 97.7 F Pulse Rate 79 92 92 Respiratory Rate 16 18 18 Blood Pressure 130/58 L 132/58 L Pulse Oximetry 99 99 99 Oxygen Delivery Room Air 04/18/23 04:32 04/18/23 09:20 04/18/23 13:11 Temperature 97.9 F Pulse Rate 85 Respiratory Rate 18 Blood Pressure 125/56 L Pulse Oximetry 100 97 Oxygen Delivery Room Air Room Air Intake/Output Intake/Output: Intake & Output 0904/16/23 04/17/23 04/18/23 23:59 23:59 23:59 23:59 Intake Total 150 820 370 Output Total 1550 0146 689 Fhzvosa -9637 -684 -519 Meds/Results Medications: Active Medications Generic Name Dose Route Start Last Admin Trade Name Freq PRN Reason Stop Dose Admin Acetaminophen 650 mg 04/15/23 20:47 Acetaminophen 325 Mg Tablet PO Q4H PRN Mild Pain (1-3) or Fever Acetaminophen 1,000 mg 04/16/23 18:47 04/18/23 13:03 Acetaminophen 500 Mg Tablet PO 1,000 mg Q6H NEHEMIAS Administration Hydrocodone Bitart/Acetaminophen 1 tab 04/15/23 20:47 Hydrocodone/Acetaminophen (*Crx) 5-325 Mg Tablet PO Q4H PRN Moderate Pain (4-6) Calcium Carbonate 1,000 mg 04/16/23 09:00 04/18/23 09:26 Calcium/Vitamin D 500 Mg Tablet PO 05/16/23 08:59 Not Given DAILY [facility] Cyanocobalamin 1,000 mcg 04/16/23 09:00 04/18/23 09:26 Cyanocobalamin 1,000 Mcg Tablet BY MOUTH 05/16/23 08:59 Not Given DAILY [facility] Cyclobenzaprine HCl 10 mg 04/16/23 18:47 Cyclobenzaprine Hcl 10 Mg Tablet PO Q8H PRN Muscle Spasm Enoxaparin Sodium 30 mg 04/17/23 09:00 04/18/23 09:17 Enoxaparin 30 Mg/0.3 Ml Syringe SUB-Q Not Given DAILY [facility] Multivitamins/Minerals 1 tablet 04/16/23 09:00 04/18/23 09:17 Opti-Gen Tab PO 05/16/23 08:59 1 tablet DAILY [facility] Administration Naloxone HCl 0.1 mg 04/16/23 18:47 Naloxone Hcl 0.4 Mg/Ml Vial IV PUSH Q2M PRN Opiate Reversal Ondansetron HCl 4 mg 04/16/23 18:47 Ondansetron Inj 4 Mg/2 Ml Vial IV PUSH Q4H PRN Nausea And Vomiting Pantoprazole Sodium 40 mg 04/16/23 09:00 04/18/23 09:16 Pantoprazole 40 Mg Tablet PO 05/16/23 08:59 40 mg DAILY [facility]
--- NOTE | 2023-04-18 15:33 | PM.PNORT ---
Progress Note: A&P Assessment and Plan (1) Intertrochanteric fracture of left femur: Qualifiers: Encounter type: subsequent encounter Fracture type: closed Fracture alignment: displaced Fracture healing: with routine healing Qualified Code(s): S72.142D - Displaced intertrochanteric fracture of left femur, subsequent encounter for closed fracture with routine healing Code(s): S72.142A - Displaced intertrochanteric fracture of left femur, initial encounter for closed fracture Status: Acute Plan Postoperative day 1 status post IM nailing of the left intertrochanteric hip fracture. He is comfortable. Mobilizing appropriately. Afebrile. Vital signs stable. Wound clean dry and intact. Thigh soft. No hematoma. Limb alignment is good. No distal edema. Calf nontender. Wiggles toes. Doing well after surgery. His spirits are up. He appears comfortable. Continue therapy as able at the swing bed. Follow-up in 4-6 weeks in clinic. He may weight bear as tolerated with the walker. Subjective Subjective Date/Time Seen: 04/18/23 15:33 Objective Data Vital Signs Vital Signs: Vital Signs - 24 hr 04/17/23 16:32 04/17/23 19:39 04/17/23 20:00 Temperature 36.4 C 36.5 C Pulse Rate 79 92 92 Respiratory Rate 16 18 18 Blood Pressure 130/58 L 132/58 L Pulse Oximetry 99 99 99 Oxygen Delivery Room Air 04/18/23 04:32 04/18/23 09:20 04/18/23 13:11 Temperature 36.6 C Pulse Rate 85 Respiratory Rate 18 Blood Pressure 125/56 L Pulse Oximetry 100 97 Oxygen Delivery Room Air Room Air Intake/Output Intake/Output: Intake & Output 04/15/23 04/16/23 04/17/23 04/18/23 23:59 23:59 23:59 23:59 Intake Total 150 820 370 Output Total 1550 1200 700 Balance -1400 -380 -330 Meds/Results Medications: Active Medications Generic Name Dose Route Start Last Admin Trade Name Freq PRN Reason Stop Dose Admin Acetaminophen 650 mg 04/15/23 20:47 Acetaminophen 325 Mg Tablet PO Q4H PRN Mild Pain (1-3) or Fever Acetaminophen 1,000 mg 04/16/23 18:47 04/18/23 13:03 Acetaminophen 500 Mg Tablet PO 1,000 mg Q6H [facility] Administration Hydrocodone Bitart/Acetaminophen 1 tab 04/15/23 20:47 Hydrocodone/Acetaminophen (*Crx) 5-325 Mg Tablet PO Q4H PRN Moderate Pain (4-6) Calcium Carbonate 1,000 mg 04/16/23 09:00 04/18/23 09:26 Calcium/Vitamin D 500 Mg Tablet PO 05/16/23 08:59 Not Given DAILY [facility] Cyanocobalamin 1,000 mcg 04/16/23 09:00 04/18/23 09:26 Cyanocobalamin 1,000 Mcg Tablet BY MOUTH 05/16/23 08:59 Not Given DAILY [facility] Cyclobenzaprine HCl 10 mg 04/16/23 18:47 Cyclobenzaprine Hcl 10 Mg Tablet PO Q8H PRN Muscle Spasm Enoxaparin Sodium 30 mg 04/17/23 09:00 04/18/23 09:17 Enoxaparin 30 Mg/0.3 Ml Syringe SUB-Q Not Given DAILY [facility] Multivitamins/Minerals 1 tablet 04/16/23 09:00 04/18/23 09:17 Opti-Gen Tab PO 05/16/23 08:59 1 tablet DAILY [facility] Administration Naloxone HCl 0.1 mg 04/16/23 18:47 Naloxone Hcl 0.4 Mg/Ml Vial IV PUSH Q2M PRN Opiate Reversal Ondansetron HCl 4 mg 04/16/23 18:47 Ondansetron Inj 4 Mg/2 Ml Vial IV PUSH Q4H PRN Nausea And Vomiting Pantoprazole Sodium 40 mg 04/16/23 09:00 04/18/23 09:16 Pantoprazole 40 Mg Tablet PO 05/16/23 08:59 40 mg DAILY [facility] Administration Phenobarbital 100 mg 04/16/23 00:05 04/17/23 20:08 Phenobarbital (*Crx) 100 Mg Tablet PO 100 mg HS NEHEMIAS Administration Polyethylene Glycol 17 gm 04/17/23 09:00 04/18/23 09:20 Polyethylene Glycol 3350 17 Gm Powd.Pack PO Not Given QAM [facility] Potassium Chloride 20 meq 04/16/23 09:00 04/18/23 09:17 Potassium Chloride 20 Meq Er Tablet PO 05/16/23 08:59 20 meq DAILY [facility] Administration Senna/Docusate Sodium 2 tab 04/16/23 18:47 04/18/23 09:26 Senna/Docusate Sodium Tablet PO Not Given BID [facility] Radiology Results: ITS Impressions Intraop
[2023-04-18] MEDS: SENNA/DOCUSATE SODIUM TABLET 2 TAB PO (17:50)
[2023-04-18 19:44] VITALS: BP 116/56; PULSE 89; RESP 18; TEMP 36.6; O2SAT 100
[2023-04-18 20:00] VITALS: PULSE 89; RESP 18; O2SAT 100
[2023-04-18] MEDS: PHENobarbital (*CRX) 100 MG TABLET PO (20:12)
[2023-04-19] VITALS (8 sets, daily range): BP systolic 113–138; BP diastolic 52–68; PULSE 86–91; RESP 16–18; TEMP 36.5–37.3; O2SAT 98–100
[2023-04-19 06:05] LABS: Basophils Percent Auto 0.5 % (0.2-1.2); Eosinophils Absolute Auto 0.1 K/mm3 (0-0.3); Eosinophils Percent Auto 1.6 % (0-4.4); Immature Granulocyte Absolute 0.02 K/mm3 (0.00-0.031); Immature Granulocyte Percent A 0.3 % (0-0.5); Immature Platelet Fraction Pct 10.3 % (0.9-11.2); Lymphocytes Percent Auto 11.5 % (18.3-44.2); Mean Corpuscular Hemoglobin 31.2 pg (26-34); Mean Corpuscular Volume 94.5 fl (80-100); Mean Platelet Volume 12.5 fl (7.4-10.4); Monocytes Absolute Auto 0.4 K/mm3 (0.1-0.6); Monocytes Percent Auto 6.5 % (2.6-8.5); Neutrophils Absolute Auto 4.9 K/mm3 (1.3-6.7); Neutrophils Percent Auto 79.6 % (45.5-73.1); Platelet Count Result 79 k/mm3 (150-375); Red Blood Count 2.18 M/mm3 (4.6-6.20); Red Cell Distribution Width 13.6 % (11.5-14.5); White Blood Count 6.1 K/mm3 (4.5-10.0)
[2023-04-19 06:11] LABS: Anion Gap 9 mmol/L (8-16); Blood Urea Nitrogen 23 mg/dL (9-20); Calcium 5.2 mg/dL (8.4-10.2); Carbon Dioxide 23 mmol/L (22-30); Chloride 104 mmol/L (98-107); Estimated CRCL calculation 37 ml/min; Estimated Glomerular Filt Rate 40; Glucose 90 mg/dL (65-110); Magnesium 1.8 mg/dL (1.6-2.3); Potassium 3.1 mmol/L (3.4-5.0); Sodium 136 mmol/L (137-145)
[2023-04-19 06:15] LABS: Hematocrit 20.6 % (42.0-52.0); Hemoglobin 6.8 g/dL (14.0-18.0)
[2023-04-19] MEDS: SENNA/DOCUSATE SODIUM TABLET 2 TAB PO ×2 (09:54→17:14)
[2023-04-19] MEDS: OPTI-GEN TAB 1 TABLET PO (09:54)
[2023-04-19] MEDS: PANTOPRAZOLE 40 MG TABLET PO (09:54)
[2023-04-19] MEDS: POTASSIUM CHLORIDE 20 MEQ ER TABLET PO (09:54)
[2023-04-19] MEDS: CYANOCOBALAMIN 1,000 MCG TABLET 1000 MCG BY MOUTH (09:54)
--- NOTE | 2023-04-19 09:54 | PCPTNOTE ---
Attempted therapy session, Pt with Nurse. Will attempt again.
[2023-04-19] MEDS: POTASSIUM CHLORIDE INJ 40 MEQ in SODIUM CHLORIDE 0.9% IV 500 ML 130 MEQ IVPB (09:57)
--- NOTE | 2023-04-19 11:08 | PCPTNOTE ---
Attempted therapy session. Pt declined at this time due to wanting to take a nap. He requested therapy to come back in the afternoon. Will attempt again.
--- NOTE | 2023-04-19 11:46 | PM.IMPN ---
Progress Note: A&P Assessment and Plan (1) Seizure disorder: Code(s): G40.909 - Epilepsy, unspecified, not intractable, without status epilepticus Status: Acute (2) Intertrochanteric fracture of left femur: Qualifiers: Encounter type: subsequent encounter Fracture type: closed Fracture alignment: displaced Fracture healing: with routine healing Qualified Code(s): S72.142D - Displaced intertrochanteric fracture of left femur, subsequent encounter for closed fracture with routine healing Code(s): S72.142A - Displaced intertrochanteric fracture of left femur, initial encounter for closed fracture Status: Acute (3) Hypokalemia: Code(s): E87.6 - Hypokalemia Status: Acute (4) Hypocalcemia: Code(s): E83.51 - Hypocalcemia Status: Acute Plan # left femur intertrochanteric fracture # post-op anemia -status post left gamma nail with Dr. Zavala -WBC normalized -pain control: tylenol, norco, has flexeril for spasms -bowel regimen: miralax, senna, docusate -hgb drop to 6.8, giving 1u PRBC, likely post-op anemia, wound is C/D/I # electrolyte disturbances -hypokalemia: Continue replacement, K 3.1, on KCL 20 mEq and 40mEq IV KCL -hypocalcemia:? on calcium/vit D, calcium gluconate 2g for Ca 5.2 # chronic conditions -CKD stage 4: avoid nephrotoxic agents, Cr 1.7 -epilepsy: phenobarbital -GERD: protonix Diet:??Regular DVT prophylaxis:??held Lovenox with thrombocytopenia Code status:??DNR Disposition:?swing bed Subjective Date/time seen: 04/19/23 11:46 Interval history: Patient seen and examined. He appears to be doing well no new complaints. Hemoglobin dropped to 6.8 giving 1 unit packed red blood cell. Potassium 3.1 which we will replete continue KCL 20mEq PO and give 40mEq IV x1. Patient to continue working with therapy anticipation for swing bed. Patient denies fever, chills, nausea vomiting diarrhea, lightheadedness, dizziness. Review of Systems Review of Systems: 10 point ROS complete, negative other than what is specified in HPI. Exam Narrative: - GENERAL:? Pleasant male in no acute distress. - EYES: EOMI. Anicteric. - HENT: Moist mucous membranes. - LUNGS: Clear to auscultation bilaterally, no wheezing, rhonchi, or rales. - CARDIOVASCULAR: Regular rate and rhythm. No murmur. No JVD. - ABDOMEN: Soft, non-tender and non-distended. No palpable masses. - EXTREMITIES: No edema. Peripheral pulses 2+. Non-tender. LLE dressing C/D/I - NEUROLOGIC: No focal neurological deficits. CN II-XII grossly intact. - PSYCHIATRIC: Awake, Alert and oriented x 3. Appropriate mood and affect. - SKIN: No rashes or lesions. Warm. - LYMPH: No cervical lymphadenopathy. Objective Data Vital Signs Vital Signs: Vital Signs - 24 hr 04/18/23 13:11 04/18/23 19:44 04/18/23 20:00 Temperature 36.6 C Pulse Rate 89 89 Respiratory Rate 18 18 Blood Pressure 116/56 L Pulse Oximetry 97 100 100 Oxygen Delivery Room Air Room Air 04/19/23 05:00 04/19/23 09:53 04/19/23 09:50 Temperature 36.5 C Pulse Rate 89 91 Respiratory Rate 18 Blood Pressure 113/52 L 125/60 Pulse Oximetry 100 98 Oxygen Delivery Room Air Intake/Output Intake/Output: Intake & Output 04/16/23 04/17/23 04/18/23 04/19/23 23:59 23:59 23:59 23:59 Intake Total 508 916 5241 200 Output Total 1550 1200 700 625 Balance -1400 -380 910 -425 Meds/Results Medications: Active Medications Generic Name Dose Route Start Last Admin Trade Name Serafinq PRN Reason Stop Dose Admin Acetaminophen 650 mg 04/15/23 20:47 Acetaminophen 325 Mg Tablet PO Q4H PRN Mild Pain (1-3) or Fever Acetaminophen 1,000 mg 04/16/23 18:47 04/18/23 13:03 Acetaminophen 500 Mg Tablet PO 1,000 mg Q6H NEHEMIAS Administration Hydrocodone Bitart/Acetaminophen 1 tab 04/15/23 20:47 Hydrocodone/Acetaminophen (*Crx) 5-325 Mg Tablet PO Q4H PRN Moderate Pain (4-6) Calcium Carbon
--- NOTE | 2023-04-19 11:57 | PC.NURSE ---
Patient's family member Pam Perez (primary contact), requested to be notified prior to any new medications being administered, and to be notified of any tests or procedures before starting.
[2023-04-19] MEDS: CALCIUM GLUC 2,000 MG/NS 100ML 2,000 MG/100 ML BAG 100 MG IVPB (12:46)
[2023-04-19] MEDS: SODIUM CHLORIDE 0.9% IV 250 ML 30 ML IV CONT (14:19)
[2023-04-19] MEDS: PHENobarbital (*CRX) 100 MG TABLET PO (20:46)
[2023-04-20 04:04] VITALS: BP 126/59; PULSE 87; RESP 16; TEMP 36.4; O2SAT 98
[2023-04-20 05:55] LABS: Basophils Percent Auto 0.7 % (0.2-1.2); Eosinophils Absolute Auto 0.2 K/mm3 (0-0.3); Eosinophils Percent Auto 3.4 % (0-4.4); Hematocrit 24.7 % (42.0-52.0); Immature Granulocyte Absolute 0.03 K/mm3 (0.00-0.031); Immature Granulocyte Percent A 0.5 % (0-0.5); Lymphocytes Absolute Auto 0.67 K/mm3 (0.9-3.2); Mean Corpuscular HGB Conc 32.4 g/dl (32-36); Mean Corpuscular Hemoglobin 30.8 pg (26-34); Mean Platelet Volume 12.1 fl (7.4-10.4); Monocytes Absolute Auto 0.5 K/mm3 (0.1-0.6); Monocytes Percent Auto 7.4 % (2.6-8.5); Neutrophils Absolute Auto 4.7 K/mm3 (1.3-6.7); Platelet Count Result 87 k/mm3 (150-375); Red Cell Distribution Width 13.8 % (11.5-14.5); White Blood Count 6.1 K/mm3 (4.5-10.0)
[2023-04-20 06:05] LABS: Anion Gap 7 mmol/L (8-16); Blood Urea Nitrogen 22 mg/dL (9-20); Calcium 5.3 mg/dL (8.4-10.2); Carbon Dioxide 24 mmol/L (22-30); Chloride 106 mmol/L (98-107); Estimated CRCL calculation 39 ml/min; Estimated Glomerular Filt Rate 43; Glucose 89 mg/dL (65-110); Magnesium 1.8 mg/dL (1.6-2.3); Potassium 3.3 mmol/L (3.4-5.0); Sodium 137 mmol/L (137-145)
--- NOTE | 2023-04-20 08:16 | PM.PNORT ---
Progress Note: A&P Assessment and Plan (1) Intertrochanteric fracture of left femur: Qualifiers: Encounter type: subsequent encounter Fracture type: closed Fracture alignment: displaced Fracture healing: with routine healing Qualified Code(s): S72.142D - Displaced intertrochanteric fracture of left femur, subsequent encounter for closed fracture with routine healing Code(s): S72.142A - Displaced intertrochanteric fracture of left femur, initial encounter for closed fracture Status: Acute (2) Postoperative anemia due to acute blood loss: Code(s): D62 - Acute posthemorrhagic anemia Status: Acute Plan Comfortable. Transfusion given. Hbg 8.0. Asymptomatic. Thigh with mild fullness lateral consistent with mild hematoma. No change. No drainage. Calves non tender. No edema. Patient looks good. Anemia secondary to post op and fracture bleeding. Continue to mobilize with therapy. Dressing change today. Ok to discharge when ready. Subjective Subjective Date/Time Seen: 04/20/23 08:16 Objective Data Vital Signs Vital Signs: Vital Signs - 24 hr 04/19/23 09:53 04/19/23 09:50 04/19/23 14:20 Temperature 37.0 C Pulse Rate 91 89 Respiratory Rate 16 Blood Pressure 125/60 131/67 Pulse Oximetry 98 100 Oxygen Delivery Room Air 04/19/23 14:44 04/19/23 15:42 04/19/23 16:44 Temperature 36.9 C 37.3 C 36.5 C Pulse Rate 86 87 87 Respiratory Rate 16 16 16 Blood Pressure 121/60 135/63 126/67 Pulse Oximetry 99 100 100 Oxygen Delivery 04/19/23 17:25 04/19/23 20:03 04/20/23 04:04 Temperature 36.9 C 36.6 C 36.4 C Pulse Rate 87 91 87 Respiratory Rate 16 18 16 Blood Pressure 138/68 137/64 126/59 L Pulse Oximetry 99 99 98 Oxygen Delivery Intake/Output Intake/Output: Intake & Output 04/17/23 04/18/23 04/19/23 04/20/23 23:59 23:59 23:59 23:59 Intake Total 820 1610 1250 200 Output Total 1929 262 8176 600 Balance -380 910 -125 -400 Meds/Results Medications: Active Medications Generic Name Dose Route Start Last Admin Trade Name Freq PRN Reason Stop Dose Admin Acetaminophen 650 mg 04/15/23 20:47 Acetaminophen 325 Mg Tablet PO Q4H PRN Mild Pain (1-3) or Fever Acetaminophen 1,000 mg 04/16/23 18:47 04/18/23 13:03 Acetaminophen 500 Mg Tablet PO 1,000 mg Q6H [facility]HEMIAS Administration Hydrocodone Bitart/Acetaminophen 1 tab 04/15/23 20:47 Hydrocodone/Acetaminophen (*Crx) 5-325 Mg Tablet PO Q4H PRN Moderate Pain (4-6) Calcium Carbonate 1,000 mg 04/16/23 09:00 04/19/23 09:55 Calcium/Vitamin D 500 Mg Tablet PO 05/16/23 08:59 1,000 mg DAILY [facility] Administration Cyanocobalamin 1,000 mcg 04/16/23 09:00 04/19/23 09:54 Cyanocobalamin 1,000 Mcg Tablet BY MOUTH 05/16/23 08:59 1,000 mcg DAILY [facility] Administration Cyclobenzaprine HCl 10 mg 04/16/23 18:47 Cyclobenzaprine Hcl 10 Mg Tablet PO Q8H PRN Muscle Spasm Enoxaparin Sodium 30 mg 04/17/23 09:00 04/18/23 09:17 Enoxaparin 30 Mg/0.3 Ml Syringe SUB-Q Not Given DAILY [facility] Multivitamins/Minerals 1 tablet 04/16/23 09:00 04/19/23 09:54 Opti-Gen Tab PO 05/16/23 08:59 1 tablet DAILY [facility] Administration Naloxone HCl 0.1 mg 04/16/23 18:47 Naloxone Hcl 0.4 Mg/Ml Vial IV PUSH Q2M PRN Opiate Reversal Ondansetron HCl 4 mg 04/16/23 18:47 Ondansetron Inj 4 Mg/2 Ml Vial IV PUSH Q4H PRN Nausea And Vomiting Pantoprazole Sodium 40 mg 04/16/23 09:00 04/19/23 09:54 Pantoprazole 40 Mg Tablet PO 05/16/23 08:59 40 mg DAILY [facility] Administration Phenobarbital 100 mg 04/16/23 00:05 04/19/23 20:46 Phenobarbital (*Crx) 100 Mg Tablet PO 100 mg HS [facility] Administration Polyethylene Glycol 17 gm 04/17/23 09:00 04/19/23 09:56 Polyethylene Glycol 3350 17 Gm Powd.Pack PO Not Given QAM [facility] Potassium Chloride 20 meq 04/16/23 09:00 04/19/23 09:54 Potassium Chloride 20 Meq Er Tablet PO 05/16/23 08
[2023-04-20] MEDS: POTASSIUM CHLORIDE 20 MEQ ER TABLET PO (08:43)
[2023-04-20] MEDS: OPTI-GEN TAB 1 TABLET PO (08:43)
[2023-04-20] MEDS: CYANOCOBALAMIN 1,000 MCG TABLET 1000 MCG BY MOUTH (08:44)
[2023-04-20] MEDS: SENNA/DOCUSATE SODIUM TABLET 2 TAB PO (08:44)
[2023-04-20] MEDS: PANTOPRAZOLE 40 MG TABLET PO (08:44)
--- NOTE | 2023-04-20 11:25 | PM.DS ---
DS: Admitting Diagnosis Discharge Date 04/20/23 Admitting Diagnosis Left hip intertrochanteric fracture DS: Discharge Diagnosis Discharge Diagnosis (1) Intertrochanteric fracture of left femur: Qualifiers: Encounter type: subsequent encounter Fracture alignment: displaced Fracture healing: with routine healing Fracture type: closed Qualified Code(s): S72.142D - Displaced intertrochanteric fracture of left femur, subsequent encounter for closed fracture with routine healing Code(s): S72.142A - Displaced intertrochanteric fracture of left femur, initial encounter for closed fracture Status: Acute Plan # left femur intertrochanteric fracture # post-op anemia -status post left gamma nail with Dr. Zavala -WBC normalized -pain control: tylenol, norco, has flexeril for spasms -bowel regimen: miralax, senna, docusate -hgb 8.0, received 1u PRBC, likely post-op anemia and fracture bleeding, wound is C/D/I # electrolyte disturbances -hypokalemia: Continue replacement -hypocalcemia:? on calcium/vit D, has recieved calcium IV. # chronic conditions -CKD stage 4: avoid nephrotoxic agents, Cr 1.7 -epilepsy: phenobarbital -GERD: protonix -hypoparathyroidism: chronic hypocalcemia, on supplement Diet:??Regular DVT prophylaxis:?Lovenox lower dose 30mg for 30 days Code status:??DNR Disposition:?swing bed DS: Summary Hospital Course Reason for hospitalization: Left hip fracture Hospital Course: Patient is a 68-year-old male with past medical history of intellectual disability, history of seizure, CKD, hypoparathyroidism who was transferred from [facility] for [facility]ics after a ground level fall leading to a left hip fracture. It appears the fracture may have been mechanical fall. On imaging he was found to have left intratrochanteric hip fracture. Dr. Zavala orthopedics performed an ORIF with cephalomedullary nail, left hip intertrochanteric fracture on 04/16/23. The procedure went well. Patient work well physical therapy and recommendation is for swing bed for ongoing therapies. Patient has some postop anemia fracture bleeding, required 1 unit packed red blood cells, at discharge hemoglobin stable 8.0. Patient has chronic hypokalemia, we continued to replace his potassium. He has some hypocalcemia secondary to history of his hypoparathyroidism, he receive some calcium supplementation. Recommendations from Orthopedic team history daily dressing changes, stable removal in 2 weeks, office follow-up in 4-6 weeks with x-rays. Patient is to be weight-bearing as tolerated with walker. Recommendations for Lovenox for 3 days total, will give 30 mg dose (of note patient does have some chronic thrombocytopenia around 80-100k plt). Pain control he has been given prescription of [place], Flexeril for spasm. Bowel regimen with MiraLax, senna, docusate. At time of discharge patient's labs are stable, vitals stable, patient is stable for swing bed discharge. Patient understands and agrees with plan. Status at Discharge Cognitive/behavioral status at discharge: stable at baseline Time Spent with Patient Time attestation: Total time spent providing and/or coordinating discharge services: 35 min Exam Narrative: - GENERAL:? Pleasant male with intellectual disability in no acute distress. - EYES: EOMI. Anicteric. - HENT: Moist mucous membranes. - LUNGS: Clear to auscultation bilaterally, no wheezing, rhonchi, or rales. - CARDIOVASCULAR: Regular rate and rhythm. No murmur. No JVD. - ABDOMEN: Soft, non-tender and non-distended. No palpable masses. - EXTREMITIES: No edema. Peripheral pulses 2+. Non-tender. LLE dressing C/D/I - NEUROLOGIC: No focal neurological deficits. CN II-XII grossly intact. - PSYCHIATRIC: Awake, Alert and oriented x 3. Appropriate mood and affect. - SKIN: No rashes or lesions. Warm. DS: Data Data Completed and Pending Labs on day of discharge: Labs from last 24 hours 04/20/23
[2023-04-20 12:15] LABS: SARS-CoV-2 RNA PCR Negative (Negative)
[2023-04-20 14:37] VITALS: BP 125/62; PULSE 90; RESP 18; TEMP 36.8; O2SAT 100
[2023-04-22 16:33] LABS: Ionized Calcium 3.5 mg/dL (4.7-5.5)
== END 2023-04-20 16:30 | disposition swing bed (61) | DRG 481 ==
PROVIDERS: Orthopaedic Surgery; Physician Assistant; Physician Assistant Surgical; Admitting Provider Student in an Organized Health Care Education/Training Program; PCP Nurse Practitioner Family; Visit Provider Student in an Organized Health Care Education/Training Program
PROC: 0QS736Z Reposition Left Upper Femur with Intramedullary Internal Fixation Device, Percutaneous Approach (ICD-10-PCS; CPT 27245; principal; 2023-04-16 15:30)
DX: S72.142A Displaced intertrochanteric fracture of left femur, initial encounter for closed fracture (principal); F79 Unspecified intellectual disabilities; D64.89 Other specified anemias; D63.1 Anemia in chronic kidney disease; E21.3 Hyperparathyroidism, unspecified; E87.6 Hypokalemia; E55.9 Vitamin D deficiency, unspecified; F17.210 Nicotine dependence, cigarettes, uncomplicated; G40.909 Epilepsy, unspecified, not intractable, without status epilepticus; K21.9 Gastro-esophageal reflux disease without esophagitis; N18.4 Chronic kidney disease, stage 4 (severe); W18.30XA Fall on same level, unspecified, initial encounter; Z90.49 Acquired absence of other specified parts of digestive tract; Z98.41 Cataract extraction status, right eye; Z98.42 Cataract extraction status, left eye; Z66 Do not resuscitate; Z23 Encounter for immunization; Z20.822 Contact with and (suspected) exposure to COVID-19
CPT/HCPCS: 36415; 36430; 80048; 82330; 83735; 85025; 85027; 85055; 86850; 86900; 86901; 86923; 87635; 90471; 90694; 97110; 97116; 97161; 97166; 97530; 97535; 99199; A9270; C1713; C1769; G0008; G0378; G0379; J0612; J0613; J0690; J1650; J2371; J2405; J2704; J3010; J3480; J7040; J7050; J7120; P9016

== ENCOUNTER 2023-04-20 17:15 | Inpatient (IN) | payer MEDICARE, MEDICAID, SELFPAY ==
[2023-04-20 17:20] VITALS: BP 133/69; PULSE 91; RESP 18; TEMP 36.8; O2SAT 100
--- NOTE | 2023-04-20 17:20 | PC.NURSE ---
Patient arrived to unit via stretcher, accompanied by EMS from [facility]. Patient's sister, and POA present for admission. Education provided on fall precautions, bed controls, call light, visiting hours, isolation policies, dietary practices and rapid response system. Patient has no valuable noted other than 1 shirt, pants, under shirt, shoes and socks. Sister to bring in cell phone tomorrow. Patient and his sister voiced understanding of education. POA requests call prior to any medication changes. Patient has already had flu shot this year. Patient's sister has informed sports writer that patient does not wish to have a renal consult.
[2023-04-20 17:35] VITALS: BMI 24.0
[2023-04-20 20:00] VITALS: PULSE 91; RESP 18; O2SAT 100
[2023-04-20] MEDS: PHENobarbital (*CRX) 100 MG TABLET PO (21:16)
[2023-04-21] VITALS: BP 108/51; PULSE 94; RESP 16; TEMP 36.5; O2SAT 99
--- NOTE | 2023-04-21 04:57 | PC.NURSE ---
On 04/21/23, the EXPEDITIONARY FIGHTING VEHICLE CREWMAN, Becca Blandon, provided care and completed [facility] documentation on this patient. I have reviewed the EXPEDITIONARY FIGHTING VEHICLE CREWMAN's documentation and agree with the findings.
[2023-04-21 08:00] VITALS: BP 113/55; PULSE 95; RESP 14; TEMP 36.8; O2SAT 98
[2023-04-21] MEDS: CALCIUM/VITAMIN D 250 MG TABLET 4 TABLET PO (08:49)
[2023-04-21] MEDS: POTASSIUM CHLORIDE 20 MEQ ER TABLET PO (08:49)
[2023-04-21] MEDS: OPTI-GEN TAB 1 TABLET PO (08:49)
[2023-04-21] MEDS: polyethylene glycoL 3350 17 GM POWD.PACK PO (08:49)
[2023-04-21] MEDS: SENNA/DOCUSATE SODIUM TABLET 2 TAB PO ×2 (08:49→16:58)
[2023-04-21] MEDS: PANTOPRAZOLE 40 MG TABLET PO (08:50)
[2023-04-21] MEDS: CYANOCOBALAMIN 1,000 MCG TABLET 1000 MCG PO (08:50)
--- NOTE | 2023-04-21 10:25 | PM.IMHP ---
H&P: HPI History of Present Illness Date/Time: 04/21/23 10:25 Chief Complaint: Rehabilitation s/p left intertrochanteric femur fracture Narrative: this is a 68-year-old male patient with a history of intellectual delay, CKD stage 4, epilepsy, GERD, hypoparathyroidism, hypocalcemia who is admitted to swing bed program for rehabilitation status post fall with left intertrochanteric femur fracture status post gamma nail. Patient had procedure at [facility] by Dr. Zavala on 04/16 complicated by postoperative hematoma with associated thrombocytopenia. Patient received 1 unit PRBCs on 04/19 and had stable hemoglobin and hematocrit post transfusion 04/20. while hospitalized patient had some improvement in his CKD possibly related to better food intake and fluid intake. Patient continued to have hypokalemia and hypocalcemia despite replacement. Patient was refusing some medications that he does not chronically take at home. Pain is well controlled. Patient is participating with therapy. No anticoagulation due to thrombocytopenia and postoperative bleeding. Review of Systems Review of Systems: All systems reviewed & are unremarkable except as noted in HPI and below PMFSH Past Medical History Medical History Chronic anemia Chronic kidney disease, stage 4 (severe) Epilepsy GERD (gastroesophageal reflux disease) Hypercalcemia Hypoparathyroidism Seizure disorder Tongue abnormality the patient was tongue tied until his frenulum was clipped Surgical History Surgical History History of appendectomy (2009) History of bilateral cataract extraction History of hernia repair 1977 & 1961 History of repair of congenital cleft palate Family History Family History Mother Diabetes mellitus Renal failure Hypertension Father Alzheimer's dementia Other Family history of type 2 diabetes mellitus Social History Social History Social History: Surrogate medical decision maker: Pam Perez, sister. Code status: Full code. Smoking packs per day: 1 Smoking cigarettes per day: 20.0 Years smoked: 3 Smoking pack-years: 3.00 Smoking status: Current every day smoker Tobacco type: cigarettes Second hand tobacco smoke exposure: Yes Smoking end date: 04/20/23 Alcohol intake: never Substance use: never Substance use type: does not use Lack of Transportation: No Lack of Food: Never True Current Housing: I Have Housing Concerned About Future Housing: No Difficulty Paying Gas/Electric Bills: No Difficulty Paying for Meds: No Currently Unemployed: No Education: High School Diploma/GED Difficulty w/ Childcare or Family Care: No Living arrangements: alone Additional living arrangements comments: The patient lives alone in his own apartment. Occupation/Education: unemployed Spiritual care concerns: No Meds Home Medications and Allergies Home Medications Medication Instructions Recorded Confirmed Type calcium carbonate 600 mg-vitamin 1,200 tablet PO DAILY 04/15/23 04/20/23 History D3 5 mcg (200 unit) tablet mecobalamin (vitamin B12) 1,000 1,000 mcg sublingual DAILY 04/15/23 04/20/23 History mcg disintegrating tablet,sublingual mv-mn-folic 200 mcg-vit K 15 1 cap PO DAILY 04/15/23 04/20/23 History mcg-lutein 5 mg-zeaxanthin 1 mg capsule (PreserVision AREDS 2 Plus Multivit) omeprazole 20 mg capsule,delayed 20 mg PO DAILY 04/15/23 04/20/23 History release phenobarbital 100 mg tablet 100 mg PO HS 04/15/23 04/20/23 History potassium chloride 20 mEq 20 meq PO DAILY 04/15/23 04/20/23 History tablet,extended release(part/cryst) cyclobenzaprine 10 mg tablet 10 mg PO Q8H PRN Muscle Spasm 7 04/20/23 04/20/23 Rx days #15 tabs e
--- NOTE | 2023-04-21 13:29 | PC.NURSE ---
Pt refuses the SCD boots. He thinks they get to tight.
[2023-04-21 16:00] VITALS: BP 106/51; PULSE 83; RESP 16; TEMP 36.4; O2SAT 99
--- NOTE | 2023-04-21 17:13 | PC.NURSE ---
Patient up in chair watching TV and working with therapy. Patient pleasant and talkative. Denies any c/o. Call light and belongings within reach.
[2023-04-21] MEDS: PHENobarbital (*CRX) 100 MG TABLET PO (21:02)
[2023-04-22] VITALS: BP 127/64; PULSE 89; RESP 16; TEMP 36.9; O2SAT 98
[2023-04-22] MEDS: HYDROcodone/acetaminophen (*CRX) 5-325 MG TABLET 2 TAB PO (03:20)
[2023-04-22 05:33] LABS: Basophils Absolute Auto 0.03 K/mm3 (0.00-0.10); Basophils Percent Auto 0.5 % (0.0-1.0); Eosinophils Absolute Auto 0.22 K/mm3 (0.02-0.50); Eosinophils Percent Auto 3.8 % (1.0-6.0); Hemoglobin 8.5 g/dL (12.4-15.3); Immature Granulocyte Absolute 0.03 K/mm3 (0.00-0.00); Immature Granulocyte Percent A 0.5 % (0.0-0.0); Lymphocytes Absolute Auto 0.77 K/mm3 (1.10-4.50); Lymphocytes Percent Auto 13.3 % (18.0-42.0); Mean Corpuscular HGB Conc 32.7 g/dL (32.0-36.0); Mean Corpuscular Hemoglobin 31.3 pg (27.0-31.0); Mean Corpuscular Volume 95.6 fL (78.0-102.0); Mean Platelet Volume 10.9 fl (8.7-11.0); Monocytes Absolute Auto 0.48 K/mm3 (0.10-0.90); Monocytes Percent Auto 8.3 % (2.0-11.0); Neutrophils Absolute Auto 4.3 K/mm3 (1.7-7.2); Neutrophils Percent Auto 73.6 % (50.0-70.0); Platelet Count Result 105 K/mm3 (150-420); Red Blood Count 2.72 M/mm3 (4.70-6.10); Red Cell Distribution Width 13.7 % (11.6-14.4); White Blood Count 5.8 K/mm3 (4.8-10.8)
[2023-04-22 06:07] LABS: Alanine Aminotransferase 14 U/L (16-63); Albumin Level 2.6 g/dL (3.4-5.0); Alkaline Phosphatase 90 U/L (46-116); Anion Gap 11 mmol/L (8-16); Aspartate Amino Transferase 29 U/L (15-37); Bilirubin,Total 0.5 mg/dL (0.00-1.00); Blood Urea Nitrogen 23 mg/dL (7-18); Calcium 6.2 mg/dL (8.5-10.1); Carbon Dioxide 26 mmol/L (21-32); Chloride 102 mmol/L (98-108); Estimated CRCL calculation 37 ml/min; Estimated Glomerular Filt Rate 41; Glucose 96 mg/dL (70-99); Osmolality Calculated 291 mOsm/kg (285-295); Potassium 3.7 mmol/L (3.5-5.1); Sodium 139 mmol/L (136-145); Total Protein 6.3 g/dL (6.4-8.2)
[2023-04-22 08:00] VITALS: BP 130/62; PULSE 88; RESP 14; TEMP 36.8; O2SAT 98
[2023-04-22] MEDS: OPTI-GEN TAB 1 TABLET PO (08:46)
[2023-04-22] MEDS: CALCIUM/VITAMIN D 250 MG TABLET 4 TABLET PO (08:46)
[2023-04-22] MEDS: POTASSIUM CHLORIDE 20 MEQ ER TABLET PO (08:47)
[2023-04-22] MEDS: CYANOCOBALAMIN 1,000 MCG TABLET 1000 MCG PO (08:47)
[2023-04-22] MEDS: PANTOPRAZOLE 40 MG TABLET PO (08:47)
[2023-04-22] MEDS: HYDROcodone/acetaminophen (*CRX) 5-325 MG TABLET 1 TAB PO ×2 (14:46→20:25)
[2023-04-22 16:35] VITALS: BP 103/60; PULSE 89; RESP 16; TEMP 36.6; O2SAT 99
[2023-04-22] MEDS: SENNA/DOCUSATE SODIUM TABLET 2 TAB PO (17:21)
[2023-04-22] MEDS: PHENobarbital (*CRX) 100 MG TABLET PO (20:25)
[2023-04-22 23:14] VITALS: BP 129/61; PULSE 86; RESP 15; TEMP 37.1; O2SAT 95
[2023-04-23 08:00] VITALS: BP 135/60; PULSE 82; RESP 14; TEMP 36.8; O2SAT 98
[2023-04-23] MEDS: CALCIUM/VITAMIN D 250 MG TABLET 4 TABLET PO (09:29)
[2023-04-23] MEDS: SENNA/DOCUSATE SODIUM TABLET 2 TAB PO ×2 (09:30→16:19)
[2023-04-23] MEDS: HYDROcodone/acetaminophen (*CRX) 5-325 MG TABLET 1 TAB PO ×2 (09:30→19:06)
[2023-04-23] MEDS: POTASSIUM CHLORIDE 20 MEQ ER TABLET PO (09:31)
[2023-04-23] MEDS: PANTOPRAZOLE 40 MG TABLET PO (09:31)
[2023-04-23] MEDS: CYANOCOBALAMIN 1,000 MCG TABLET 1000 MCG PO (09:31)
[2023-04-23] MEDS: OPTI-GEN TAB 1 TABLET PO (09:32)
[2023-04-23 15:48] VITALS: BP 96/46; PULSE 94; RESP 16; TEMP 36.6; O2SAT 98
[2023-04-23] MEDS: PHENobarbital (*CRX) 100 MG TABLET PO (20:52)
[2023-04-23 23:18] VITALS: BP 132/60; PULSE 84; RESP 18; TEMP 36.6; O2SAT 96
--- NOTE | 2023-04-24 04:30 | PC.NURSE ---
Pt assisted thru night c SBA and use of gait belt and walker to BR, he walks well on own. Pt changed night pants due to accidental soiling of pants. Warm blankets given, call bunch at pt side.
[2023-04-24 08:00] VITALS: BP 130/68; PULSE 83; RESP 16; TEMP 36.6; O2SAT 99
[2023-04-24] MEDS: CALCIUM/VITAMIN D 250 MG TABLET 4 TABLET PO (08:48)
[2023-04-24] MEDS: OPTI-GEN TAB 1 TABLET PO (08:48)
[2023-04-24] MEDS: POTASSIUM CHLORIDE 20 MEQ ER TABLET PO (08:49)
[2023-04-24] MEDS: ACETAMINOPHEN 325 MG TABLET 650 MG PO (08:50)
[2023-04-24] MEDS: CYANOCOBALAMIN 1,000 MCG TABLET 1000 MCG PO (08:51)
[2023-04-24] MEDS: SENNA/DOCUSATE SODIUM TABLET 2 TAB PO ×2 (08:51→17:21)
[2023-04-24] MEDS: PANTOPRAZOLE 40 MG TABLET PO (08:51)
[2023-04-24 16:00] VITALS: BP 131/63; PULSE 83; RESP 16; TEMP 36.4; O2SAT 100
[2023-04-24] MEDS: HYDROcodone/acetaminophen (*CRX) 5-325 MG TABLET 1 TAB PO (17:26)
--- NOTE | 2023-04-24 18:10 | PC.NURSE ---
Dressing changed to surgical site. No s/s infection noted. Patient tolerated well.
[2023-04-24 20:00] VITALS: PULSE 83; RESP 16; O2SAT 100
[2023-04-24] MEDS: CYCLOBENZAPRINE HCL 10 MG TABLET PO (21:27)
[2023-04-24] MEDS: HYDROcodone/acetaminophen (*CRX) 5-325 MG TABLET 2 TAB PO (21:27)
[2023-04-24] MEDS: PHENobarbital (*CRX) 100 MG TABLET PO (21:27)
[2023-04-25] VITALS: BP 103/53; PULSE 83; RESP 16; TEMP 36.6; O2SAT 98
[2023-04-25 05:25] LABS: Hematocrit 25.1 % (37.0-46.0); Hemoglobin 8.2 g/dL (12.4-15.3); Mean Corpuscular HGB Conc 32.7 g/dL (32.0-36.0); Mean Corpuscular Hemoglobin 31.4 pg (27.0-31.0); Mean Corpuscular Volume 96.2 fL (78.0-102.0); Mean Platelet Volume 10.6 fl (8.7-11.0); Platelet Count Result 121 K/mm3 (150-420); Red Blood Count 2.61 M/mm3 (4.70-6.10); Red Cell Distribution Width 13.8 % (11.6-14.4); White Blood Count 4.5 K/mm3 (4.8-10.8)
[2023-04-25 08:00] VITALS: BP 125/68; PULSE 84; RESP 16; TEMP 36.6; O2SAT 97
[2023-04-25] MEDS: CALCIUM/VITAMIN D 250 MG TABLET 4 TABLET PO (08:43)
[2023-04-25] MEDS: ACETAMINOPHEN 325 MG TABLET 650 MG PO (08:45)
[2023-04-25] MEDS: PANTOPRAZOLE 40 MG TABLET PO (08:45)
[2023-04-25] MEDS: POTASSIUM CHLORIDE 20 MEQ ER TABLET PO (08:45)
[2023-04-25] MEDS: CYANOCOBALAMIN 1,000 MCG TABLET 1000 MCG PO (08:45)
[2023-04-25] MEDS: OPTI-GEN TAB 1 TABLET PO (08:45)
[2023-04-25] MEDS: SENNA/DOCUSATE SODIUM TABLET 2 TAB PO ×2 (08:46→16:56)
[2023-04-25 16:00] VITALS: BP 117/54; PULSE 86; RESP 16; TEMP 36.8; O2SAT 99
--- NOTE | 2023-04-25 17:59 | P.PNCROSS_ITS ---
Event Note Event Note Event Note: Care coordination meeting today and patient will stay for another week of teena stahl. Platelets have improved to 121 so I have restarted his lovenox for the morning. Will need a total of 30 days of anticoagulation from his surgery.
[2023-04-25 20:00] VITALS: PULSE 86; RESP 16; O2SAT 99
[2023-04-25] MEDS: HYDROcodone/acetaminophen (*CRX) 5-325 MG TABLET 1 TAB PO (20:41)
[2023-04-25] MEDS: PHENobarbital (*CRX) 100 MG TABLET PO (20:42)
[2023-04-26] VITALS: BP 133/61; PULSE 86; RESP 16; TEMP 36.3; O2SAT 97
--- NOTE | 2023-04-26 00:34 | PC.NURSE ---
On 04/26/23, the PLANNING COORDINATOR, [ Jose], provided care and completed [facility] documentation on this patient. I have reviewed the PLANNING COORDINATOR's documentation and agree with the findings.
[2023-04-26 08:00] VITALS: BP 153/63; PULSE 82; RESP 14; TEMP 36.4; O2SAT 98
[2023-04-26] MEDS: SENNA/DOCUSATE SODIUM TABLET 2 TAB PO ×2 (09:30→16:56)
[2023-04-26] MEDS: CALCIUM/VITAMIN D 250 MG TABLET 4 TABLET PO (09:30)
[2023-04-26] MEDS: POTASSIUM CHLORIDE 20 MEQ ER TABLET PO (09:31)
[2023-04-26] MEDS: OPTI-GEN TAB 1 TABLET PO (09:31)
[2023-04-26] MEDS: CYANOCOBALAMIN 1,000 MCG TABLET 1000 MCG PO (09:32)
[2023-04-26] MEDS: PANTOPRAZOLE 40 MG TABLET PO (09:33)
[2023-04-26 15:52] VITALS: BP 117/61; PULSE 83; RESP 16; TEMP 36.7; O2SAT 100
[2023-04-26] MEDS: PHENobarbital (*CRX) 100 MG TABLET PO (20:03)
[2023-04-26] MEDS: HYDROcodone/acetaminophen (*CRX) 5-325 MG TABLET 1 TAB PO (20:30)
[2023-04-26] MEDS: CYCLOBENZAPRINE HCL 10 MG TABLET PO (20:31)
[2023-04-26 23:04] VITALS: BP 112/59; PULSE 76; RESP 15; TEMP 36.5; O2SAT 98
[2023-04-27 08:00] VITALS: BP 115/63; PULSE 78; RESP 16; TEMP 36.6; O2SAT 98
[2023-04-27] MEDS: POTASSIUM CHLORIDE 20 MEQ ER TABLET PO (09:16)
[2023-04-27] MEDS: CALCIUM/VITAMIN D 250 MG TABLET 4 TABLET PO (09:16)
[2023-04-27] MEDS: OPTI-GEN TAB 1 TABLET PO (09:16)
[2023-04-27] MEDS: SENNA/DOCUSATE SODIUM TABLET 2 TAB PO (09:16)
[2023-04-27] MEDS: CYANOCOBALAMIN 1,000 MCG TABLET 1000 MCG PO (09:16)
[2023-04-27] MEDS: PANTOPRAZOLE 40 MG TABLET PO (09:17)
[2023-04-27] MEDS: HYDROcodone/acetaminophen (*CRX) 5-325 MG TABLET 1 TAB PO ×2 (10:26→18:40)
[2023-04-27 16:00] VITALS: BP 132/80; PULSE 88; RESP 16; TEMP 36.5; O2SAT 99
[2023-04-27] MEDS: PHENobarbital (*CRX) 100 MG TABLET PO (20:33)
[2023-04-27 23:02] VITALS: BP 119/52; PULSE 79; RESP 16; TEMP 36.4; O2SAT 97
[2023-04-28] MEDS: HYDROcodone/acetaminophen (*CRX) 5-325 MG TABLET 1 TAB PO ×2 (05:20→21:19)
[2023-04-28 07:50] VITALS: BP 131/64; PULSE 79; RESP 16; TEMP 36.4; O2SAT 98
[2023-04-28] MEDS: CYANOCOBALAMIN 1,000 MCG TABLET 1000 MCG PO (08:07)
[2023-04-28] MEDS: SENNA/DOCUSATE SODIUM TABLET 2 TAB PO ×2 (08:07→16:37)
[2023-04-28] MEDS: CALCIUM/VITAMIN D 250 MG TABLET 4 TABLET PO (08:07)
[2023-04-28] MEDS: OPTI-GEN TAB 1 TABLET PO (08:09)
[2023-04-28] MEDS: POTASSIUM CHLORIDE 20 MEQ ER TABLET PO (08:09)
[2023-04-28] MEDS: PANTOPRAZOLE 40 MG TABLET PO (08:09)
[2023-04-28] MEDS: ENOXAPARIN 30 MG/0.3 ML SYRINGE SUB-Q (08:09)
[2023-04-28 09:41] LABS: Basophils Absolute Auto 0.07 K/mm3 (0.00-0.10); Basophils Percent Auto 1.1 % (0.0-1.0); Eosinophils Absolute Auto 0.17 K/mm3 (0.02-0.50); Eosinophils Percent Auto 2.7 % (1.0-6.0); Hematocrit 28.6 % (37.0-46.0); Hemoglobin 9.1 g/dL (12.4-15.3); Immature Granulocyte Absolute 0.03 K/mm3 (0.00-0.00); Immature Granulocyte Percent A 0.5 % (0.0-0.0); Lymphocytes Absolute Auto 0.81 K/mm3 (1.10-4.50); Mean Corpuscular HGB Conc 31.8 g/dL (32.0-36.0); Mean Corpuscular Volume 97.3 fL (78.0-102.0); Mean Platelet Volume 10.2 fl (8.7-11.0); Monocytes Percent Auto 8.1 % (2.0-11.0); Neutrophils Absolute Auto 4.6 K/mm3 (1.7-7.2); Neutrophils Percent Auto 74.6 % (50.0-70.0); Platelet Count Result 192 K/mm3 (150-420); Red Blood Count 2.94 M/mm3 (4.70-6.10); White Blood Count 6.2 K/mm3 (4.8-10.8)
--- NOTE | 2023-04-28 10:31 | PC.NURSE ---
WHITE WASHER removed dressing to surgical site and was going to leave it CONVERTING OPERATOR, but patient insisted on having something to cover it. Band-aids applied.
--- NOTE | 2023-04-28 14:13 | PM.IMPN ---
Progress Note: A&P Assessment and Plan (1) Physical debility: Code(s): R53.81 - Other malaise Status: Acute Assessment and Plan: Admit to Swing Bed program for PT/OT rehabilitation Doing well with therapy. Working on stairs. (2) Intertrochanteric fracture of left femur: Qualifiers: Encounter type: subsequent encounter Fracture type: closed Fracture alignment: displaced Fracture healing: with routine healing Qualified Code(s): S72.142D - Displaced intertrochanteric fracture of left femur, subsequent encounter for closed fracture with routine healing Code(s): S72.142A - Displaced intertrochanteric fracture of left femur, initial encounter for closed fracture Status: Acute Assessment and Plan: S/P gamma nail, swing bed for PT/OT rehab (3) Chronic kidney disease, stage 4 (severe): Code(s): N18.4 - Chronic kidney disease, stage 4 (severe) Status: Acute Assessment and Plan: Slight improvement during hospitalization, avoid nephrotoxic medication, ensure adequate hydration (4) Chronic anemia: Code(s): D64.9 - Anemia, unspecified Status: Acute Assessment and Plan: Thrombocytopenia preventing anticoagulant use as patient had post operative hematoma requiring transfusion before discharge. Check CBC every 3-5 days while admitted. 04/28 hgb is 9.1/28.6, plt 192 Restarted lovenox on 04/[address] Zavala if we can adjust his anticoagulant regimen to something PO as patient is not comfortable with injection at home. (5) Hypocalcemia: Code(s): E83.51 - Hypocalcemia Status: Acute Assessment and Plan: Related to hypoparathyroidism and chronic Vitamin D deficiency (6) Hypoparathyroidism: Code(s): E20.9 - Hypoparathyroidism, unspecified Status: Acute Assessment and Plan: Related to hypoparathyroidism and chronic Vitamin D deficiency (7) Seizure disorder: Code(s): G40.909 - Epilepsy, unspecified, not intractable, without status epilepticus Status: Acute Assessment and Plan: Seizure free for years, continue home medications (8) Hypertension: Code(s): I10 - Essential (primary) hypertension Status: Acute Assessment and Plan: Stable, blood pressure reviewed on 04/21. Continue home medications Blood pressures stable and reviewed on 04/28 (9) Vitamin D deficiency due to chronic kidney disease: Code(s): E55.9 - Vitamin D deficiency, unspecified; N18.9 - Chronic kidney disease, unspecified Status: Acute Assessment and Plan: Related to hypoparathyroidism and chronic Vitamin D deficiency due to kidney disease (10) Thrombocytopenia: Code(s): D69.6 - Thrombocytopenia, unspecified Status: Acute Assessment and Plan: Idiopathic. Thrombocytopenia preventing anticoagulant use as patient had post operative hematoma requiring transfusion before discharge. Check CBC every 3-5 days while admitted. Plan Feeding:regular diet Analgesia:norco and tylenol Thromboembolic prophylaxis: lovenox Ulcer prophylaxis: protonix Glycemic control: na Bowel regimen: miralax Lines: PIV Antibiotics: na Disposition:Eventually back home Subjective Date/time seen: 04/28/23 14:13 Interval history: HPI obtained from the chart, Chief Complaint: Rehabilitation s/p left intertrochanteric femur fracture Narrative: ?this is a 68-year-old male patient with a history of intellectual delay, CKD stage 4, epilepsy, GERD, hypoparathyroidism, hypocalcemia who is admitted to swing bed program for rehabilitation status post fall with left? intertrochanteric femur fracture status post gamma nail.? Patient had procedure at [facility] by Dr. Zavala on 04/16 complicated by postoperative hematoma with associated thrombocytopenia.? Patient received 1 unit PRBCs on 04/19 and had stable hemoglobin and hematocrit post transfusion 04/20.? while hospitalized patient had some
[2023-04-28 16:00] VITALS: BP 133/57; PULSE 84; RESP 16; TEMP 36.6; O2SAT 96
[2023-04-28] MEDS: PHENobarbital (*CRX) 100 MG TABLET PO (21:19)
[2023-04-29] VITALS: BP 144/74; PULSE 74; RESP 16; TEMP 36.6; O2SAT 99
[2023-04-29 08:00] VITALS: BP 115/53; PULSE 79; RESP 16; TEMP 36.7; O2SAT 100
[2023-04-29] MEDS: CALCIUM/VITAMIN D 250 MG TABLET 4 TABLET PO (09:12)
[2023-04-29] MEDS: OPTI-GEN TAB 1 TABLET PO (09:12)
[2023-04-29] MEDS: POTASSIUM CHLORIDE 20 MEQ ER TABLET PO (09:12)
[2023-04-29] MEDS: SENNA/DOCUSATE SODIUM TABLET 2 TAB PO ×2 (09:13→16:48)
[2023-04-29] MEDS: PANTOPRAZOLE 40 MG TABLET PO (09:14)
[2023-04-29] MEDS: ENOXAPARIN 30 MG/0.3 ML SYRINGE SUB-Q (09:14)
[2023-04-29] MEDS: CYANOCOBALAMIN 1,000 MCG TABLET 1000 MCG PO (09:14)
--- NOTE | 2023-04-29 10:30 | PC.NURSE ---
Dressing changed to surgical sites. No s/s infection. Well approximated with no drainage.
[2023-04-29 16:00] VITALS: BP 147/68; PULSE 95; RESP 16; TEMP 36.6; O2SAT 99
[2023-04-29 19:55] VITALS: PULSE 95; RESP 16; O2SAT 99
[2023-04-29] MEDS: PHENobarbital (*CRX) 100 MG TABLET PO (20:44)
[2023-04-29] MEDS: HYDROcodone/acetaminophen (*CRX) 5-325 MG TABLET 1 TAB PO (20:44)
--- NOTE | 2023-04-29 22:00 | PC.NURSE ---
On 04/30/23, the RATE MANAGER, Becca Blandon, provided care and completed [facility] documentation on this patient. I have reviewed the RATE MANAGER's documentation and agree with the findings.
[2023-04-30] VITALS: BP 156/76; PULSE 82; RESP 16; TEMP 36.3; O2SAT 99
--- NOTE | 2023-04-30 07:29 | P.PNCROSS_ITS ---
Event Note Event Note Event Note: 15 felice removed from 3 surgical incisions on left hip. Incisions clean dry a nd intact. Steri strips applied by RN for reinforcement but site appears wonderful. No signs of infection or drainage. No major bruising and no swelling.
[2023-04-30 08:00] VITALS: BP 144/88; PULSE 86; RESP 18; TEMP 36.6; O2SAT 98
[2023-04-30] MEDS: ENOXAPARIN 30 MG/0.3 ML SYRINGE SUB-Q (08:11)
[2023-04-30] MEDS: SENNA/DOCUSATE SODIUM TABLET 2 TAB PO (08:12)
[2023-04-30] MEDS: POTASSIUM CHLORIDE 20 MEQ ER TABLET PO (08:12)
[2023-04-30] MEDS: OPTI-GEN TAB 1 TABLET PO (08:12)
[2023-04-30] MEDS: CALCIUM/VITAMIN D 250 MG TABLET 4 TABLET PO (08:12)
[2023-04-30] MEDS: PANTOPRAZOLE 40 MG TABLET PO (08:13)
[2023-04-30] MEDS: CYANOCOBALAMIN 1,000 MCG TABLET 1000 MCG PO (08:13)
[2023-04-30 15:52] VITALS: BP 112/75; PULSE 78; RESP 18; TEMP 36.6; O2SAT 100
[2023-04-30 20:00] VITALS: PULSE 78; RESP 18; O2SAT 100
[2023-04-30] MEDS: CYCLOBENZAPRINE HCL 10 MG TABLET PO (20:48)
[2023-04-30] MEDS: PHENobarbital (*CRX) 100 MG TABLET PO (21:07)
[2023-05-01] VITALS: BP 130/62; PULSE 84; RESP 18; TEMP 36.3; O2SAT 99
--- NOTE | 2023-05-01 06:18 | PC.NURSE ---
On 05/01/23, the CONTRACTING OFFICER, [Becca Blandon ], provided care and completed [facility] documentation on this patient. I have reviewed the CONTRACTING OFFICER's documentation and agree with the findings.
[2023-05-01 08:00] VITALS: BP 128/74; PULSE 78; RESP 17; TEMP 36.9; O2SAT 99
[2023-05-01] MEDS: ENOXAPARIN 30 MG/0.3 ML SYRINGE SUB-Q (09:54)
[2023-05-01] MEDS: CALCIUM/VITAMIN D 250 MG TABLET 4 TABLET PO (09:54)
[2023-05-01] MEDS: POTASSIUM CHLORIDE 20 MEQ ER TABLET PO (09:55)
[2023-05-01] MEDS: PANTOPRAZOLE 40 MG TABLET PO (09:55)
[2023-05-01] MEDS: SENNA/DOCUSATE SODIUM TABLET 2 TAB PO (09:55)
[2023-05-01] MEDS: CYANOCOBALAMIN 1,000 MCG TABLET 1000 MCG PO (09:55)
[2023-05-01] MEDS: OPTI-GEN TAB 1 TABLET PO (09:55)
[2023-05-01 16:00] VITALS: BP 124/65; PULSE 90; RESP 17; TEMP 36.4; O2SAT 99
[2023-05-01 19:40] VITALS: PULSE 90; RESP 17; O2SAT 99
[2023-05-01] MEDS: PHENobarbital (*CRX) 100 MG TABLET PO (21:00)
[2023-05-01] MEDS: HYDROcodone/acetaminophen (*CRX) 5-325 MG TABLET 1 TAB PO (21:00)
[2023-05-01] MEDS: CYCLOBENZAPRINE HCL 10 MG TABLET PO (21:00)
[2023-05-02] VITALS: BP 128/56; PULSE 85; RESP 16; TEMP 36.5; O2SAT 99
[2023-05-02 08:00] VITALS: BP 138/70; PULSE 88; RESP 17; TEMP 36.6; O2SAT 99
[2023-05-02] MEDS: POTASSIUM CHLORIDE 20 MEQ ER TABLET PO (09:38)
[2023-05-02] MEDS: OPTI-GEN TAB 1 TABLET PO (09:38)
[2023-05-02] MEDS: PANTOPRAZOLE 40 MG TABLET PO (09:39)
[2023-05-02] MEDS: ASPIRIN 81 MG ENTERIC TABLET PO ×2 (09:39→16:45)
[2023-05-02] MEDS: CYANOCOBALAMIN 1,000 MCG TABLET 1000 MCG PO (09:39)
[2023-05-02] MEDS: CALCIUM/VITAMIN D 250 MG TABLET 4 TABLET PO (09:39)
[2023-05-02 16:00] VITALS: BP 118/72; PULSE 87; RESP 16; TEMP 37; O2SAT 99
[2023-05-02] MEDS: PHENobarbital (*CRX) 100 MG TABLET PO (20:24)
[2023-05-02] MEDS: ACETAMINOPHEN 325 MG TABLET 650 MG PO (20:24)
[2023-05-03] VITALS: BP 130/67; PULSE 100; RESP 20; TEMP 35.9; O2SAT 100
--- NOTE | 2023-05-03 04:44 | PC.NURSE ---
On 05/03/23, the CLOTH WORKER, [Shahla Trujillo ], provided care and completed [facility] documentation on this patient. I have reviewed the CLOTH WORKER's documentation and agree with the findings.
[2023-05-03 07:35] VITALS: BP 130/76; PULSE 90; RESP 16; TEMP 36.1; O2SAT 98
[2023-05-03] MEDS: OPTI-GEN TAB 1 TABLET PO (08:46)
[2023-05-03] MEDS: POTASSIUM CHLORIDE 20 MEQ ER TABLET PO (08:46)
[2023-05-03] MEDS: CYANOCOBALAMIN 1,000 MCG TABLET 1000 MCG PO (08:47)
[2023-05-03] MEDS: ASPIRIN 81 MG ENTERIC TABLET PO (08:47)
[2023-05-03] MEDS: PANTOPRAZOLE 40 MG TABLET PO (08:47)
[2023-05-03] MEDS: CALCIUM/VITAMIN D 250 MG TABLET 4 TABLET PO (08:47)
--- NOTE | 2023-05-03 09:33 | PM.DS ---
DS: Admitting Diagnosis Discharge Date 05/03/2023/ Admitting Diagnosis Rehab, Weakness, femur fracture repaired DS: Discharge Diagnosis Discharge Diagnosis (1) Physical debility: Code(s): R53.81 - Other malaise Status: Acute Assessment and Plan: Admit to Swing Bed program for PT/OT rehabilitation (2) Intertrochanteric fracture of left femur: Qualifiers: Encounter type: subsequent encounter Fracture type: closed Fracture alignment: displaced Fracture healing: with routine healing Qualified Code(s): S72.142D - Displaced intertrochanteric fracture of left femur, subsequent encounter for closed fracture with routine healing Code(s): S72.142A - Displaced intertrochanteric fracture of left femur, initial encounter for closed fracture Status: Acute Assessment and Plan: S/P gamma nail, swing bed for PT/OT rehab (3) Chronic kidney disease, stage 4 (severe): Code(s): N18.4 - Chronic kidney disease, stage 4 (severe) Status: Acute Assessment and Plan: Slight improvement during hospitalization, avoid nephrotoxic medication, ensure adequate hydration (4) Chronic anemia: Code(s): D64.9 - Anemia, unspecified Status: Acute Assessment and Plan: Thrombocytopenia preventing anticoagulant use as patient had post operative hematoma requiring transfusion before discharge. Check CBC every 3-5 days while admitted. (5) Hypocalcemia: Code(s): E83.51 - Hypocalcemia Status: Acute Assessment and Plan: Related to hypoparathyroidism and chronic Vitamin D deficiency (6) Hypoparathyroidism: Code(s): E20.9 - Hypoparathyroidism, unspecified Status: Acute Assessment and Plan: Related to hypoparathyroidism and chronic Vitamin D deficiency (7) Seizure disorder: Code(s): G40.909 - Epilepsy, unspecified, not intractable, without status epilepticus Status: Acute Assessment and Plan: Seizure free for years, continue home medications (8) Hypertension: Code(s): I10 - Essential (primary) hypertension Status: Acute Assessment and Plan: Stable, blood pressure reviewed on 04/21. Continue home medications (9) Vitamin D deficiency due to chronic kidney disease: Code(s): E55.9 - Vitamin D deficiency, unspecified; N18.9 - Chronic kidney disease, unspecified Status: Acute Assessment and Plan: Related to hypoparathyroidism and chronic Vitamin D deficiency due to kidney disease (10) Thrombocytopenia: Code(s): D69.6 - Thrombocytopenia, unspecified Status: Acute Assessment and Plan: Idiopathic. Thrombocytopenia preventing anticoagulant use as patient had post operative hematoma requiring transfusion before discharge. Check CBC every 3-5 days while admitted. Plan Repaired femuir fracture , Weakness Lovenox switched to ASA until 05/14/2023 Continue all home medication Patient stable for discharge at this time. DS: Summary Hospital Course Reason for hospitalization: Weakness, Repair femur fracture Hospital Course: This is a 68 year old mentally challenged male that was admitted for a femur fracture post operatively. Patient is very pleasant and excited about discharge. Discussed in great length with patient about plans on discharge. Reviewed of patient notes as will with therapy seems to be doing well I did come across where patient has declined shower transfer with patient. Patient is dressed and prepared for discharge. Patient is using walker for transfer and is able to ambulate to the bathroom there is some cueing when in the room as I seen him push the walker out of his way. Patient is medically stable for discharge last review of labs he still has some chronic renal issue ntoed. He has remained afebrile continue to eat and drink without difficulty and he denies pain. His outpatient appointment have been scheduled and medication have been ordered. . Status at Di
--- NOTE | 2023-05-03 09:45 | PC.NURSE ---
7716 sister called and very upset with staff in whole, very upset with jt in pt dept that he promised that we train patient in getting in and out of bath tub prior to going home. she claims no one has ever done this. explained I have no bath tub that I can use to teach him to step into and out of. we have a walk in shower we can assist that way. sister still very vocal and upset on phone about patient not having been helped when they promised her. 1000 after researching ot/pt notes it shows that he refused to allow staff to assist him. he refused. also I had attempted this am to give him wet wipes to wash up with. he refused them, he refused to clean socks on too. sister requests to talk ot/pt notes with her. patient agrees to this. did offer again to have him step into shower and no answer at this time. sister is questioning patient of why he refused to work with ot in bathing.
--- NOTE | 2023-05-03 11:20 | PC.NURSE ---
1050 went into room to offer again, to help in shower before going home. sister claims he does not want to shower now. patient speaks up that he really wanted a shower this am but no one would do it. explained to patient that i offered him, how did he want me to assist him in getting ready. that he claimed he only wanted to be handed clothes. did not want clean socks or underwear. offered and handed wet wipes if he changed his mind. he then agreed that he was asked and he did recline offer. sister apologizes, claims he has lied in the past and scolds at him. dc instructions went over with both. sister is aware that home health will call her the day before coming. they are set up for friday. 1100 dc in [place] to sister's car. asked again if any questions and feel free to call back if questions arise.
--- NOTE | 2023-05-05 09:58 | PC.NURSE ---
Discharge follow up completed, instructions were reviewed and states he understood them, when asked if there is anything we could have done better he reports that therapy should have worked with him in regards to showering at home, offer a shower while in hospital, I told patient that we would look in to that and make sure that was included in future needs of [facility] patients.
== END 2023-05-03 11:00 | disposition home health service (06) | DRG 560 ==
PROVIDERS: Nurse Practitioner; Nurse Practitioner Acute Care; Admitting Provider Internal Medicine; PCP Nurse Practitioner Family; Visit Provider Internal Medicine
DX: S72.142D Displaced intertrochanteric fracture of left femur, subsequent encounter for closed fracture with routine healing (principal); N18.4 Chronic kidney disease, stage 4 (severe); I12.9 Hypertensive chronic kidney disease with stage 1 through stage 4 chronic kidney disease, or unspecified chronic kidney disease; E20.9 Hypoparathyroidism, unspecified; E55.9 Vitamin D deficiency, unspecified; D64.9 Anemia, unspecified; D69.6 Thrombocytopenia, unspecified; G40.909 Epilepsy, unspecified, not intractable, without status epilepticus; K21.9 Gastro-esophageal reflux disease without esophagitis; R53.81 Other malaise; F17.210 Nicotine dependence, cigarettes, uncomplicated; W19.XXXD Unspecified fall, subsequent encounter
CPT/HCPCS: 36415; 80053; 85025; 85027; 97110; 97161; 97165; 97530; 97535; A9270; J1650

== ENCOUNTER 2023-07-02 09:06 | Outpatient (CLI) | payer MEDICARE, MEDICAID, SELFPAY ==
--- NOTE | ~2023-07-02 | XR_ITS ---
EXAMINATION: XR hip LT 2V w AP pelvis INDICATION: Left hip surgery follow-up TECHNIQUE: AP view of the pelvis and two views of the left hip are obtained. COMPARISON: 05/19/2023 FINDINGS: There is antegrade intramedullary russel and interlocking intratrochanteric screw fixation of the left femur. Calcified callus continues to increase and remodel at the site of the previously desc ribed comminuted intertrochanteric fracture of the left femur. No new fracture is identified. There i s no hardware failure or loosening. There is mild osteoarthritis of the hips. Calcified atheroscleros is is noted. IMPRESSION: 1. Internally stabilized comminuted intertrochanteric fracture of the left femur with routine healing . Reviewed, dictated and finalized at location B. SERVICE UTILITY WORKER IMPRESSION: 1. Internally stabilized comminuted intertrochanteric fracture of the left femu r with routine healing.
== END 2023-07-02 09:07 | disposition home or self-care (01) ==
PROVIDERS: PCP Family Medicine; Visit Provider Orthopaedic Surgery
DX: Z47.89 Encounter for other orthopedic aftercare (principal); S72.142D Displaced intertrochanteric fracture of left femur, subsequent encounter for closed fracture with routine healing
CPT/HCPCS: 73502